=== PATIENT | female | born 1940 | race Caucasian/White ===

== ENCOUNTER 2019-05-10 15:18 | Inpatient (IN) | payer MEDICARE, OTHER, SELFPAY ==
[2019-05-10 15:19] VITALS: BP 145/107; PULSE 89; RESP 24; TEMP 35.6; O2SAT 99; BMI 28.4
--- NOTE | 2019-05-10 15:54 | CT_ITS ---
STUDY: CT ABDOMEN AND PELVIS WITHOUT CONTRAST REASON FOR EXAM: Female, 79 years old. Left flank pain. Currently on antibiotics for UTI. RADIATION DOSAGE (If Supplied By Facility): CTDIvol = ( 10.37 ) mGy, DLP = ( 471.40 ) mGycm TECHNIQUE: Transaxial images were obtained from the dome of the diaphragm to the symphysis pubis without oral contrast, and without intravenous contrast. Sagittal and coronal images were reconstructed. Individualized dose optimization techniques were used for this CT. COMPARISON: None. FINDINGS: The visualized lung bases are unremarkable. The visualized portions of the heart are within normal limits. Normal liver. Normal gallbladder and extrahepatic biliary system. Normal spleen. Normal pancreas. Normal bilateral adrenal glands. The right kidney is of normal size and cortical thickness. There is a 3 mm nonobstructing calculus lower pole calyx. There is no mass or cyst. There is no hydronephrosis. Normal visualized right ureter. The left kidney is of normal size and cortical thickness. There is a 6 mm calculus in mildly dilated upper pole calyx. There is no mass or cyst. There is no other evidence of hydronephrosis. Normal ureter. There is a 4 x 2 x 2 mm calcification at the left UVJ. This is best seen on image 145 of series 2. Normal visualized stomach. Normal small intestine. Normal colon. There is non-visualization of the appendix. There is diffuse atherosclerotic calcification of the abdominal aorta, without a demonstrated aneurysm. Normal inferior vena cava. Normal retroperitoneum. Normal urinary bladder. Normal uterus and ovaries. There is no pelvic lymphadenopathy. No free air or free fluid is seen within the peritoneal cavity. There is an umbilical hernia omental fat. The abdominal wall is otherwise unremarkable. There are diffuse degenerative changes of the visualized lumbar spine. CT/Abdomen/Pelvis without Cont IMPRESSION: 1. Left UVJ calculus without obstructive uropathy. 2. A large calculus in a dilated calyx in the upper pole the left kidney. There is no associated hydronephrosis. 3. Nonobstructing right renal calculus. 4. No other evidence of acute abdominal or pelvic abnormality. 5. Umbilical hernia. 6. Mild degenerative changes of the lumbar spine Electronically Signed: Ronaldo Rodriguez DO at 16:38 EDT Tel [phone], Service support ,
[2019-05-10] MEDS: Ondansetron 4 MG/2 ML Vial IV (16:04)
[2019-05-10] MEDS: Morphine 4 MG/ML Syringe IV (16:06)
[2019-05-10 16:09] VITALS: BP 170/74; PULSE 71; RESP 18; TEMP 37.2; O2SAT 95
[2019-05-10 16:30] LABS: White Blood Count 8.5 K/mm3 (4.4-11.0)
[2019-05-10 16:31] LABS: Absolute Lymphocyte Count 2.69 X10^3/uL (0.83-4.51); Basophil# 0.04 X10^3/uL; Basophil% 0.5 % (0-1); Eosinophil# 0.09 X10^3/uL; Eosinophils% 1.1 % (0-5); Hematocrit 42.6 % (37-47); Lymphocyte # 2.69 X10^3/ul (4.0); Lymphocyte % 31.7 % (19-41); Mean Corp Hgb Conc 32.9 g/dL (32-36); Mean Corpuscular Hgb 30.2 pg (27.0-32.0); Mean Platelet Vol. 10.4 fl (6.2-12.0); Monocyte# 0.69 X10^3/uL; Monocyte% 8.1 % (0-10); NRBC Flagged by Analyzer 0 % (0-5); Neutrophil # 4.95 X10^3/uL (2.7-7.7); Neutrophil % 58.2 % (47-70); Platelet Count 292 K/mm3 (150-450); RBC Distribution Width CV 12.9 % (11.6-14.6); Red Blood Count 4.63 M/mm3 (4.2-5.4)
[2019-05-10 16:32] LABS: Glucose, Dipstick Normal (Normal); Ketone-Dipstick 5 mg/dl (Negative); Leukocyte Esterase-Dipstick 25 /ul (Negative); Mucous, Urine 0 SEEN /hpf (<or=2+); Nitrite-Dipstick Positive (Negative); Occult Blood-Urine 50 /ul (Negative); Protein-Dipstick 30 mg/dl (Negative); Urine Clarity Sl. Cloudy (Clear); Urine Urobilinogen 12 mg/dl (Normal)
--- NOTE | 2019-05-10 16:32 | ED.VISSUMM ---
- ER Visit Summary Date of Service: 05/10/19 Chief Complaint: Left flank pain History of Present Illness: The patient is a 79 F who presents with left flank pain that has been getting worse over the past 4 days. Patient describes her pain is sharp. Patient states nothing makes it better or worse. Patient was seen in urgent care and diagnosed with a urinary tract infection. Patient was started on Cipro. Patient had no improvement with this. Patient followed up with his primary care physician who repeated urinalysis and change the antibiotic. Patient states she is still not feeling any better. Patient denies any nausea or vomiting. Physical Examination: Vital signs are stable. Patient is afebrile. Patient is in no acute distress. Oral mucosa is pink and moist. Neck is supple. Trachea is midline. There is no JVD. Heart was regular rate and rhythm. Lungs are clear and equal bilaterally. Abdomen is soft. Bowel sounds are normal. There is some mild left lower quadrant left upper quadrant tenderness. There is also some left CVA tenderness. There is no rebound or guarding noted. Cranial nerves II through XII are intact. There are no focal motor or sensory deficits noted. Test Results: CT scan of the abdomen pelvis was obtained. The left UVJ calculus with no obstruction. There is a large calculus in the upper pole of the left kidney with a dilated calyx. There is no hydronephrosis. There is a nonobstructing right renal calculus. CBC was normal. Basic metabolic profile was normal. Analysis shows leukocyte esterase of 25 with positive nitrites. There is you to 5 white blood cells and 0-5 epithelial cells. There is 3+ bacteria. Emergency Department Course and Treatment: Patient was given IV fluids, morphine, and Zofran. Patient was feeling better on reevaluation. Case was discussed with Dr. Pagan. He felt that the patient needed to be admitted. He will admit the patient to his service. Patient and family understood and were agreeable with the plan. All questions were answered. Disposition: Admit to hospital Impression: 1. Left UVJ calculus 2. Left renal calculus 3. Bacteriuria This note was generated with [employer] PBCation software. It may contain incorrect words, spelling, and punctuation that were not noted in review of the chart prior to signing ED Disposition - Plan for ED Patient: Disposition: Acute Care Hospital [facility] Diagnosis: Left ureteral calculus, Left renal stone, Bacteriuria Referrals: Supa Diaz MD [Primary Care Provider] -
[2019-05-10 16:44] LABS: Anion Gap 7 (5-15); BUN 17 mg/dL (7-18); BUN/Creat Ratio 18.8 RATIO (10-20); Calcium,Total 9.6 mg/dL (8.5-10.1); Chloride 106 mmol/L (98-107); EST Glomerular Filtration Rate 64 mL/min (>60); Est Glom Filt Rate - Afr Amer 77 mL/min (>60); Estimated Creatinine Clearance 38.87 ml/min; Glucose 107 mg/dL (74-106); Potassium 3.6 mmol/L (3.5-5.1); Sodium Level 138 mmol/L (136-145)
[2019-05-10 17:17] VITALS: BP 153/65; PULSE 78; RESP 16; TEMP 36.9; O2SAT 92
[2019-05-10 17:35] LABS: Color, Urine SEE COMMENT BELOW (Yellow); Urine Bilirubin Dipstick 6 mg/dL (Negative)
[2019-05-10 17:37] LABS: Red Blood Cells-Urine 5-10 SEEN /hpf (0-5); Squamous Epithelial Cells - UA 0-5 SEEN /hpf (5-10); White Blood Cells 0-5 SEEN /hpf (0-5)
[2019-05-10 17:38] LABS: Bacteria 3+ /hpf (None Seen)
[2019-05-10 18:01] VITALS: RESP 16
[2019-05-10 19:56] VITALS: BMI 28.0
[2019-05-10 20:01] VITALS: BMI 28.0
--- NOTE | 2019-05-10 20:24 | PCM.HP.STD ---
Problem List (1) Left ureteral calculus Status: Acute (2) Pyelonephritis of left kidney Status: Acute History of Present Illness Date of Admission: 05/10/19 Chief Complaint: Left severe flank pain The patient is a 79 year old female who on Wednesday started having lower abdominal pain for she thought she was having a urinary tract infection she went to the urgent care was prescribed Cipro which she started taking but then was not getting any better then went back to another physician and was changed to Keflex. She thinks she had a culture done but I do not have the culture results we will get this from the urgent care. But her symptoms persisted and then she started developing severe left flank pain. Very severe in nature. Nausea. No vomiting. Low-grade fevers. She presented to the emergency room where CAT scan was done demonstrated a stone in the distal left ureter with high-grade obstruction, and also a stone nonobstructing in the left kidney. Urine was positive for bacteria infection and nitrite and leukocytes. Because of the failure to proceed with outpatient treatment she is been seen by 3 or 4 doctors within the past few days with no resolution she was admitted for further care. Past Medical History Allergies No Known Allergies Allergy (Verified 05/10/19 15:22) Home Medications: Ambulatory Orders Medication Instructions Recorded Calcium Carbonate [Calcium] 600 mg PO DAILY 05/10/19 Cholecalciferol (Vitamin D3) 400 unit PO DAILY 05/10/19 [Vitamin D3] Ciprofloxacin [Cipro] 250 mg PO BID 05/10/19 Estrogens, Conjugated [Premarin] 1 gm TOPICAL TU 05/10/19 Gluc Taylor/Chondro Taylor A/Vit C/Mn 2 ea PO DAILY 05/10/19 [Glucosamine Chondroitin Tab] Magnesium 250 mg PO DAILY 05/10/19 Manganese Chloride 3.5 mg PO DAILY 05/10/19 Multivitamin [Multiple Vitamins] 1 ea PO DAILY 05/10/19 Phenazopyridine HCl [Pyridium] 200 mg PO TID PRN 05/10/19 Vitamin E 400 unit PO DAILY 05/10/19 Vits A,C,E/Lutein/Minerals [Vision 2 ea PO DAILY 05/10/19 Formula with Lutein Tab] Zinc Gluconate [Zinc] 15 mg PO DAILY 05/10/19 Surgical History: appendectomy Psychiatric 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 Lives: Spouse/ Significant Other Smoking Status: Never smoker Tobacco Use: Non-smoker Alcohol: None Drugs: None - *Family History Maternal History Items: No pertinent history Review of Systems Constitutional: Reports: Chills HEENT: Denies: Head Aches, Sinus Congestion, Sinus Drainage Cardiovascular: Denies: Chest Pain, Palpitations Respiratory: Denies: Cough, Shortness of breath at rest, Sputum production Gastrointestinal: Reports: Abdominal Pain, Nausea Genitourinary: Reports: Dysuria, Frequency Musculoskeletal: Denies: Joint Pain, Joint Tenderness Skin: Reports: Dryness Neurological: Denies: Numbness, Tingling, Focal weakness Psychiatric: Denies: Anxiety, Depression, Homicidal Ideations, Suicidal Ideations Hematologic/ Lymphatic: Denies: Easy Bruising, Easy Bleeding VTE Information - Inpt Only VTE Present on Admission: No VTE Mechan Device Prophylaxis: SCD's Patient Problems: Active and Suspected Problems Left ureteral calculus (Acute) Left renal stone (Acute) Bacteriuria (Acute) Pyelonephritis of left kidney (Acute) - Physical Exam General: Alert, Oriented x3, Cooperative HEENT: Atraumatic, PERRLA, EOMI, Normocephalic Neck: Supple, No JVD, Negative Carotid Bruits Lungs: Clear to auscultation, Normal air movement Cardiovascular: Regular rate, No murmurs Abdomen: Bowel Sounds Present, Soft, Non Tender Extremities: No edema, Capillary Refill Less than 3 Seconds Skin: No rashes, No breakdown Musculoskeletal: No Tenderness to Palpation of Joints or Extremities Neurological: Cranial nerves II-XII grossly intact Psych/Mental Status: Normal Affect, Appropriate Vital Signs Temp Pulse Resp BP Pulse Ox 98.5 F 78 16 153/65 H 92 05/10/19 17:17 05/10/19 17:17 05/10/19 18:01 05/10/19 17:17 05/10/19 17:17 Oxygen Delivery Method Room Air Weight: 67.268 kg Body Mass Index (BMI) 28.0 Laboratory Tests Past 24 Hrs 05/10/19 05/10/19 05/10/19 15:34 15:36 15:36 WBC 8.5 RBC 4.63 Hgb 14.0 Hct 42.6 MCV 92.0 MCH 30.2 MCHC 32.9 RDW Std Deviation 43.0 RDW Coeff of Joni 12.9 Plt Count 292 MPV 10.4 Immature Gran % (Auto) 0.400 Neut % (Auto) 58.2 Lymph % (Auto) 31.7 [place] % (Auto) 8.1 Eos % (Auto) 1.1 Baso % (Auto) 0.5 Absolute Neuts (auto) 5.0 Absolute Lymphs (auto) 2.69 Nucleated RBC % 0 Sodium 138 Potassium 3.6 Chloride 106 Carbon Dioxide 25.0 Anion Gap 7 BUN 17 Creatinine 0.90 Estim Creat Clear Calc 38.87 Est GFR (MDRD) Af Amer 77 Est GFR (MDRD) Non-Af 64 BUN/Creatinine Ratio 18.8 Glucose 107 H Calcium 9.6 Urine Color SEE COMMENT BELOW Urine Clarity Sl. Cloudy Urine pH 7.0 Ur Specific [place] 1.010 Urine Protein 30 H Urine Glucose (UA) Normal Urine Ketones 5 H Urine Occult Blood 50 H Urine Nitrite Positive H Urine Bilirubin 6 H Urine Urobilinogen 12 H Ur Leukocyte Esterase 25 H Urine RBC 5-10 SEEN Urine WBC 0-5 SEEN Ur Squamous Epith Cells 0-5 SEEN Urine Bacteria 3+ Urine Mucus 0 SEEN Assessment/Plan All Active Problems Left ureteral calculus (Acute) Left renal stone (Acute) Bacteriuria (Acute) Pyelonephritis of left kidney (Acute) 79-year-old female with a distal stone in the left ureter, urine positive for infection has failed outpatient management with outpatient antibiotics. Will be admitted to the hospital for further care. She also has a large nonobstructing stone left kidney. Explained to the patient that given her active infection I will not go after the stone and treated just yet but the plan is to hydrate the patient put on broad-spectrum antibiotics, strain all the urine, and if she fails to pass the stone will taken to surgery on Wednesday for extraction of the stone and most likely a stent placement on the left side. We can then plan for treatment of the left kidney stone and interval setting later on once the infection is cleared. She is agreeable with this plan all her questions were answered she was present with her and her daughter.
[2019-05-10 20:43] VITALS: BP 164/79; PULSE 75; RESP 16; TEMP 36.9; O2SAT 96
[2019-05-10] MEDS: 0.9% Normal Saline 1,000 ML 125 ML IV (22:01)
[2019-05-10] MEDS: Ceftriaxone 1 GM/50 ML BAG IV (22:02)
[2019-05-10] MEDS: 0.9% NaCl Peripheral Flush Adult/Peds IV (22:07)
[2019-05-10] MEDS: Ketorolac 15 MG/ML Vial IV (22:07)
[2019-05-11 04:00] VITALS: BP 155/56; PULSE 61; RESP 18; TEMP 36.9; O2SAT 99
[2019-05-11] MEDS: Ketorolac 15 MG/ML Vial IV ×3 (04:09→18:29)
[2019-05-11] MEDS: 0.9% NaCl Peripheral Flush Adult/Peds IV (04:09)
[2019-05-11] MEDS: 0.9% Normal Saline 1,000 ML 125 ML IV ×3 (04:39→21:54)
[2019-05-11] MEDS: Enoxaparin 40 MG/0.4 ML Syringe SC (06:18)
--- NOTE | 2019-05-11 07:36 | PN_ITS ---
Patient Problems: Active and Suspected Problems Left ureteral calculus (Acute) Left renal stone (Acute) Bacteriuria (Acute) Pyelonephritis of left kidney (Acute) Subjective: Patient feels much better this morning she did have a pain medicine last night. Never saw the stone. We will get an x-ray today to see if the stone is still there possible just to taken to surgery tomorrow we will make her n.p.o. at midnight and added to the schedule. - Physical Exam General: Alert, Oriented x3, Cooperative HEENT: Atraumatic, PERRLA, EOMI, Normocephalic Neck: Supple, No JVD, Negative Carotid Bruits Lungs: Clear to auscultation, Normal air movement Cardiovascular: Regular rate, No murmurs Abdomen: Bowel Sounds Present, Soft, Non Tender Extremities: No edema, Capillary Refill Less than 3 Seconds Skin: No rashes, No breakdown Musculoskeletal: No Tenderness to Palpation of Joints or Extremities Neurological: Cranial nerves II-XII grossly intact Psych/Mental Status: Normal Affect, Appropriate Vital Signs Temp Pulse Resp BP Pulse Ox 98.5 F 61 18 155/56 H 99 05/11/19 04:00 05/11/19 04:00 05/11/19 04:00 05/11/19 04:00 05/11/19 04:00 Oxygen Delivery Method Room Air Weight: 67.268 kg Body Mass Index (BMI) 28.0 Intake and Output for Last 24 Hours 05/09/19 05/10/19 05/11/19 23:59 23:59 23:59 Intake Total 1181 / 1181 Output Total 1000 / 1000 Balance 181 / 181 Laboratory Tests Past 24 Hrs 05/10/19 05/10/19 05/10/19 15:34 15:36 15:36 WBC 8.5 RBC 4.63 Hgb 14.0 Hct 42.6 MCV 92.0 MCH 30.2 MCHC 32.9 RDW Std Deviation 43.0 RDW Coeff of Joni 12.9 Plt Count 292 MPV 10.4 Immature Gran % (Auto) 0.400 Neut % (Auto) 58.2 Lymph % (Auto) 31.7 [place] % (Auto) 8.1 Eos % (Auto) 1.1 Baso % (Auto) 0.5 Absolute Neuts (auto) 5.0 Absolute Lymphs (auto) 2.69 Nucleated RBC % 0 Sodium 138 Potassium 3.6 Chloride 106 Carbon Dioxide 25.0 Anion Gap 7 BUN 17 Creatinine 0.90 Estim Creat Clear Calc 38.87 Est GFR (MDRD) Af Amer 77 Est GFR (MDRD) Non-Af 64 BUN/Creatinine Ratio 18.8 Glucose 107 H Calcium 9.6 Urine Color SEE COMMENT BELOW Urine Clarity Sl. Cloudy Urine pH 7.0 Ur Specific [place] 1.010 Urine Protein 30 H Urine Glucose (UA) Normal Urine Ketones 5 H Urine Occult Blood 50 H Urine Nitrite Positive H Urine Bilirubin 6 H Urine Urobilinogen 12 H Ur Leukocyte Esterase 25 H Urine RBC 5-10 SEEN Urine WBC 0-5 SEEN Ur Squamous Epith Cells 0-5 SEEN Urine Bacteria 3+ Urine Mucus 0 SEEN Medical Necessity - Tobacco Use Smoking Status: Never smoker Tobacco Use: Non-smoker Assessment/Plan All Active Problems Left ureteral calculus (Acute) Left renal stone (Acute) Bacteriuria (Acute) Pyelonephritis of left kidney (Acute) kub today OR in AM for laser stone possible stent NPO at midnight.
--- NOTE | 2019-05-11 07:39 | RAD_ITS ---
STUDY: X-RAY - ABDOMEN/PELVIS REASON FOR EXAM: Female, 79 years old. Left kidney stones. TECHNIQUE: Single AP view of the abdomen / pelvis. COMPARISON: None. FINDINGS: There is a moderate amount of colonic fecal material. There is a 5.5 mm calculus in the lower pole calyx of the left kidney. Normal soft tissue structures. There are diffuse degenerative changes of the visualized lumbar spine. RAD/Abdomen Single View IMPRESSION: 5.5 mm calculus in the lower pole calyx of the left kidney. Electronically Signed: Joel Dewitt, at 14:35 EDT , Service support ,
[2019-05-11 10:00] VITALS: BP 148/63; PULSE 66; RESP 18; TEMP 36.4; O2SAT 99
[2019-05-11] MEDS: Docusate Sodium 100 MG Capsule 200 MG PO ×2 (10:29→21:53)
[2019-05-11] MEDS: Ceftriaxone 1 GM/50 ML BAG IV (10:29)
--- NOTE | 2019-05-11 11:30 | CASEMGMT ---
RN CM WEB DEVELOPMENT INSTRUCTOR CM to room to meet with patient for initial transition planning/care coordination assessment. RN CHEO introduced self and role at [facility]. Pt voices understanding and consents to assessment at this time. Pt resting in bed in no distress at this time. Pt is A/O at this time and answers all questions appropriately. Care providers, pharmacy, and demographics verified/updated at this time. PCP: Emily Blas Pharmacy: [facility] Retail Insurance: [facility], Physician Cunningham Prescription Benefit: Yes Living Will/HPOA: Has both LW and HCPOA, who is her , Rahul PEREZ: . 4 adult children Living Arrangements: Lives with her and son Gómez lives with them. Lives in a 2-story home. Denies difficulty with stairs. Independent. Transportation: Pt states drives self and states no transportation concerns at this time. will drive her home @ discharge. DME: Denies using any DME and denies needs. HHC/SNF: No history of either and no needs identified. Pt wishes to return home and states has no concerns with going home at time of discharge. CM to follow for any discharge planning/needs. Pt voices no further concerns/needs at this time. Advised pt to ask for CM if any further questions/concerns/needs arise. Voices understanding. PLAN: Home with spousal support and discharge plans in place. Darby COBB RN, CM
[2019-05-11 16:00] VITALS: BP 152/75; PULSE 73; RESP 18; TEMP 36.6; O2SAT 99
[2019-05-11 20:20] VITALS: BP 140/96; PULSE 74; RESP 18; TEMP 36.6; O2SAT 98
[2019-05-12] VITALS (11 sets, daily range): BP systolic 130–155; BP diastolic 63–82; PULSE 66–100; RESP 16–20; TEMP 36.2–36.9; O2SAT 93–98; BMI 28.0
[2019-05-12] MEDS: Ketorolac 15 MG/ML Vial IV ×3 (01:42→14:23)
[2019-05-12] MEDS: 0.9% Normal Saline 1,000 ML 125 ML IV (05:58)
[2019-05-12] MEDS: 0.9% NaCl Peripheral Flush Adult/Peds IV ×2 (07:59→14:23)
--- NOTE | 2019-05-12 09:06 | PCM.DC.URO ---
Discharge Diet: Light diet - advance as tolerated Discharge Activity: Return to Normal Activity Call your doctor if your incision/area has: Continuous Slow Oozing Call your doctor if you observe: Fever of 101 or Higher Suture Line Care: Avoid Pulling/Pushing, Avoid Pinching/Bending Instructions: Treating Kidney Stones: Ureteroscopic Stone Removal, Ureteral Stents Allergies/Adverse Reactions: Allergies No Known Allergies Allergy (Verified 05/10/19 15:22) Medications to take at Discharge Calcium Carbonate [Calcium] 600 mg PO DAILY 05/10/19 Cholecalciferol (Vitamin D3) [Vitamin D3] 400 unit PO DAILY 05/10/19 Ciprofloxacin [Cipro] 250 mg PO BID 05/10/19 Estrogens, Conjugated [Premarin] 1 gm TOPICAL TU 05/10/19 Gluc Taylor/Chondro Taylor A/Vit C/Mn [Glucosamine Chondroitin Tab] 2 ea PO DAILY 05/10/19 Magnesium 250 mg PO DAILY 05/10/19 Manganese Chloride 3.5 mg PO DAILY 05/10/19 Multivitamin [Multiple Vitamins] 1 ea PO DAILY 05/10/19 Phenazopyridine HCl [Pyridium] 200 mg PO TID PRN 05/10/19 Vitamin E 400 unit PO DAILY 05/10/19 Vits A,C,E/Lutein/Minerals [Vision Formula with Lutein Tab] 2 ea PO DAILY 05/10/19 Zinc Gluconate [Zinc] 15 mg PO DAILY 05/10/19 Cephalexin [Keflex] 500 mg PO Q8 #21 cap 05/12/19 Hydrocodone/Acetaminophen [[place] 5-325 Tablet] 1 ea PO Q4H PRN PRN 5 Days #20 tab 05/12/19 The following prescriptions were given: Cephalexin [Keflex] 500 mg PO Q8 #21 cap Prescription Printed Hydrocodone/Acetaminophen [[place] 5-325 Tablet] 1 ea PO Q4H PRN PRN 5 Days #20 tab PRN Reason: Pain Prescription Printed Primary Care Physician: Supa Diaz MD [Primary Care Provider] - Test Results: Test results from this visit will be discussed in further detail at your follow-up appointment, if applicable. Please Follow Up With: Connor Pagan MD When: please call to make an appointment.
--- NOTE | 2019-05-12 09:07 | PCM.DC.SUM ---
Discharge Date and Diagnosis - Problem List Patient Problems: Active and Suspected Problems Left ureteral calculus (Acute) Left renal stone (Acute) Bacteriuria (Acute) Pyelonephritis of left kidney (Acute) Date of Admission: 05/10/19 Date of Discharge: 05/12/19 - Primary Discharge Diagnosis Active and Suspected Problems Left ureteral calculus (Acute) Left renal stone (Acute) Bacteriuria (Acute) Pyelonephritis of left kidney (Acute) Hospital Course and Treatment Imaging Results: 05/12/19 10:10 O.R. Fluoro for C-Arm [RAD] Urgent Operations: - - Ureteroscopy and laser stone and stent Procedures: None Summary of Care Provided: The patient is a 79 year old female with a UTI and a stone in the distal left ureter and a stone up in the kidney she admitted to the hospital for pyelonephritis UTI she is taken the operating room for ureteroscopy laser lithotripsy of the stone fragments and stent placement to go home after the procedure will be discharged home with antibiotics. Patient Problems: Active and Suspected Problems Left ureteral calculus (Acute) Left renal stone (Acute) Bacteriuria (Acute) Pyelonephritis of left kidney (Acute) - Physical Exam General: Alert, Oriented x3, Cooperative HEENT: Atraumatic, PERRLA, EOMI, Normocephalic Neck: Supple, No JVD, Negative Carotid Bruits Lungs: Clear to auscultation, Normal air movement Cardiovascular: Regular rate, No murmurs Abdomen: Bowel Sounds Present, Soft, Non Tender Extremities: No edema, Capillary Refill Less than 3 Seconds Skin: No rashes, No breakdown Musculoskeletal: No Tenderness to Palpation of Joints or Extremities Neurological: Cranial nerves II-XII grossly intact Psych/Mental Status: Normal Affect, Appropriate Vital Signs Temp Pulse Resp BP Pulse Ox 98.1 F 67 18 144/82 H 97 05/12/19 08:07 05/12/19 08:07 05/12/19 08:07 05/12/19 08:07 05/12/19 08:07 Oxygen Delivery Method Room Air Weight: 67.26 kg Body Mass Index (BMI) 28.0 Intake and Output for Last 24 Hours 05/10/19 05/11/19 05/12/19 23:59 23:59 23:59 Intake Total 3331 / 3331 988 / 988 Output Total 1950 / 1950 1500 / 1500 Balance 1381 / 1381 -512 / -512 Discharge Diet: Light diet - advance as tolerated Discharge Activity: Return to Normal Activity Call your doctor if your incision/area has: Continuous Slow Oozing Call your doctor if you observe: Fever of 101 or Higher Suture Line Care: Avoid Pulling/Pushing, Avoid Pinching/Bending Home Medications: Medications to take at Discharge Calcium Carbonate [Calcium] 600 mg PO DAILY 05/10/19 Cholecalciferol (Vitamin D3) [Vitamin D3] 400 unit PO DAILY 05/10/19 Ciprofloxacin [Cipro] 250 mg PO BID 05/10/19 Estrogens, Conjugated [Premarin] 1 gm TOPICAL TU 05/10/19 Gluc Taylor/Chondro Taylor A/Vit C/Mn [Glucosamine Chondroitin Tab] 2 ea PO DAILY 05/10/19 Magnesium 250 mg PO DAILY 05/10/19 Manganese Chloride 3.5 mg PO DAILY 05/10/19 Multivitamin [Multiple Vitamins] 1 ea PO DAILY 05/10/19 Phenazopyridine HCl [Pyridium] 200 mg PO TID PRN 05/10/19 Vitamin E 400 unit PO DAILY 05/10/19 Vits A,C,E/Lutein/Minerals [Vision Formula with Lutein Tab] 2 ea PO DAILY 05/10/19 Zinc Gluconate [Zinc] 15 mg PO DAILY 05/10/19 Cephalexin [Keflex] 500 mg PO Q8 #21 cap 05/12/19 Hydrocodone/Acetaminophen [[place] 5-325 Tablet] 1 ea PO Q4H PRN PRN 5 Days #20 tab 05/12/19 Following Prescrptions Were Given to Patient: Cephalexin [Keflex] 500 mg PO Q8 #21 cap Prescription Printed Hydrocodone/Acetaminophen [[place] 5-325 Tablet] 1 ea PO Q4H PRN PRN 5 Days #20 tab PRN Reason: Pain Prescription Printed Primary Care Physician: Supa Diaz MD [Primary Care Provider] - Please Follow Up With: Connor Pagan MD When: please call to make an appointment. Patient Instructions: Ureteral Stents, Treating Kidney Stones: Ureteroscopic Stone Removal Medical Necessity - Tobacco Use Smoking Status: Never smoker Tobacco Use: Non-smoker Meaningful Use Info Meaningful Use Diagnoses (Choose all that apply): None applicable
--- NOTE | 2019-05-12 09:34 | PCA ---
pt off floor
--- NOTE | 2019-05-12 09:49 | PCM.OPRPT ---
Problem List (1) Left ureteral calculus Status: Acute (2) Pyelonephritis of left kidney Status: Acute Report of Operation Date of Procedure: 05/12/19 Pre-Operative Diagnosis: Left distal ureteral calculi left renal calculi, Post-Operative Diagnosis: The same Surgery/Procedure Performed:: Cystoscopy and balloon dilation of left ureter, and extraction of stone from the left ureter, left retrograde pyelogram interpretation fluoroscopic images, left ureteroscopy laser lithotripsy of stone in the kidney and left stent placement Description of Surgical Findings:: 79-year-old female was taken back to the operating room at the smooth induction of general anesthesia she was placed supine on the table, she was then placed in dorsolithotomy position. The urethra and vaginal area were prepped and draped in usual sterile fashion, went into the bladder with a 21 [place] rigid cystourethroscope, when I got into the bladder immediately could see a stone emanating from the left ureteral orifice I used the Glidewire to poke at the stone and eventually got the stone to free up and come loose from the distal left ureteral orifice. I then used a wire in it and went up the ureter with a wire and over the wire I balloon dilated distal left ureteral orifice with a balloon dilator to open up the ureter. I then left the wire in place and over the wire went in with a flexible ureteroscope went all the way up to the upper pole the left kidney and encountered multiple large fragments. I then used a 270 ?m laser fiber laser the stone a little tiny pieces. Once the stone was completely laser into small pieces that should all pass of the retrograde pyelogram. Interpreted the fluoroscopic images. And then once the contrast was in place could see the anatomy of the kidney and the ureter I advanced a wire up into the kidney over the wire backed down the ureter inspect the entire ureter no injury trauma perforation of the ureter. I then advanced a stent up in the left kidney once a stent is good position I pulled the wire the stent coiled in the kidney bladder but good position and then I drained the bladder and the patient anesthetic was reversed she will be discharged home today from the hospital and she will follow-up next week to have stent removed. Type of Anesthesia:: General Drains: stent - Admit VTE Documentation VTE Present on Admission: No VTE Mechan Device Prophylaxis: SCD's
[2019-05-12] MEDS: Phenazopyridine 95 MG Tablet 190 MG PO (15:38)
== END 2019-05-12 17:45 | disposition home or self-care (01) | DRG 660 ==
LOC: ED 18:51 → MS3 21:12
PROVIDERS: Admitting Provider Urology; Emergency Provider Emergency Medicine; Family Provider Family Medicine; PCP Family Medicine; Referring Provider Urology; Visit Provider Urology
PROC: 0TJ98ZZ Inspection of Ureter, Via Natural or Artificial Opening Endoscopic (ICD-10-PCS; CPT 52352; principal; 2019-05-12 10:00)
DX: N20.2 Calculus of kidney with calculus of ureter (principal); N10 Acute pyelonephritis; Z78.0 Asymptomatic menopausal state; Z79.899 Other long term (current) drug therapy
CPT/HCPCS: 74018; 74176; 76000; 80048; 81001; 85025; 99285; J7030; A4216; C1769; C2617; J2405

== ENCOUNTER → 2019-05-18 08:22 | Outpatient (CLI) | payer MEDICARE, OTHER, SELFPAY ==
[2019-05-12 08:07] VITALS: BMI 28.0
--- NOTE | 2019-05-18 08:26 | RAD_ITS ---
STUDY: X-RAY - ABDOMEN/PELVIS REASON FOR EXAM: Female, 79 years old. Kidney stone TECHNIQUE: KUB COMPARISON: May 11, 2019 FINDINGS: Normal visualized lung bases. There is an unremarkable bowel gas pattern. There is no demonstrated free abdominal air. The visualized liver, spleen and kidneys are grossly normal in size and morphology. Previously noted left renal calculus is not identified on current study. Left ureterovesical stent has been placed. Lumbar spine demonstrates scoliosis and degenerative changes RAD/Abdomen Single View IMPRESSION: Nonvisualization of prior left renal calculus status post ureterovesical stent placement. Electronically Signed: Jorje Wilkerson MD at 16:59 EDT , Service support ,
== END ==
PROVIDERS: Family Provider Family Medicine; PCP Family Medicine; Referring Provider Nurse Practitioner Adult Health; Visit Provider Nurse Practitioner Adult Health
DX: N20.0 Calculus of kidney (principal)
CPT/HCPCS: 74018

== ENCOUNTER 2019-07-29 13:24 | Emergency (ER) | payer MEDICARE, OTHER, SELFPAY ==
[2019-05-12 08:07] VITALS: BMI 28.0
[2019-07-29] VITALS (7 sets, daily range): BP systolic 125–181; BP diastolic 59–94; PULSE 61–89; RESP 14–20; TEMP 36.7; O2SAT 95–100; BMI 26.4
--- NOTE | 2019-07-29 13:48 | RAD_ITS ---
STUDY: X-RAY - LEFT HUMERUS REASON FOR EXAM: Female, 79 years old. Left arm pain. Status post fall. TECHNIQUE: AP and lateral view(s) of the humerus. COMPARISON: None. FINDINGS: There is anterior dislocation of the left humerus. Surgical pins are seen in the humeral head. There is no demonstrated fracture or osseous destructive process. There is no demonstrated soft tissue abnormality. RAD/Humerus min 2 Views IMPRESSION: 1. Anterior dislocation of the left shoulder. 2. No demonstrated fracture of the humeral shaft. Electronically Signed: Feng Martinez MD at 14:26 EDT Tel , Service support ,
--- NOTE | 2019-07-29 13:49 | ED.VIS.GEN ---
History of Present Illness Chief Complaint: Upper Extremity Injury Informant: Patient, Family Onset: Today Current Severity: Severe Past Medical History - Allergies and Home Meds Allergies/Adverse Reactions: Allergies No Known Allergies Allergy (Verified 07/29/19 13:28) Primary Care Physician: Supa Diaz MD [Primary Care Provider] - Hernán Sarabia DO [STAFF PHYSICIAN] - 3-5 Days Surgical History: appendectomy Smoking Status: Never smoker - Family History Maternal Family History: Reports: No pertinent history Review of Systems General: Denies: Chills, Fever, Sweats Eyes: Denies: Visual changes - bilaterally, Diplopia ENT: Denies: Rhinorrhea, Sore throat Cardiovascular: Denies: Chest pain, Palpitations Respiratory: Denies: Dyspnea, Cough, Dyspnea on exertion Gastrointestinal: Denies: Abdominal pain, Nausea, Vomiting, Diarrhea, Melena, Hematochezia Genitourinary: Denies: Dysuria, Hematuria, Frequency Musculoskeletal: Reports: Extremity Pain. Denies: Back pain Skin: Denies: Rash, Wounds Neurological: Denies: Headache, Weakness, Numbness Physical Exam Vital Signs/Narrative: Vital Signs Temp Pulse Resp BP Pulse Ox 07/29/19 13:25 98.0 F 61 17 125/80 H 99 General: Well nourished, Well developed, No Acute Distress Head: Normocephalic, Atraumatic Eyes: Perrl, EOMI ENT: Moist mucous membranes, No rhinorrhea Neck: Supple, Nontender Cardiovascular: Regular rate, Regular rhythm, No murmurs Respiratory: No distress, CTA bilaterally, Chest nontender Abdomen: Soft, Nontender, Nondistended, Normal bowel sounds Back: Nontender, Normal Inspection Extremities: - Skin: Normal color, No rash Neurological: Alert, Oriented x3, Cranial nerves II-XII grossly intact, Normal Strength, Normal Sensation Psychological: Normal affect, Normal Mood Diagnostic/Tx/Re-eval Clinical Impression(s) from Imaging Studies Humerus X-Ray 07/29/19 13:48 IMPRESSION: 1. Anterior dislocation of the left shoulder. 2. No demonstrated fracture of the humeral shaft. Electronically Signed: Feng Martinez MD at 14:26 EDT Tel , Service support , Shoulder X-Ray 07/29/19 15:06 IMPRESSION: Reduced dislocation. Electronically Signed: Feng Martinez MD at 15:20 EDT Tel , Service support , - Medical Decision Making Patient was evaluated for fall. She had acute onset left shoulder pain. X-ray shows an anterior displaced left shoulder dislocation. Informed consent was obtained. Patient was sedated while on quality assurance monitor chassis using a milligrams of IV propofol. Shoulder was reduced on first attempt. Patient tolerated procedure well. Patient was observed in emergency department post reduction. Postreduction x-rays showed successful reduction. Patient will be placed in a sling and swath. She will be instructed to follow-up with orthopedic surgeon. Patient was then discharged home. Impression: 1. Left shoulder dislocation, successful reduction I supervised the resident and have performed my own pertinent history and physical. Results and treatment plan were discussed. HPI: Patient reports that she missed a step and fell and injured her left shoulder. She denies any other injuries. No blood in the head or loss of consciousness. She is not on anticoagulants. She denies any wrist or hip pain. No neck or back pain. PE: Head: Atraumatic. Neck: No tenderness palpation. Back: No tenderness palpation. Extremity: Obvious anterior dislocation of her left shoulder. She has normal sensation distally and over her deltoid. She has no pain over her wrists or hips. Emergency Department course: X-ray shows an anterior dislocation without fracture. Patient was treated with morphine and had procedural sedation undertaken with propofol. Her shoulder is reduced. She tolerated this well. Treatment Plan: Patient has had a rotator cuff repair in the past by Dr. Sarabia. She will be discharged in a sling and swath. Given [place] for pain. Instructed to follow-up with him in 3 to 5 days for another exam. Return to the emergency department for any worsening symptoms. This note was generated with [employer] dictation software. It may contain incorrect words, spelling, and punctuation that were not noted in review of the chart prior to signing. ED Disposition - Plan for ED Patient: Instructions: DISLOCATION: SHOULDER (Reduced) Prescriptions: Hydrocodone Bitart/Apap 5-325 [[place] 5MG-325MG] 1 tab PO Q4H PRN PRN 2 Days #10 tab PRN Reason: Pain Prescription Printed Referrals: Supa Diaz MD [Primary Care Provider] - Hernán Sarabia DO [STAFF PHYSICIAN] - 3-5 Days
[2019-07-29] MEDS: Morphine 4 MG/ML Syringe IV ×2 (13:53→14:28)
[2019-07-29] MEDS: Ondansetron 4 MG/2 ML Vial IV (14:27)
[2019-07-29] MEDS: Propofol 200 MG/20 ML Vial IV BOLUS (14:54)
--- NOTE | 2019-07-29 15:06 | RAD_ITS ---
STUDY: X-RAY - RIGHT SHOULDER REASON FOR EXAM: Female, 79 years old. Post reduction. TECHNIQUE: 2 view(s) of the shoulder. COMPARISON: Previous of the same date on earlier. FINDINGS: There is cephalad migration of the humeral head consistent with rotator cuff pathology. The previously noted dislocation of the left shoulder has been reduced. Normal acromioclavicular joint. Normal acromion. There is no demonstrated acute fracture. Surgical pins are again seen overlying the left humeral head. The soft tissue structures are unremarkable. Normal visualized pulmonary apex. RAD/Shoulder min 2 Views IMPRESSION: Reduced dislocation. Electronically Signed: Feng Martinez MD at 15:20 EDT Tel , Service support ,
== END 2019-07-29 16:04 | disposition home or self-care (01) ==
PROVIDERS: Emergency Provider Emergency Medicine; Family Provider Family Medicine; PCP Family Medicine
DX: S43.015A Anterior dislocation of left humerus, initial encounter (principal); W10.9XXA Fall (on) (from) unspecified stairs and steps, initial encounter; Y93.9 Activity, unspecified; Y92.9 Unspecified place or not applicable; Y99.9 Unspecified external cause status; Z79.899 Other long term (current) drug therapy
CPT/HCPCS: 23650; 73030; 73060; 96374; 96375; 96376; 99152; 99284; J7040; A4216; J2405

== ENCOUNTER 2020-11-27 08:28 | Outpatient (RCR) | payer MEDICARE, OTHER, SELFPAY ==
[2019-07-29 13:25] VITALS: BMI 26.4
== END 2020-11-27 23:59 ==
LOC: IMMUN 08:28
PROVIDERS: PCP Family Medicine; Visit Provider Family Medicine
DX: Z23 Encounter for immunization (principal)
CPT/HCPCS: 0011A; 0012A

== ENCOUNTER 2021-04-22 15:22 | Observation (INO) | payer MEDICARE, OTHER, SELFPAY ==
[2019-07-29 13:25] VITALS: BMI 26.4
[2021-04-22] VITALS (10 sets, daily range): BP systolic 156–217; BP diastolic 70–89; PULSE 74–95; RESP 14–18; TEMP 36.5–37.1; O2SAT 96–98; BMI 28.3; BMI 28.1
--- NOTE | 2021-04-22 16:06 | CT_ITS ---
EXAMINATION : Head CT w/out contrast HISTORY : Dizziness COMPARISON : None. TECHNIQUE : Multiple contiguous axial images were obtained from the skull base to the vertex without intravenous contrast. A radiation dose optimization technique was used for this scan. FINDINGS : There is no evidence for acute intracranial hemorrhage, mass effect, or midline shift. There is no extra-axial fluid collection. There are periventricular white matter changes consistent with chronic microvascular ischemic disease. There is sulcal widening and ventricular enlargement consistent with cerebral atrophy. There is normal rm-white differentiation, without CT evidence of acute ischemia or infarct. The skull base and calvarium are unremarkable. The orbits are unremarkable. The paranasal sinuses are clear. The mastoid air cells are well-aerated. The soft tissues are unremarkable. CT/Brain/Head without Contrast IMPRESSION: No acute intracranial abnormality. Chronic involutional and ischemic changes of the brain. Electronically Signed: Jacob Mahoney MD at 16:48 EDT Tel , Service support ,
--- NOTE | 2021-04-22 16:13 | EX.ED.DYSGE1 ---
HPI History of Present Illness Chief Complaint: Dizziness Informant: patient Narrative Narrative: Patient is a 81-year-old previously healthy female who presents to the emergency department for what she believes is vertigo. Started around 1130 today. She was just standing up walking around when the symptoms started. She states that she did have 1 similar episode many years ago but has been doing well since. She states that certain head movements make her symptoms worse. Lying still seems to relieve her symptoms. She has been nauseous and vomiting with this. She has not taken anything for it denies any headache or vision change. No weakness or loss of sensation in any extremity. No chest pain, shortness of breath or heart palpitations. She denies any recent illness. No cough, fever/chills. PFSH PFSH Home Medications calcium carbonate 600 mg PO DAILY 05/10/19 [History Last Taken 05/10/19] cholecalciferol (vitamin D3) 400 unit PO DAILY 05/10/19 [History Last Taken 05/10/19] conjugated estrogens 1 gm TOPICAL TU 05/10/19 [History Last Taken 05/09/19] bqqvgqsurxm-iwkzdzkuu-sli C-Mn 2 ea PO DAILY 05/10/19 [History Last Taken 05/10/19] magnesium 250 mg PO DAILY 05/10/19 [History Last Taken 05/10/19] multivitamin 1 ea PO DAILY 05/10/19 [History Last Taken 05/10/19] vit A,C and J-wuherp-kaltyhlb 2 ea PO DAILY 05/10/19 [History Last Taken 05/10/19] vitamin E 400 unit PO DAILY 05/10/19 [History Last Taken 05/10/19] meclizine 25 mg PO TID PRN #20 tab 04/22/21 [Rx Last Taken Unknown] Allergy/AdvReac Type Severity Reaction Status Date / Time No Known Allergies Allergy Verified 04/22/21 15:23 Surgical History (Updated 04/22/21 @ 15:52 by Juana Willoughby) History of appendectomy Social History Smoking Status: Never smoker ROS ROS ED Constitutional Constitutional ED: Denies chills or fever(s) Eyes Eyes: Denies change in vision ENT ENT ED: Denies epistaxis or rhinorrhea Cardiovascular Cardiovascular: Denies chest pain or palpitations Respiratory/Chest Respiratory/Chest: Denies cough, dyspnea or dyspnea on exertion Gastrointestinal Gastrointestinal: Reports nausea and vomiting; Denies abdominal pain or diarrhea Genitourinary Genitourinary ED: Denies dysuria, hematuria or urinary frequency Musculoskeletal Musculoskeletal: Denies back pain or neck pain Integumentary Denies rash Neurologic Neurologic: Reports other Details: Dizziness ; Denies headache(s) or weakness EXAM Physical Exam Const Vital Signs: 04/22/21 15:23 04/22/21 15:51 04/22/21 17:50 Temperature 98.7 F Temperature Source Temporal Pulse Rate 95 Respiratory Rate 18 Respiratory Effort Normal Non-Labored Blood Pressure 217/83 H 211/83 H Blood Pressure Mean 127 125 Pulse Ox 96 Oxygen Delivery Method Room Air 04/22/21 18:17 04/22/21 19:29 04/22/21 20:09 Temperature Temperature Source Pulse Rate 89 74 74 Respiratory Rate 18 16 14 Respiratory Effort Blood Pressure 201/86 H 156/74 H 181/82 H Blood Pressure Mean 124 101 Pulse Ox 98 97 96 Oxygen Delivery Method Room Air Room Air 04/22/21 21:37 04/22/21 22:00 04/22/21 22:35 Temperature 98.2 F Temperature Source Temporal Pulse Rate 81 78 Respiratory Rate 15 16 15 Respiratory Effort Blood Pressure 180/70 H 178/79 H Blood Pressure Mean 106 112 Pulse Ox 97 96 Oxygen Delivery Method Room Air Room Air Positive well nourished and well developed General Appearance ED: well developed and NAD HEENT Reports normocephalic, head/scalp atraumatic and moist mucous membranes Eyes PERRL and EOMs intact bilaterally Eyes Narrative: Fatigable nystagmus to the left. Neck supple Resp normal respiratory effort and clear to auscultation bilaterally Auscultation: Negative for rales, rhonchi or wheezes Cardio regular rate, regular rhythm and no murmurs GI normal to inspection, nondistended, normoactive bowel sounds and non-tender Palpation: soft; Negative for guarding or rebound tenderness present Back/Spine no CVA tenderness Extremity normal to inspection General Extremety ED: Negative for edema or tenderness General Extremity: Negative for edema Neuro oriented x3, CN's II-XII intact bilaterally and no sensory deficits noted Neuro Narrative: No discoordination. No focal neurological deficits. Sensorium / Orientation: alert Motor Exam: strength 5/5 throughout Psych mental status grossly normal Skin no rashes or lesions noted MDM MDM MDM Narrative Medical decision making narrative: Patient presents to the ED for dizziness. This is worse with head positioning. She does describe it as a room spinning sensation. On arrival to the ED she is hypertensive. Otherwise normal vital signs. She does have nystagmus to the left. No focal deficits on exam. Given her hypertension and only one previous episode of this many years ago will obtain head CT. Will treat with meclizine. CT scan of the patient's head revealed chronic changes. No acute intracranial pathology noted. Patient was feeling better and tried to ambulate. Each time she stood up she felt very dizzy and had episodes of vomiting. They were willing to try going home. I did write prescription for meclizine for home treatment. Upon discharge patient had another episode of vomiting and not want to stay in the hospital. I believe that this is a reasonable plan. Basic lab work obtained which did not reveal any significant acute abnormality. Will bring into the hospital for further evaluation and treatment at this time. She understands and is agreeable this plan. Lab Data Labs: Laboratory Results - last 24 hr 04/22/21 04/22/21 21:35 21:35 WBC 8.3 RBC 4.33 Hgb 13.0 Hct 39.4 MCV 91.0 MCH 30.0 MCHC 33.0 RDW Std Deviation 43.1 RDW Coeff of Joni 13.0 Plt Count 275 MPV 10.2 Immature Gran % (Auto) 0.600 Neut % (Auto) 83.5 H Lymph % (Auto) 11.4 L [place] % (Auto) 4.3 Eos % (Auto) 0.0 Baso % (Auto) 0.2 Absolute Neuts (auto) 6.9 Absolute Lymphs (auto) 0.95 Nucleated RBC % 0 Sodium 135 L Potassium 3.7 Chloride 104 Carbon Dioxide 25.0 Anion Gap 6 BUN 10 Creatinine 0.54 L Estim Creat Clear Calc 33.86 Est GFR (MDRD) Af Amer 139 Est GFR (MDRD) Non-Af 115 BUN/Creatinine Ratio 18.5 Glucose 125 H Calcium 8.1 L Radiography Diagnostic Testing: Radiology Impression Brain CT 04/22/21 16:06 IMPRESSION: No acute intracranial abnormality. Chronic involutional and ischemic changes of the brain. Electronically Signed: Jacob Mahoney MD at 16:48 EDT Tel , Service support , Discharge Plan Dx/Rx/DC Orders Clinical Impression: Vertigo, Vomiting, Elevated blood pressure reading Disposition Disposition: Acute Care Hospital [facility]
[2021-04-22] MEDS: Ondansetron ODT 4 MG Tablet PO (16:20)
[2021-04-22] MEDS: 0.9% Normal Saline 1,000 ML 1000 ML IV (16:54)
[2021-04-22] MEDS: LORazepam 2 MG/ML Syringe 0.5 MG IV (16:58)
[2021-04-22] MEDS: Meclizine HCl 25 MG Tablet PO (17:27)
--- NOTE | 2021-04-22 19:30 | ED.RN ---
Patient able to sit up on her own but dizziness came on when standing. She ambulated 2-3 steps began to sway. Patient not able to proceed with walk d/t safety concerns for fall. Her daughter reports they prefer for patient to go home, if safe per the doctor and then if still a problem tomorrow, they can think about something else or her staying. Says the patient's daughter and son will be in the house with her tonight. Dr Hampton aware.
[2021-04-22 21:40] LABS: Absolute Lymphocyte Count 0.95 X10^3/uL (0.83-4.51); Absolute Neutrophil Count 6.9 X10^3/uL (2.0-7.7); Basophil# 0.02 X10^3/uL; Basophil% 0.2 % (0-1); Hematocrit 39.4 % (37-47); Lymphocyte # 0.95 X10^3/ul (0.83-4.51); Lymphocyte % 11.4 % (19-41); Mean Platelet Vol. 10.2 fl (6.2-12.0); Monocyte# 0.36 X10^3/uL; Monocyte% 4.3 % (0-10); NRBC Flagged by Analyzer 0 % (0-5); Neutrophil # 6.92 X10^3/uL (2.7-7.7); Neutrophil % 83.5 % (47-70); Platelet Count 275 K/mm3 (150-450); RBC Distribution Width SD 43.1 fl (35.1-43.9); Red Blood Count 4.33 M/mm3 (4.2-5.4); White Blood Count 8.3 K/mm3 (4.4-11.0)
[2021-04-22 22:26] LABS: Anion Gap 6 (5-15); BUN 10 mg/dL (7-18); BUN/Creat Ratio 18.5 RATIO (10-20); Calcium,Total 8.1 mg/dL (8.5-10.1); Chloride 104 mmol/L (98-107); Creatinine, Serum 0.54 mg/dL (0.55-1.02); EST Glomerular Filtration Rate 115 mL/min (>60); Est Glom Filt Rate - Afr Amer 139 mL/min (>60); Estimated Creatinine Clearance 33.86 ml/min; Glucose 125 mg/dL (74-106); Potassium 3.7 mmol/L (3.5-5.1); Sodium Level 135 mmol/L (136-145)
--- NOTE | 2021-04-22 23:01 | EKG12_ITS ---
Test Reason : ADMISSION EKG Blood Pressure : / mmHG Vent. Rate : 077 BPM Atrial Rate : 077 BPM P-R Int : 180 ms QRS Dur : 080 ms QT Int : 402 ms P-R-T Axes : 061 010 028 degrees QTc Int : 454 ms Normal sinus rhythm Normal ECG Confirmed by LAM STEPHEN, JAN ([id number]), editorial project manager DANY THOMAS ([id number]) on 04/24/2021 9:08:53 AM Referred By: DR LEONARDO Confirmed By:JAN FRITZ MD
--- NOTE | 2021-04-22 23:03 | PCM.HP.STD ---
Documented by User: STEFANO Medrano 04/22/21 23:24 HPI - General General Date of Admission: 04/22/21 Date of Service: 04/22/21 Chief Complaint: Dizziness HPI Narrative NANCY LOAIZA, is a 81 F who presents with complaints of dizziness. Patient states that her dizziness began today with sudden onset and was accompanied by nausea and vomiting. Patient states that she had vertigo approximately 20 years ago and this feels similar. Patient denies any other symptoms. Patient states anytime she moves her head symptoms are worsened, relieved by lying still or sleeping. PFSH Medical History Kidney stones Non-smoker Home Medications calcium carbonate 600 mg PO DAILY 05/10/19 [History Last Taken 05/10/19] cholecalciferol (vitamin D3) 400 unit PO DAILY 05/10/19 [History Last Taken 05/10/19] conjugated estrogens 1 gm TOPICAL TU 05/10/19 [History Last Taken 05/09/19] fobbjyhpczn-tnphqupwh-ffo C-Mn 2 ea PO DAILY 05/10/19 [History Last Taken 05/10/19] magnesium 250 mg PO DAILY 05/10/19 [History Last Taken 05/10/19] multivitamin 1 ea PO DAILY 05/10/19 [History Last Taken 05/10/19] vit A,C and F-mgdfme-wcjnhssp 2 ea PO DAILY 05/10/19 [History Last Taken 05/10/19] vitamin E 400 unit PO DAILY 05/10/19 [History Last Taken 05/10/19] atorvastatin [Lipitor] 10 mg PO QHS #30 tab 04/23/21 [Rx Last Taken Unknown] meclizine 25 mg PO TID PRN PRN #90 tab 04/23/21 [Rx Last Taken Unknown] Allergy/AdvReac Type Severity Reaction Status Date / Time No Known Allergies Allergy Verified 04/22/21 15:23 Surgical History (Updated 04/22/21 @ 23:06 by STEFANO Medrano) History of appendectomy History of rotator cuff surgery Social History (Updated 04/22/21 @ 23:45 by Jannet Casey) household members: spouse and children housing: house Smoking Status: Never smoker alcohol intake: never ROS Constitutional Constitutional: Denies anorexia, chills, fatigue, fever(s) or malaise Cardiovascular Cardiovascular: Denies chest pain, edema or paroxysmal nocturnal dyspnea Respiratory/Chest Respiratory/Chest: Denies cough, shortness of breath at rest or shortness of breath with exertion Gastrointestinal Gastrointestinal: Reports nausea and vomiting; Denies abdominal pain, constipation or diarrhea Genitourinary Genitourinary: Denies dysuria Musculoskeletal Musculoskeletal: Denies back pain, extremity pain, joint pain or joint stiffness Integumentary Integumentary: Denies dry skin Neurologic Neurologic: Reports vertigo; Denies abnormal speech, confusion, headache(s), syncope or tremor(s) Psychiatric Psychiatric: Denies anxiety or depression Endocrine Endocrinology: Denies change in body appearance Hematologic/Lymphatic Hematologic/Lymphatic: Denies easy bleeding or easy bruising Vital Signs Vital Signs Vital Signs: 04/22/21 15:23 04/22/21 15:51 04/22/21 17:50 Temperature 98.7 F Temperature Source Temporal Pulse Rate 95 Respiratory Rate 18 Respiratory Effort Normal Non-Labored Blood Pressure 217/83 H 211/83 H Blood Pressure Mean 127 125 Pulse Ox 96 Oxygen Delivery Method Room Air 04/22/21 18:17 04/22/21 19:29 04/22/21 20:09 Temperature Temperature Source Pulse Rate 89 74 74 Respiratory Rate 18 16 14 Respiratory Effort Blood Pressure 201/86 H 156/74 H 181/82 H Blood Pressure Mean 124 101 Pulse Ox 98 97 96 Oxygen Delivery Method Room Air Room Air 04/22/21 21:37 04/22/21 22:00 04/22/21 22:35 Temperature 98.2 F Temperature Source Temporal Pulse Rate 81 78 Respiratory Rate 15 16 15 Respiratory Effort Blood Pressure 180/70 H 178/79 H Blood Pressure Mean 106 112 Pulse Ox 97 96 Oxygen Delivery Method Room Air Room Air Weight Weight: 150 lb Body Mass Index (BMI) 28.3 Physical Exam Const alert and oriented x3 General Appearance: cooperative HEENT normocephalic and head/scalp atraumatic Eyes conjunctivae normal and no scleral icterus Neck supple and no JVD General: trachea midline Resp normal respiratory effort, normal air movement and clear to auscultation bilaterally Cardio regular rate, regular rhythm, S1 normal heart sound and S2 normal heart sound GI normal to inspection, nondistended, normoactive bowel sounds, soft to palpation and non-tender Extremity normal capillary refill and no clubbing, cyanosis or edema General Extremity: no tenderness to palpation of joints or extremities Skin General Skin Exam: no breakdown and turgor normal Lesions: no lesions Rashes: no rashes Neuro oriented x3, moves all extremities and no focal motor deficits Psych thought process normal, cooperative and affect normal Appearance: appropriate Results Lab / Micro Data Result Diagrams: 04/23/21 05:45 04/23/21 05:45 Labs: Laboratory Results - last 24 hr 04/22/21 21:35: WBC 8.3, RBC 4.33, Hgb 13.0, Hct 39.4, MCV 91.0, MCH 30.0, MCHC 33.0, RDW Std Deviation 43.1, RDW Coeff of Joni 13.0, Plt Count 275, MPV 10.2, Immature Gran % (Auto) 0.600, Neut % (Auto) 83.5 H, Lymph % (Auto) 11.4 L, Stewart % (Auto) 4.3, Eos % (Auto) 0.0, Baso % (Auto) 0.2, Absolute Neuts (auto) 6.9, Absolute Lymphs (auto) 0.95, Nucleated RBC % 0 04/22/21 21:35: Sodium 135 L, Potassium 3.7, Chloride 104, Carbon Dioxide 25.0, Anion Gap 6, BUN 10, Creatinine 0.54 L, Estim Creat Clear Calc 33.86, Est GFR (MDRD) Af Amer 139, Est GFR (MDRD) Non-Af 115, BUN/Creatinine Ratio 18.5, Glucose 125 H, Calcium 8.1 L Radiology Impression Brain CT 04/22/21 16:06 IMPRESSION: No acute intracranial abnormality. Chronic involutional and ischemic changes of the brain. Electronically Signed: Jacob Mahoney MD at 16:48 EDT Tel , Service support , Assessment & Plan Assessment/Plan (1) Vertigo: PLAN: 1. Dizziness-Posterior stroke versus BPPV - Will admit to PCU for cardiac and continuous pulse ox monitoring -CT negative for stroke however, due to patient's new onset hypertension and age will order MRI brain and MRA head and neck for evaluation of posterior stroke versus BPPV. -Pending MRI evaluation, will complete NIH stroke scale every 4 hour and treat symptoms with meclizine as needed. Patient received first dose 1 dose of meclizine in ER. -PT to eval and treat -CBC, BMP, lipid panel ordered for a.m. -EKG upon arrival to floor 2. Hypertension -Patient has no history of hypertension which contributes to concern for posterior stroke -As needed hydralazine and labetalol ordered for blood pressure control discharge -Vital signs every 4 hours per stroke protocol, trend BP 3.Nausea and vomiting -Secondary to #1 -IV Zofran ordered as needed DVT prophylaxis-not indicated This patient was seen by MARCELA MedranoC under the supervision of Dr. Christianson. Documented by User: Dr. Ella Christianson MD 04/23/21 19:05 HPI - General General Date of Admission: 04/22/21 [facility] Medical History Kidney stones Non-smoker Home Medications calcium carbonate 600 mg PO DAILY 05/10/19 [History Last Taken 05/10/19] cholecalciferol (vitamin D3) 400 unit PO DAILY 05/10/19 [History Last Taken 05/10/19] conjugated estrogens 1 gm TOPICAL TU 05/10/19 [History Last Taken 05/09/19] wahpuvwgyeh-ltcwtbqnz-evi C-Mn 2 ea PO DAILY 05/10/19 [History Last Taken 05/10/19] magnesium 250 mg PO DAILY 05/10/19 [History Last Taken 05/10/19] multivitamin 1 ea PO DAILY 05/10/19 [History Last Taken 05/10/19] vit A,C and K-brrdlg-ownglyoe 2 ea PO DAILY 05/10/19 [History Last Taken 05/10/19] vitamin E 400 unit PO DAILY 05/10/19 [History Last Taken 05/10/19] atorvastatin [Lipitor] 10 mg PO QHS #30 tab 04/23/21 [Rx Last Taken Unknown] meclizine 25 mg PO TID PRN PRN #90 tab 04/23/21 [Rx Last Taken Unknown] Allergy/AdvReac Type Severity Reaction Status Date / Time No Known Allergies Allergy Verified 04/22/21 15:23 Surgical History (Updated 04/22/21 @ 23:06 by STEFANO Medrano) History of appendectomy History of rotator cuff surgery Social History (Updated 04/22/21 @ 23:45 by Jannet Casey) household members: spouse and children housing: house Smoking Status: Never smoker alcohol intake: never Results Lab / Micro Data Result Diagrams: 04/23/21 05:45 04/23/21 05:45 Charges/Coding Addendum Addendum: Patient seen by Nemo AGARWAL under my supervision Patient is an 81 y/o female with no significant PMH who was admitted via the ED on 04/22/2021 with a complaint of dizziness and nausea. Patient states she started having dizziness and vertigo which started abruptly on the afternoon of admission. Symptoms were exacerbated by any slight movement. She had associated nausea and vomited once. She denied any ringing in her ears, any headache or any weakness in her lower and upper extremities and any numbness and tingling. She had a similar episode about 20 years ago and says she does not know what the exact diagnosis was then but it resolved after her physician gave her some medication. Vertigo and nausea persisted in the ED and attempts to discharge her were unsuccessful. Vitals done showed elevated blood pressure of around 180 systolic. Patient does not have a history of high blood pressure. Review of systems otherwise negative. CT of the brain done was negative for any acute intracranial pathology.She is being admitted to be managed for intractable vertigo. O/E: Const alert and oriented x3, lethargic General Appearance: cooperative HEENT normocephalic and head/scalp atraumatic Eyes conjunctivae normal and no scleral icterus Neck supple and no JVD General: trachea midline Resp normal respiratory effort, normal air movement and clear to auscultation bilaterally Cardio regular rate, regular rhythm, S1 normal heart sound and S2 normal heart sound GI normal to inspection, nondistended, normoactive bowel sounds, soft to palpation and non-tender Extremity normal capillary refill and no clubbing, cyanosis or edema General Extremity: no tenderness to palpation of joints or extremities Skin General Skin Exam: no breakdown and turgor normal Lesions: no lesions Rashes: no rashes Neuro oriented x3, moves all extremities and no focal motor deficits Psych thought process normal, cooperative and affect normal Appearance: appropriate Plan is to admit to PCU and manage for intractable vertigo. In light of the persistence of her symptoms, I am concerned about the possibility of a posterior stroke. Will therefore order an MRI of the brain and MRA of the head and neck. IV zofran 4mg every 6 hours as needed. Start meclizine. PT/OT consult. fall precautions. IV hydralazine prn. Allow for permissive hypertension in case of stroke; if MRI is negative, consider starting oral BP meds if BP remains elevated. Fall precautions. Rest as per Nemo Morris OPERATIONAL METEOROLOGIST-C's note, which I have reviewed and endorsed. Visit Charges OBSV E&M: 96739 Initial observation care L2
[2021-04-23] VITALS (10 sets, daily range): BP systolic 122–163; BP diastolic 55–80; PULSE 69–81; RESP 15–16; TEMP 36.5–36.8; O2SAT 95–100; BMI 28.1
[2021-04-23 00:03] LABS: Troponin-I HS 14.4 pg/mL (3.0-53.7)
[2021-04-23] MEDS: Atorvastatin Calcium 40 MG Tablet PO (02:07)
[2021-04-23 07:15] LABS: Absolute Lymphocyte Count 1.61 X10^3/uL (0.83-4.51); Absolute Neutrophil Count 4.3 X10^3/uL (2.0-7.7); Basophil# 0.01 X10^3/uL; Basophil% 0.2 % (0-1); Eosinophil# 0.05 X10^3/uL; Eosinophils% 0.8 % (0-5); Hematocrit 38.4 % (37-47); Hemoglobin 12.3 g/dL (12.0-15.0); Lymphocyte # 1.61 X10^3/ul (0.83-4.51); Lymphocyte % 24.4 % (19-41); Mean Corpuscular Hgb 29.4 pg (27.0-32.0); Mean Corpuscular Volume 91.9 fL (81-99); Mean Platelet Vol. 10.6 fl (6.2-12.0); Monocyte# 0.61 X10^3/uL; Monocyte% 9.2 % (0-10); NRBC Flagged by Analyzer 0 % (0-5); Neutrophil # 4.32 X10^3/uL (2.7-7.7); Neutrophil % 65.2 % (47-70); Platelet Count 264 K/mm3 (150-450); RBC Distribution Width CV 13.2 % (11.6-14.6); RBC Distribution Width SD 44.9 fl (35.1-43.9); Red Blood Count 4.18 M/mm3 (4.2-5.4); White Blood Count 6.6 K/mm3 (4.4-11.0)
[2021-04-23 07:42] LABS: Anion Gap 8 (5-15); BUN 11 mg/dL (7-18); BUN/Creat Ratio 19.9 RATIO (10-20); Calcium,Total 8.1 mg/dL (8.5-10.1); Chloride 103 mmol/L (98-107); Cholesterol 215 mg/dL (200); Creatinine, Serum 0.55 mg/dL (0.55-1.02); EST Glomerular Filtration Rate 113 mL/min (>60); Est Glom Filt Rate - Afr Amer 136 mL/min (>60); Estimated Creatinine Clearance 33.86 ml/min; Glucose 92 mg/dL (74-106); High Density Lipoprotein 51 mg/dL; Potassium 3.3 mmol/L (3.5-5.1); Sodium Level 137 mmol/L (136-145); Triglycerides 125 mg/dL; Very Low Density Lipoprotein 25 mg/dL (5-40)
[2021-04-23] MEDS: Aspirin 81 MG TAB.CHEW PO (08:26)
[2021-04-23] MEDS: Potassium Chloride Oral Tablet 20 MEQ 40 MEQ PO (08:27)
--- NOTE | 2021-04-23 08:50 | MRI_ITS ---
STUDY: MRI BRAIN WITHOUT CONTRAST REASON FOR EXAM: Female, 81 years old. cva, dizziness TECHNIQUE: Standardized multiplanar fat and water weighted pulse sequences were obtained. COMPARISON: None. FINDINGS: There is moderate cerebral atrophy with widening of the extra-axial spaces and ventricular dilatation. There are a limited number of small white matter hyperintensities, distributed throughout the deep white matter tracts of the cerebral hemispheres, consistent with mild chronic white matter ischemic changes. There is no evidence for recent intracranial ischemia or other cause of cytotoxic edema on diffusion weighted imaging (DWI). Normal T2* images of the brain without demonstrated susceptibility artifact. There is no demonstrated hemosiderin stain. Normal bilateral basal ganglia. Normal thalami. There is no extra-axial fluid accumulation. Normal flow voids within the major intracranial circulation suggesting patency by spin echo criteria. Normal sella turcica, pituitary gland, infundibular stalk, optic chiasm and hypothalamus. Normal tectal plate and pineal gland. Normal midbrain, jesu and medulla. Normal cerebellum. Normal basal cisterns. Normal bilateral temporal bones. Normal bilateral internal auditory canals. There is an ocular lens implant of the right globe. Normal left globe. The intraorbital contents otherwise are normal. Normal visualized paranasal sinuses. Normal calvarium and skull base. Normal visualized soft tissue structures. Normal visualized upper cervical spine. MRI/Brain without Contrast IMPRESSION: Involutional changes of the brain, as described above. No acute infarct. Electronically Signed: Gómez Ryan MD at 13:14 EDT Tel , Service support ,
--- NOTE | 2021-04-23 09:00 | MRI_ITS ---
STUDY: MRA NECK WITHOUT CONTRAST REASON FOR EXAM: Female, 81 years old. stroke,dizziness TECHNIQUE: Source images were obtained, MIPs were performed. The study was performed unenhanced. COMPARISON: None. FINDINGS: RIGHT CAROTID ARTERIES: Normal right common carotid artery (CCA). Normal right common carotid bulb. Normal origin of the right internal carotid (ICA) artery without a hemodynamically significant stenosis. Normal visualized cervical portion of the right internal carotid artery. Normal origin of the right external carotid artery (ECA). LEFT CAROTID ARTERIES: Normal left common carotid artery (CCA). There is moderate atherosclerotic plaque formation with moderate narrowing of the carotid bulb. There is moderate atherosclerotic plaque formation of the origin of the left internal carotid artery with an estimated stenosis of 50-69% stenosis. Normal visualized cervical portion of the left internal carotid artery. Normal origin of the left external carotid artery (ECA). VERTEBRAL ARTERIES: Normal antegrade flow within the bilateral vertebral artery without a hemodynamically significant stenosis. MRI/MRA Neck without Contrast IMPRESSION: 1. No right carotid stenosis. 2. Moderate (60%) left carotid stenosis. 3. Patent vertebral arteries. Electronically Signed: Gómez Ryan MD at 13:17 EDT Tel , Service support ,
--- NOTE | 2021-04-23 10:00 | MRI_ITS ---
STUDY: MRA OF THE HEAD WITHOUT CONTRAST REASON FOR EXAM: Female, 81 years old. VERTIGO,dizziness TECHNIQUE: 3-D uvhs-jh-ieodkk (TOF) imaging was performed with MIPs. The study was performed unenhanced. COMPARISON: None. FINDINGS: Normal bilateral petrous carotid arteries. Normal right cavernous carotid artery with a normal supraclinoid bifurcation. Normal left cavernous carotid artery with a normal supraclinoid bifurcation. Normal right A1 segments of the anterior cerebral artery. Normal left A1 segments of the anterior cerebral artery. Normal intact anterior communicating artery (ACOM). Normal bilateral A2 segments of the anterior cerebral arteries. Normal right M1 and M2 segments of the middle cerebral arteries, with a normal M1 bifurcation. Normal left M1 and M2 segments of the middle cerebral arteries, with a normal M1 bifurcation. There is a persistent origin of the right posterior cerebral artery with absence of the P1 segment of the right posterior cerebral artery. Normal left posterior communicating artery (PCOM). Normal bilateral vertebral arteries. Normal basilar artery with a normal basilar bifurcation. The visualized bilateral superior cerebellar (SCA) arteries are normal. Normal bilateral P1, P2 and visualized P3 segments of the posterior cerebral arteries. There is no demonstrated aneurysm of the qawalangin of Cm. There is no major vessel occlusion or hemodynamically significant stenosis. There is no demonstrated abnormality of the visualized brain. MRI/MRA Head ONLY without Contrast IMPRESSION: Normal MRA of the head Electronically Signed: Gómez Ryan MD at 13:15 EDT Tel , Service support ,
--- NOTE | 2021-04-23 11:05 | DS.PCM_ITS ---
Providers Date of Admission: 04/22/21 Primary Care Physician: Dr. Supa Diaz MD Reason For Visit: VERTIGO Diagnosis Discharge Diagnosis (1) Vertigo: Status: Acute Code(s): R42 - Dizziness and giddiness Medications at Discharge Home Medications calcium carbonate 600 mg PO DAILY 05/10/19 cholecalciferol (vitamin D3) 400 unit PO DAILY 05/10/19 conjugated estrogens 1 gm TOPICAL TU 05/10/19 foukykpewvz-qxfymtmmv-kbs C-Mn 2 ea PO DAILY 05/10/19 magnesium 250 mg PO DAILY 05/10/19 multivitamin 1 ea PO DAILY 05/10/19 vit A,C and S-kmoltl-puoqvsvb 2 ea PO DAILY 05/10/19 vitamin E 400 unit PO DAILY 05/10/19 atorvastatin [Lipitor] 10 mg PO QHS #30 tab 04/23/21 meclizine 25 mg PO TID PRN PRN #90 tab 04/23/21 Hospital Course Operations None Procedures - (MRI and MRA of the head and neck) Summary of Care Provided Minutes Spent on Discharge: 25 Hospital Course: Mrs. Anne is an 81-year-old white female who presented to the emergency department at [facility] on 04/22/2021 with a chief complaint of dizziness. She reported that the dizziness started suddenly and was accompanied by nausea and vomiting. She indicates she had vertigo approximately 20 years ago and was given a medication that resolved her symptoms. She indicated on admission that this episode felt very similar to that. Upon discussion with her she stated that when she moves her head is when she has symptoms and it is relieved by lying still or sleeping. There is nothing in particular that exacerbated her symptoms other than turning her head. She was placed on telemetry and no abnormal arrhythmias were noted. Her vertiginous symptoms completely resolved by morning of 04/23/2021 and she was able to ambulate independently without any gait deviations related to her dizziness. She was given meclizine in the emergency department and this was ordered as needed on the floor. An MRI was performed and showed no acute abnormality and MRA was performed of her head neck and showed 60% right carotid stenosis and no left carotid stenosis. Her LDL was 139 and her total cholesterol was 215 with an HDL of 51. With this finding in conjunction with the carotid stenosis, she was discharged on Lipitor 10 mg nightly. Her blood pressure was elevated in the emergency department that but this resolved once her symptoms resolved and she is now normotensive without any different intervention. I suspect she has BPPV. I did recommend she follow-up with her primary care physician and potentially go to physical therapy for canalith repositioning maneuvers if this is recurrent. She is to follow-up with her PCP in 1 week. She was also given a prescription for meclizine. Her daughter was at bedside discussed her MRI and MRA findings and discharge plan and all questions were answered from both the patient and the daughter. Physical Exam Const alert, oriented x3, no apparent distress and average body habitus Constitutional Narrative: Elderly white female sitting up in bed, appears comfortable, nontoxic, very pleasant General Appearance: cooperative and comfortable Exam Limitations: no limitations HEENT normocephalic, head/scalp atraumatic, hearing grossly normal bilaterally, moist oral mucous membranes and oropharynx normal Mouth: oral and palatal mucosa normal Eyes PERRL, EOMs intact bilaterally and conjunctivae normal Neck supple Neck Narrative: Trachea midline Resp normal respiratory effort, no retractions, no use of accessory muscles and clear to auscultation bilaterally Auscultation: Negative for crackles, rales, rhonchi or wheezes Cardio regular rate, regular rhythm, S1 normal heart sound, S2 normal heart sound, no rub, no gallops, no clicks and no JVD; Negative for no murmurs Cardio Narrative: 2 out of 6 systolic murmur loudest at the left upper sternal b order GI normal to inspection, nondistended, normoactive bowel sounds, soft to palpation, non-tender and non-distended; Negative for hepatosplenomegaly Extremity normal to inspection and no clubbing, cyanosis or edema Neuro oriented x3, CN's II-XII intact bilaterally, moves all extremities, no focal motor deficits and no sensory deficits noted Neuro Narrative: No nystagmus noted Sensorium / Orientation: awake, alert, oriented to person, oriented to place and oriented to time Speech: speech normal Motor Exam: strength 5/5 throughout Psych affect normal Psych Narrative: Very pleasant Weight / BMI Weight Weight: 67.6 kg Body Mass Index (BMI) 28.1 ABG / Lab / Microbiology Data Result Diagrams: 04/23/21 05:45 04/23/21 05:45 Laboratory: Laboratory Results - last 24 hr 04/22/21 21:35: WBC 8.3, RBC 4.33, Hgb 13.0, Hct 39.4, MCV 91.0, MCH 30.0, MCHC 33.0, RDW Std Deviation 43.1, RDW Coeff of Joni 13.0, Plt Count 275, MPV 10.2, Immature Gran % (Auto) 0.600, Neut % (Auto) 83.5 H, Lymph % (Auto) 11.4 L, Taney % (Auto) 4.3, Eos % (Auto) 0.0, Baso % (Auto) 0.2, Absolute Neuts (auto) 6.9, Absolute Lymphs (auto) 0.95, Nucleated RBC % 0 04/22/21 21:35: Sodium 135 L, Potassium 3.7, Chloride 104, Carbon Dioxide 25.0, Anion Gap 6, BUN 10, Creatinine 0.54 L, Estim Creat Clear Calc 33.86, Est GFR (MDRD) Af Amer 139, Est GFR (MDRD) Non-Af 115, BUN/Creatinine Ratio 18.5, Glucose 125 H, Calcium 8.1 L 04/22/21 23:23: Troponin I High Sens 14.4 04/23/21 05:45: Sodium 137, Potassium 3.3 L, Chloride 103, Carbon Dioxide 26.0, Anion Gap 8, BUN 11, Creatinine 0.55, Estim Creat Clear Calc 33.86, Est GFR (MDRD) Af Amer 136, Est GFR (MDRD) Non-Af 113, BUN/Creatinine Ratio 19.9, Glucose 92, Calcium 8.1 L, Triglycerides 125, Cholesterol 215 H, LDL Cholesterol 139 H, VLDL Cholesterol 25, HDL Cholesterol 51 04/23/21 05:45: WBC 6.6, RBC 4.18 L, Hgb 12.3, Hct 38.4, MCV 91.9, MCH 29.4, MCHC 32.0, RDW Std Deviation 44.9 H, RDW Coeff of Joni 13.2, Plt Count 264, MPV 10.6, Immature Gran % (Auto) 0.200, Neut % (Auto) 65.2, Lymph % (Auto) 24.4, Taney % (Auto) 9.2, Eos % (Auto) 0.8, Baso % (Auto) 0.2, Absolute Neuts (auto) 4.3, Absolute Lymphs (auto) 1.61, Nucleated RBC % 0 Radiography Diagnostic Testing: Radiology Impression Brain CT 04/22/21 16:06 IMPRESSION: No acute intracranial abnormality. Chronic involutional and ischemic changes of the brain. Electronically Signed: Jacob Mahoney MD at 16:48 EDT Tel , Service support , D/C Instructions Discharge Diet: Low fat / Low cholesterol Discharge Activity: Return to Normal Activity May resume sexual activity in: No Restrictions Meaningful Use Info Meaningful Use Diagnoses (Choose all that apply): None applicable Discharge Plan Admission Admit Date/Time: 04/22/21 23:01 Primary Reason for Your Visit: Vertigo Attending Provider: Jossie Alarcon Primary Care Provider: Supa Diaz Instructions Patient Instructions: ED Vertigo, Unspecified Discharge Orders/Prescriptions Prescriptions: New meclizine 25 mg Tablet 25 mg PO TID PRN PRN (Reason: Vertigo) Qty: 90 RF: 0 atorvastatin [Lipitor] 10 mg tablet 10 mg PO QHS Qty: 30 RF: 0 Continued multivitamin 1 EACH tablet 1 ea PO DAILY RF: 0 conjugated estrogens 1 DOSE cream 1 gm topical TU RF: 0 cholecalciferol (vitamin D3) 400 UNIT tablet 400 unit PO DAILY RF: 0 calcium carbonate 600 MG tablet 600 mg PO DAILY RF: 0 magnesium 250 MG tablet 250 mg PO DAILY RF: 0 vitamin E 400 UNIT capsule 400 unit PO DAILY RF: 0 fznrmkkupcu-sjknivnhl-pou C-Mn 1 EACH tablet 2 ea PO DAILY RF: 0 vit A,C and H-ykkfvk-sqcgnwaq 1 EACH tablet 2 ea PO DAILY RF: 0 Referrals / Follow Up: Supa Diaz MD [Primary Care Provider] - In 1 Week Disposition Disposition (needs filled in before D/C Order can be placed): Home, Self Care Charges/Coding Visit Charges Inpatient E&M: 83442 Disch Hosp
--- NOTE | 2021-04-23 13:45 | CASEMGMT ---
Per therapy, pt has no need for any further therapy. SStaten RN CM
--- NOTE | 2021-04-23 13:59 | PCM.DC ---
Discharge Instructions Diet Discharge Diet: Low fat / Low cholesterol Activity May resume sexual activity in: No Restrictions Follow Up Care Test Results: Test results from this visit will be discussed in further detail at your follow-up appointment, if applicable. Discharge Plan Admission Admit Date/Time: 04/22/21 23:01 Primary Reason for Your Visit: Vertigo Attending Provider: Jossie Alarcon Primary Care Provider: Supa Diaz Instructions Patient Instructions: ED Vertigo, Unspecified Discharge Orders/Prescriptions Prescriptions: New meclizine 25 mg Tablet 25 mg PO TID PRN PRN (Reason: Vertigo) Qty: 90 RF: 0 atorvastatin [Lipitor] 10 mg tablet 10 mg PO QHS Qty: 30 RF: 0 Continued multivitamin 1 EACH tablet 1 ea PO DAILY RF: 0 conjugated estrogens 1 DOSE cream 1 gm topical TU RF: 0 cholecalciferol (vitamin D3) 400 UNIT tablet 400 unit PO DAILY RF: 0 calcium carbonate 600 MG tablet 600 mg PO DAILY RF: 0 magnesium 250 MG tablet 250 mg PO DAILY RF: 0 vitamin E 400 UNIT capsule 400 unit PO DAILY RF: 0 rajzxntlwmj-lavhirrzk-cpv C-Mn 1 EACH tablet 2 ea PO DAILY RF: 0 vit A,C and J-gsouoh-cduaedqk 1 EACH tablet 2 ea PO DAILY RF: 0 Referrals / Follow Up: Supa Diaz MD [Primary Care Provider] - In 1 Week Disposition Disposition (needs filled in before D/C Order can be placed): Home, Self Care
--- NOTE | 2021-04-23 14:36 | CASEMGMT ---
SW did not complete a PHQ 9 with patient as per physician she did not have a Stroke or TIA. Natalya VANCE
== END 2021-04-23 11:08 | disposition home or self-care (01) ==
LOC: ED 22:40 → PCU 23:00
PROVIDERS: Nurse Practitioner Family; Admitting Provider Student in an Organized Health Care Education/Training Program; Emergency Provider Emergency Medicine; PCP Family Medicine; Visit Provider Internal Medicine
DX: R42 Dizziness and giddiness (principal); R11.2 Nausea with vomiting, unspecified; Z79.899 Other long term (current) drug therapy; I10 Essential (primary) hypertension; I65.21 Occlusion and stenosis of right carotid artery
CPT/HCPCS: 36415; 70450; 70544; 70547; 70551; 80048; 80061; 84484; 85025; 90471; 93005; 96361; 96374; 97162; 97165; 99218; 99285; J7030; A4216; G0378

== ENCOUNTER → 2022-04-14 | Outpatient (CLI) | payer MEDICARE, OTHER, SELFPAY | END | disposition home or self-care (01) | LOC: LAB 16:54 | PROVIDERS: PCP Family Medicine; Referring Provider Urology; Visit Provider Urology | DX: N30.20 Other chronic cystitis without hematuria (principal) | CPT/HCPCS: 87077; 87086; 87088; 87186 ==

== ENCOUNTER → 2022-05-05 | Outpatient (CLI) | payer MEDICARE, OTHER, SELFPAY ==
--- NOTE | 2022-05-05 18:59 | CT_ITS ---
STUDY: CT ABDOMEN AND PELVIS WITHOUT CONTRAST REASON FOR EXAM: Female, 82 years old. HEMATURIA RADIATION DOSAGE (If Supplied By Facility): CTDIvol = ( 10.23 ) mGy, DLP = ( 513.77 ) mGycm TECHNIQUE: Transaxial images were obtained from the dome of the diaphragm to the symphysis pubis with oral contrast, and without intravenous contrast. Sagittal and coronal images were reconstructed. Individualized dose optimization techniques were used for this CT. COMPARISON: CT abdomen and pelvis May 10, 2019 FINDINGS: There is a nodule within the left lung base measuring 4.5 mm stable since prior study. There is minimal lingular atelectasis stable since prior study. There is vague demonstration of coronary calcification similar to prior study. Normal liver. Normal gallbladder and extrahepatic biliary system. Normal spleen. Normal pancreas. Normal bilateral adrenal glands. There is mild right pelviectasis. There is left-sided renal cortical thinning and 2 punctate calcifications in the upper pole with minimal distention of the left upper pole calyces or cysts that measures 8.9 mm stable since prior study. There is no hydronephrosis. There is no visualized stone along the course of the left ureter. There are visualized phleboliths There is contrast in the stomach. There is contrast in loops of small bowel. The time of the study the contrast does not reach the colon. There is solid stool in the cecum. There is moderate stool within the colon. There is minimal diverticulosis without diverticulitis. There is non-visualization of the appendix. Aorta is partially calcified. Normal inferior vena cava. Normal retroperitoneum. Normal urinary bladder. Normal visualized uterus. There is mild chronic appearing thickening at the level of the umbilicus suggesting possible scarring or postinflammatory change. The fatty umbilical hernia that was seen on prior study is no longer visualized. The bones are minimally osteopenic. From the level of L2 to the sacrum there is disc space narrowing and vacuum phenomenon. At the level of L3-L4 there is a right lateral disc bulge with mild to moderate right neural foramina narrowing minimal central stenosis. There is a broad disc bulge L4-L5 with mild neural foraminal narrowing. CT/Abdomen/Pelvis without Cont IMPRESSION: There is a small focus of punctate stones upper pole left kidney stable since prior study there is a small left upper pole renal cyst. There is minimal pelviectasis. There is no visualized ureteral or bladder stones. Nonspecific bowel gas pattern with contrast. Postoperative change umbilical region likely status post repair of periumbilical hernia. Stable left lower lobe nodule. Trace coronary calcification. Degenerative change in the thoracolumbar spine. Electronically Signed: Aditi Gibson MD at 5:52 EDT ,
== END | disposition home or self-care (01) ==
LOC: CT 18:57
PROVIDERS: PCP Family Medicine; Visit Provider Urology
DX: N30.20 Other chronic cystitis without hematuria (principal); R31.9 Hematuria, unspecified
CPT/HCPCS: 74176; 87086; 87088

== ENCOUNTER → 2022-05-13 | Outpatient (CLI) | payer MEDICARE, OTHER, SELFPAY ==
--- NOTE | 2022-05-13 09:25 | RAD_ITS ---
INDICATION: KUB EXAMINATION/TECHNIQUE: X-RAY - XR Abdomen 1 View COMPARISON: 05/18/2019 FINDINGS: BOWEL GAS PATTERN: Non-obstructive. No bowel or stomach distention. Abundance of stool visualized in the large bowel. FREE AIR: Not assessed on a single supine view. ORGANOMEGALY: Not seen. CALCIFICATIONS: No abnormal calcifications observed. Calcifications visualized superimposed over the left upper quadrant the largest of which measures 0.4 cm. Limited evaluation of the renal best due to superimposed bowel. LOWER CHEST: No acute pathology. BONES AND SOFT TISSUES: No acute pathology. RAD/Abdomen Single View IMPRESSION: Abundance of stool. Calcifications visualized superimposed over the left upper quadrant the largest of which measures 0.4 cm. Limited evaluation of the renal best due to superimposed bowel. Electronically Signed: Peter Luque MD at 12:17 EDT ,
== END | disposition home or self-care (01) ==
LOC: RAD.FUTURE 09:14 → RAD 09:24
PROVIDERS: PCP Family Medicine; Referring Provider Urology; Visit Provider Urology
DX: N20.0 Calculus of kidney (principal); N30.20 Other chronic cystitis without hematuria
CPT/HCPCS: 74018

== ENCOUNTER 2022-06-19 11:44 | Emergency (ER) | payer MEDICARE, OTHER, SELFPAY ==
[2022-06-19 11:44] VITALS: BP 224/80; PULSE 74; RESP 18; TEMP 36; O2SAT 100; BMI 27.3
[2022-06-19 12:18] VITALS: O2SAT 96
[2022-06-19 12:29] VITALS: RESP 18; O2SAT 97
--- NOTE | 2022-06-19 12:47 | RAD_ITS ---
STUDY: X-RAY CHEST REASON FOR EXAM: Female, 82 years old. Shortness of breath. TECHNIQUE: Single AP portable view of the chest. COMPARISON: None. FINDINGS: Minimal increased linear markings at the left lung base suggestive of linear atelectasis and/or scarring. There is no demonstrated pleural abnormality. Normal size heart. Normal mediastinum and tony. Normal visualized pulmonary arteries. Normal visualized aortic arch and descending thoracic aorta. There are degenerative changes of the visualized thoracic spine. Metallic clips are seen overlying the left humeral head suggestive of prior rotator cuff surgery. Calcific tendinitis of the right shoulder. Normal visualized ribs, clavicles, and shoulders. There is no demonstrated abnormality of the visualized soft tissue structures of the upper abdomen. RAD/Chest 1 View (Portable) IMPRESSION: Mild increased markings at the left lung base suggestive of linear atelectasis and/or scarring. Calcific tendinitis of the right shoulder. Electronically Signed: Joel Dewitt MD at 13:38 EDT ,
[2022-06-19 12:51] LABS: Absolute Lymphocyte Count 1.87 X10^3/uL (0.83-4.51); Absolute Neutrophil Count 3.9 X10^3/uL (2.0-7.7); Basophil# 0.03 X10^3/uL; Basophil% 0.5 % (0-1); Eosinophil# 0.09 X10^3/uL; Eosinophils% 1.4 % (0-5); Hematocrit 40.5 % (37-47); Hemoglobin 13.3 g/dL (12.0-15.0); Lymphocyte # 1.87 X10^3/ul (0.83-4.51); Lymphocyte % 28.8 % (19-41); Mean Corp Hgb Conc 32.8 g/dL (32-36); Mean Corpuscular Hgb 29.8 pg (27.0-32.0); Mean Corpuscular Volume 90.6 fL (81-99); Mean Platelet Vol. 10.8 fl (6.2-12.0); Monocyte# 0.61 X10^3/uL; Monocyte% 9.4 % (0-10); NRBC Flagged by Analyzer 0 % (0-5); Neutrophil # 3.86 X10^3/uL (2.7-7.7); Neutrophil % 59.4 % (47-70); POSITIVE COUNT YES; Platelet Count 259 K/mm3 (150-450); RBC Distribution Width SD 42.8 fl (35.1-43.9); Red Blood Count 4.47 M/mm3 (4.2-5.4); White Blood Count 6.5 K/mm3 (4.4-11.0)
[2022-06-19 12:56] LABS: Differential Indicated SCAN CRITERIA MET
--- NOTE | 2022-06-19 12:57 | EKG12_ITS ---
Test Reason : cp Blood Pressure : / mmHG Vent. Rate : 062 BPM Atrial Rate : 062 BPM P-R Int : 180 ms QRS Dur : 086 ms QT Int : 418 ms P-R-T Axes : 061 011 035 degrees QTc Int : 424 ms Normal sinus rhythm Normal ECG Confirmed by YEIMY STEPHEN, ESTELITA ([id number]), editorial assistant DANY THOMAS ([id number]) on 06/22/2022 10:51:26 AM Referred By: Confirmed By:ESTELITA GAFFNEY MD
--- NOTE | 2022-06-19 12:58 | ED.VIS.DYS ---
HPI History of Present Illness Chief Complaint: Shortness of Breath Narrative Narrative: She [id number] female presenting with generalized weakness. She states that 10 days ago she tested positive for COVID-19. She admits to mild cough still. She states he is never had a fever. She has been able to try to drink a lot of water when she first got sick. Patient does not have any nausea or vomiting issues. She states she does not have any fevers, chills, body aches. She not had diarrhea. She denies urinary symptoms. She states that she is on medications by Dr. Pagan to help prevent UTI. She has a history of recurrent UTIs in the past. Patient states that she has not been feeling very good for the last 10 days but today is worse. She feels very weak and she developed some chest tightness at about 1030 today. She denies cardiac history. No history of DVT/PE. PFSH PFS Medical History Kidney stones Non-smoker Home Medications calcium carbonate 600 mg calcium (1,500 mg) tablet 600 mg PO DAILY supplement 05/10/19 [History Last Taken 05/10/19] cholecalciferol (vitamin D3) 10 mcg (400 unit) tablet 400 unit PO DAILY 05/10/19 [History Last Taken 05/10/19] conjugated estrogens 0.625 mg/gram vaginal cream 1 gm topical TU 05/10/19 [History Last Taken 05/09/19] enckxwlncif-lweoorkjs-qlw C-Mn 750 mg-600 mg-55 mg-5 mg tablet 2 ea PO DAILY supplement 05/10/19 [History Last Taken 05/10/19] magnesium 250 mg tablet 250 mg PO DAILY supplement 05/10/19 [History Last Taken 05/10/19] multivitamin 1 ea PO DAILY 05/10/19 [History Last Taken 05/10/19] vit A 300 mcg-C 200 mg-E 27 mg-lutein 2 mg and minerals tablet 2 ea PO DAILY supplement 05/10/19 [History Last Taken 05/10/19] vitamin E 268 mg (400 unit) capsule 400 unit PO DAILY supplement 05/10/19 [History Last Taken 05/10/19] Allergy/AdvReac Type Severity Reaction Status Date / Time No Known Allergies Allergy Verified 04/22/21 15:23 Surgical History (Updated 06/19/22 @ 12:16 by Kavitha Tineo) H/O hernia repair History of appendectomy History of rotator cuff surgery Social History (Updated 04/22/21 @ 23:45 by Jannet Casey) household members: spouse and children housing: house Smoking Status: Never smoker alcohol intake: never EXAM Physical Exam Const Vital Signs: 06/19/22 11:44 06/19/22 12:18 06/19/22 12:29 Temperature 96.8 F L Temperature Source Temporal Pulse Rate 74 Respiratory Rate 18 Respiratory Effort Normal Respiratory Depth Normal Respiratory Pattern Normal Blood Pressure 224/80 H Blood Pressure Mean 128 Pulse Ox 100 97 Oxygen Delivery Method Room Air Room Air Nasal Cannula 06/19/22 12:29 Temperature Temperature Source Pulse Rate Respiratory Rate 18 Respiratory Effort Respiratory Depth Respiratory Pattern Blood Pressure Blood Pressure Mean Pulse Ox 97 Oxygen Delivery Method Room Air MDM MDM Lab Data Labs: Laboratory Results - last 24 hr 06/19/22 12:40 WBC 6.5 RBC 4.47 Hgb 13.3 Hct 40.5 MCV 90.6 MCH 29.8 MCHC 32.8 RDW Std Deviation 42.8 RDW Coeff of Joni 13.0 Plt Count 259 MPV 10.8 Immature Gran % (Auto) 0.500 Neut % (Auto) 59.4 Lymph % (Auto) 28.8 [place] % (Auto) 9.4 Eos % (Auto) 1.4 Baso % (Auto) 0.5 Absolute Neuts (auto) 3.9 Absolute Lymphs (auto) 1.87 Nucleated RBC % 0 Discharge Plan Triage Chief Complaint: Shortness of Breath ED Provider: Bentley Wayne Dx/Rx/DC Orders Prescriptions: No Action multivitamin 1 EACH tablet 1 ea PO DAILY conjugated estrogens 1 DOSE cream 1 gm topical TU Label Comments: use 1 gram vaginally once weekly as directed, and small pea sized dabexternally once weekly cholecalciferol (vitamin D3) 400 UNIT tablet 400 unit PO DAILY calcium carbonate 600 MG tablet 600 mg PO DAILY magnesium 250 MG tablet 250 mg PO DAILY vitamin E 400 UNIT capsule 400 unit PO DAILY gnmpckztuez-gwrxcajzz-raj C-Mn 1 EACH tablet 2 ea PO DAILY vit A,C and M-xeiemf-ufuwcmhh 1 EACH tablet 2 ea PO DAILY Primary Care Provider: Supa Diaz Referrals: Supa Diaz MD [Primary Care Provider] -
[2022-06-19 13:06] LABS: Anion Gap 7 (5-15); BUN 15 mg/dL (7-18); BUN/Creat Ratio 19.7 RATIO (10-20); Calcium,Total 9.4 mg/dL (8.5-10.1); Chloride 104 mmol/L (98-107); Creatinine, Serum 0.76 mg/dL (0.55-1.02); EST Glomerular Filtration Rate 77 mL/min (>60); Est Glom Filt Rate - Afr Amer 94 mL/min (>60); Estimated Creatinine Clearance 33.29 ml/min; Glucose 85 mg/dL (74-106); Potassium 4.7 mmol/L (3.5-5.1); Sodium Level 138 mmol/L (136-145)
[2022-06-19 13:09] LABS: Differential Comment SCANNED
[2022-06-19 13:43] LABS: Troponin-I HS (w/2H Reflex) 7 pg/mL (3.0-54.0)
[2022-06-19 13:53] LABS: Mucous, Urine 0 SEEN /hpf (<or=2+); Red Blood Cells-Urine 0 SEEN /hpf (0-5); White Blood Cells 0 SEEN /hpf (0-5)
[2022-06-19 13:58] LABS: Color, Urine Yellow (Yellow); Glucose, Dipstick Normal (Normal); Ketone-Dipstick Negative (Negative); Leukocyte Esterase-Dipstick Negative /ul (Negative); Nitrite-Dipstick Negative (Negative); Occult Blood-Urine Negative /ul (Negative); Protein-Dipstick Negative (Negative); Urine Bilirubin Dipstick Negative (Negative); Urine Clarity Sl. Cloudy (Clear); Urine Urobilinogen Normal (Normal)
[2022-06-19 14:02] VITALS: BP 154/68; PULSE 65; RESP 16; O2SAT 97
[2022-06-19 14:03] LABS: Bacteria 1+ /hpf (None Seen); Squamous Epithelial Cells - UA 0-5 SEEN /hpf (5-10)
[2022-06-19 14:14] LABS: D-Dimer Quantitative (DVT/PE) 0.84 FEU/ug/m (0.27-0.49)
--- NOTE | 2022-06-19 14:19 | CT_ITS ---
STUDY: CTA CHEST REASON FOR EXAM: Female, 82 years old. Shortness of breath and chest pain. Recent diagnosis of Covid. RADIATION DOSAGE (If Supplied By Facility): CTDIvol = ( 10.04 ) mGy, DLP = ( 359.40 ) mGycm TECHNIQUE: The examination was performed with the intravenous administration of IV 75mL Isovue-370. Post-processing of the angiographic images was performed, with multiplanar reformation and 3D reconstruction. Individualized dose optimization techniques were used for this CT. COMPARISON: None. FINDINGS: Normal enhancement of the main pulmonary artery and right and left pulmonary arteries. Normal enhancement of the bilateral peripheral pulmonary arteries. There is no demonstrated pulmonary embolism. There is atherosclerotic calcification of the aortic arch with tortuosity. There is no demonstrated aortic dissection. Normal heart and pericardium. Normal mediastinum. Normal hilar regions. Normal visualized trachea and bronchi. The lungs are well expanded. Mild degree of increased markings in the posterior aspect of the upper lobe suggestive of a atelectasis. Mild scarring at the lung bases. Normal pleura. Normal chest wall structures. There are degenerative changes of thoracic spine. 5 mm nonobstructive calculus in the upper pole of the left kidney. CT/CTA Chest W/WO Contrast IMPRESSION: No evidence of pulmonary embolism. Nonobstructive calculus in the upper pole of the left kidney. Electronically Signed: Joel Dewitt MD at 14:59 EDT ,
[2022-06-19 15:28] VITALS: PULSE 67; RESP 20; O2SAT 95
[2022-06-19 15:29] LABS: Reflex Troponin-HS? (from REC) Y
== END 2022-06-19 15:32 | disposition home or self-care (01) ==
PROVIDERS: Emergency Provider Student in an Organized Health Care Education/Training Program; PCP Family Medicine; Visit Provider Student in an Organized Health Care Education/Training Program
DX: R53.1 Weakness (principal); Z20.822 Contact with and (suspected) exposure to COVID-19; R07.89 Other chest pain; R06.00 Dyspnea, unspecified; Z87.440 Personal history of urinary (tract) infections
CPT/HCPCS: 71045; 71275; 80048; 81001; 84484; 85025; 85379; 87811; 93005; 94760; 99285; Q9967; A4216

== ENCOUNTER 2022-09-12 19:16 | Emergency (ER) | payer MEDICARE, OTHER, SELFPAY ==
[2022-09-12 19:17] VITALS: BP 170/96; PULSE 88; RESP 18; TEMP 36; O2SAT 99; BMI 27.9
--- NOTE | 2022-09-12 19:33 | EKG12_ITS ---
Test Reason : DIZZINESS Blood Pressure : / mmHG Vent. Rate : 083 BPM Atrial Rate : 083 BPM P-R Int : 178 ms QRS Dur : 082 ms QT Int : 402 ms P-R-T Axes : 061 024 043 degrees QTc Int : 472 ms Normal sinus rhythm Normal ECG Confirmed by YEIMY STEPHEN, ESTELITA ([id number]), deputy editor in chief DANY THOMAS ([id number]) on 09/15/2022 12:36:45 PM Referred By: Confirmed By:ESTELITA GAFFNEY MD
--- NOTE | 2022-09-12 19:33 | CT_ITS ---
STUDY: CT BRAIN WITHOUT CONTRAST REASON FOR EXAM: Female, 82 years old. vertigo RADIATION DOSAGE (If Supplied By Facility): CTDIvol = ( 44.99 ) mGy, DLP = ( 796.11 ) mGycm TECHNIQUE: Transaxial CT imaging of the brain was performed without administration of intravenous contrast material. Individualized dose optimization techniques were used for this CT. COMPARISON: 04/22/2021. FINDINGS: Normal soft tissue structures. Normal calvarium. There is mild cerebral atrophy with widening of the extra-axial spaces and ventricular dilatation. Normal white matter tracts of the cerebral hemispheres. Normal basal ganglia and thalami. Normal brainstem. Normal cerebellum. There is no intracranial hemorrhage. There are no findings of an acute ischemic infarction. Normal visualized paranasal sinuses. CT/Brain/Head without Contrast IMPRESSION: Normal unenhanced CT scan of the brain. Electronically Signed: Ida Castro MD at 20:30 EST Reading Location ID and State: [id number] / Tel , Service support ,
--- NOTE | 2022-09-12 19:37 | EX.ED.DYSGE1 ---
HPI History of Present Illness Chief Complaint: Dizziness Informant: patient Onset/Context/Timing Onset: Today Current Severity: Moderate Maximum Severity: Moderate Narrative Narrative: Patient presents secondary to vertigo. She states symptoms started around 10 AM this morning. She been up for couple hours and has been feeling well. She ate breakfast without difficulty. She had rather abrupt onset of vertigo followed by nausea and vomiting. She has had at least 2 prior episodes of vertigo and was admitted to the hospital in April of last year with similar. She had an MRI and MRA at that time that was negative. She tried taking meclizine at home today, but was vomiting and cannot keep it in her. [facility] Medical History Kidney stones Non-smoker Vertigo Home Medications calcium carbonate 600 mg calcium (1,500 mg) tablet 600 mg PO DAILY supplement 05/10/19 [History Last Taken 05/10/19] cholecalciferol (vitamin D3) 10 mcg (400 unit) tablet 400 unit PO DAILY 05/10/19 [History Last Taken 05/10/19] conjugated estrogens 0.625 mg/gram vaginal cream 1 gm topical TU 05/10/19 [History Last Taken 05/09/19] keptcodzfup-rxsmjtkne-zlq C-Mn 750 mg-600 mg-55 mg-5 mg tablet 2 ea PO DAILY supplement 05/10/19 [History Last Taken 05/10/19] magnesium 250 mg tablet 250 mg PO DAILY supplement 05/10/19 [History Last Taken 05/10/19] multivitamin 1 ea PO DAILY 05/10/19 [History Last Taken 05/10/19] vit A 300 mcg-C 200 mg-E 27 mg-lutein 2 mg and minerals tablet 2 ea PO DAILY supplement 05/10/19 [History Last Taken 05/10/19] vitamin E 268 mg (400 unit) capsule 400 unit PO DAILY supplement 05/10/19 [History Last Taken 05/10/19] ondansetron 4 mg disintegrating tablet 4 mg PO Q8H PRN nausea and vomiting #10 tabs 09/12/22 [Rx Last Taken Unknown] Allergy/AdvReac Type Severity Reaction Status Date / Time No Known Allergies Allergy Verified 09/12/22 19:17 Surgical History H/O hernia repair History of appendectomy History of rotator cuff surgery Social History household members: spouse and children housing: house Smoking Status: Never smoker alcohol intake: never ROS ROS ED Constitutional Constitutional ED: Denies chills or fever(s) Eyes Eyes: Denies change in vision or discharge from eye(s) ENT ENT ED: Denies discharge from eye(s), rhinorrhea or sore throat Cardiovascular Cardiovascular: Denies chest pain or palpitations Respiratory/Chest Respiratory/Chest: Denies cough or dyspnea Gastrointestinal Gastrointestinal: Reports nausea and vomiting; Denies abdominal pain or diarrhea Genitourinary Genitourinary ED: Denies dysuria Musculoskeletal Musculoskeletal: Denies back pain or extremity pain Integumentary Denies Abrasions or rash Neurologic Neurologic: Reports weakness; Denies headache(s) Psychiatric Psychiatric: Denies anxiety or depression Endocrine Endocrinology: Denies polydipsia or polyuria Allergic/Immunologic Allergic/Immunologic ED: Denies lip swelling or urticaria EXAM Physical Exam Const Vital Signs: 09/12/22 19:17 09/12/22 20:12 09/12/22 20:25 Temperature 96.8 F L Temperature Source Temporal Pulse Rate 88 Respiratory Rate 18 Respiratory Effort Normal Non-Labored Respiratory Pattern Normal Blood Pressure 170/96 H Blood Pressure Mean 120 Pulse Ox 99 85 Oxygen Delivery Method Room Air Room Air Oxygen Flow Rate (L/min) 09/12/22 20:25 09/12/22 21:35 Temperature Temperature Source Pulse Rate 81 Respiratory Rate 16 Respiratory Effort Respiratory Pattern Blood Pressure 128/59 H Blood Pressure Mean 82 Pulse Ox 93 94 Oxygen Delivery Method Nasal Cannula Room Air Oxygen Flow Rate (L/min) 2 Positive well nourished and well developed General Appearance ED: well developed HEENT Reports normocephalic and head/scalp atraumatic Eyes PERRL and EOMs intact bilaterally Neck supple Chest Wall inspection of chest normal and palpation of chest normal Resp normal respiratory effort and clear to auscultation bilaterally Cardio regular rate and regular rhythm GI normal to inspection, nondistended, normoactive bowel sounds Palpation: soft Extremity normal to inspection Neuro oriented x3 and no sensory deficits noted Sensorium / Orientation: alert Motor Exam: strength 5/5 throughout Psych mental status grossly normal Skin no rashes or lesions noted MDM MDM MDM Narrative Medical decision making narrative: EKG, head CT, lab work obtained. Patient given Zofran and 0.25 mg of IV Ativan. Lab Data Attestation: I reviewed the patient's lab results. Labs: Laboratory Results - last 24 hr 09/12/22 09/12/22 20:02 20:02 WBC 9.3 RBC 4.70 Hgb 14.2 Hct 42.8 MCV 91.1 MCH 30.2 MCHC 33.2 RDW Std Deviation 46.4 H RDW Coeff of Joni 13.7 Plt Count 300 MPV 10.7 Immature Gran % (Auto) 0.200 Neut % (Auto) 88.5 H Lymph % (Auto) 8.4 L [place] % (Auto) 2.6 Eos % (Auto) 0.1 Baso % (Auto) 0.2 Absolute Neuts (auto) 8.3 H Absolute Lymphs (auto) 0.78 L Nucleated RBC % 0 Sodium 140 Potassium 3.7 Chloride 106 Carbon Dioxide 27.0 Anion Gap 7 BUN 18 Creatinine 0.72 Estim Creat Clear Calc 33.29 Est GFR (MDRD) Af Amer 99 Est GFR (MDRD) Non-Af 82 BUN/Creatinine Ratio 24.9 H Glucose 142 H Calcium 9.2 Radiography Diagnostic Testing: Clinical Impression(s) from Imaging Studies Brain CT 09/12/22 19:33 IMPRESSION: Normal unenhanced CT scan of the brain. Electronically Signed: Ida Castro MD at 20:30 EST Reading Location ID and State: [id number] / Tel , Service support , EKG Initial EKG: Attestation: I personally reviewed and interpreted this EKG as follows: Interpretation: Sinus Rhythm (Sinus at 83 with no acute ischemia.) Treatment and Re-Evaluation Narrative: Nursing staff advised that the patient was sleeping after being given medication. She did see desaturate and was snoring. She has been on 2 L nasal cannula. Lab work is unremarkable. Head CT is normal. EKG reveals no ischemia. Patient is awoken. She reports feeling much improved and denies dizziness or nausea at this time. Her oxygen has been turned off and she is sitting upright able to tolerate p.o. fluids. She has meclizine to use at home. I will write her Zofran to help with the nausea if needed. Discharge Plan Triage Chief Complaint: Dizziness Other Complaint: Nausea/Vomiting ED Provider: Alexandra Titus Dx/Rx/DC Orders Clinical Impression: Vertigo Instructions: ED BPV Vertigo Prescriptions: New ondansetron 4 mg tablet,disintegrating 4 mg PO Q8H PRN (Reason: nausea and vomiting) Qty: 10 0RF No Action multivitamin 1 EACH tablet 1 ea PO DAILY conjugated estrogens 1 DOSE cream 1 gm topical TU Label Comments: use 1 gram vaginally once weekly as directed, and small pea sized dabexternally once weekly cholecalciferol (vitamin D3) 400 UNIT tablet 400 unit PO DAILY calcium carbonate 600 MG tablet 600 mg PO DAILY magnesium 250 MG tablet 250 mg PO DAILY vitamin E 400 UNIT capsule 400 unit PO DAILY jeugwwltrjg-vfeqelspa-jli C-Mn 1 EACH tablet 2 ea PO DAILY vit A,C and J-chifmd-qynzvrxc 1 EACH tablet 2 ea PO DAILY Primary Care Provider: Supa Diaz Referrals: Supa Diaz MD [Primary Care Provider] - 3-5 Days if not improving Disposition Disposition: Home, Self Care
[2022-09-12] MEDS: LORazepam 2 MG/ML Syringe 0.25 MG IV (19:55)
[2022-09-12] MEDS: 0.9% Normal Saline 1,000 ML 1000 ML IV (19:55)
[2022-09-12] MEDS: Ondansetron 4 MG/2 ML Vial IV (19:55)
[2022-09-12 20:25] VITALS: O2SAT 85; O2SAT 93
[2022-09-12 20:25] LABS: Absolute Lymphocyte Count 0.78 X10^3/uL (0.83-4.51); Absolute Neutrophil Count 8.3 X10^3/uL (2.0-7.7); Basophil# 0.02 X10^3/uL; Basophil% 0.2 % (0-1); Eosinophil# 0.01 X10^3/uL; Eosinophils% 0.1 % (0-5); Hematocrit 42.8 % (37-47); Hemoglobin 14.2 g/dL (12.0-15.0); Lymphocyte # 0.78 X10^3/ul (0.83-4.51); Lymphocyte % 8.4 % (19-41); Mean Corp Hgb Conc 33.2 g/dL (32-36); Mean Corpuscular Hgb 30.2 pg (27.0-32.0); Mean Corpuscular Volume 91.1 fL (81-99); Mean Platelet Vol. 10.7 fl (6.2-12.0); Monocyte# 0.24 X10^3/uL; Monocyte% 2.6 % (0-10); NRBC Flagged by Analyzer 0 % (0-5); Neutrophil # 8.26 X10^3/uL (2.7-7.7); Neutrophil % 88.5 % (47-70); Platelet Count 300 K/mm3 (150-450); RBC Distribution Width CV 13.7 % (11.6-14.6); RBC Distribution Width SD 46.4 fl (35.1-43.9); White Blood Count 9.3 K/mm3 (4.4-11.0)
[2022-09-12 20:59] LABS: Anion Gap 7 (5-15); BUN 18 mg/dL (7-18); BUN/Creat Ratio 24.9 RATIO (10-20); Calcium,Total 9.2 mg/dL (8.5-10.1); Chloride 106 mmol/L (98-107); Creatinine, Serum 0.72 mg/dL (0.55-1.02); EST Glomerular Filtration Rate 82 mL/min (>60); Est Glom Filt Rate - Afr Amer 99 mL/min (>60); Estimated Creatinine Clearance 33.29 ml/min; Glucose 142 mg/dL (74-106); Potassium 3.7 mmol/L (3.5-5.1); Sodium Level 140 mmol/L (136-145)
[2022-09-12 21:35] VITALS: BP 128/59; PULSE 81; RESP 16; O2SAT 94
[2022-09-12 22:08] VITALS: BP 129/62; PULSE 82; RESP 16; O2SAT 95
== END 2022-09-12 22:24 | disposition home or self-care (01) ==
PROVIDERS: Emergency Provider Emergency Medicine; PCP Family Medicine; Visit Provider Emergency Medicine
DX: R42 Dizziness and giddiness (principal); R11.2 Nausea with vomiting, unspecified
CPT/HCPCS: 70450; 80048; 85025; 93005; 96361; 96374; 96375; 99284; J7030; A4216; J2405

== ENCOUNTER 2023-10-07 16:01 | Inpatient (IN) | payer MEDICARE, OTHER, SELFPAY ==
[2023-10-07 16:02] VITALS: BP 167/81; PULSE 74; RESP 16; TEMP 35.6; O2SAT 98
[2023-10-07 17:34] VITALS: BP 149/67; PULSE 76; RESP 17; O2SAT 97
[2023-10-07 17:46] LABS: Absolute Lymphocyte Count 1.12 X10^3/uL (0.83-4.51); Absolute Neutrophil Count 10.4 X10^3/uL (2.0-7.7); Basophil# 0.04 X10^3/uL; Basophil% 0.3 % (0-1); Eosinophil# 0.03 X10^3/uL; Eosinophils% 0.2 % (0-5); Hematocrit 46.6 % (37-47); Hemoglobin 15.1 g/dL (12.0-15.0); Lymphocyte # 1.12 X10^3/ul (0.83-4.51); Mean Corp Hgb Conc 32.4 g/dL (32-36); Mean Corpuscular Hgb 29.3 pg (27.0-32.0); Mean Corpuscular Volume 90.5 fL (81-99); Mean Platelet Vol. 10.3 fl (6.2-12.0); Monocyte# 0.75 X10^3/uL; NRBC Flagged by Analyzer 0 % (0-5); Neutrophil # 10.44 X10^3/uL (2.7-7.7); Neutrophil % 84.1 % (47-70); Platelet Count 295 K/mm3 (150-450); RBC Distribution Width CV 13.3 % (11.6-14.6); RBC Distribution Width SD 44.4 fl (35.1-43.9); Red Blood Count 5.15 M/mm3 (4.2-5.4); White Blood Count 12.4 K/mm3 (4.4-11.0)
--- OUTSIDE RECORDS SUMMARY | 2023-10-07 17:46 | XMS RPT_ITS | CCD ---
Author Name Unknown Address [address] [place] [address] Organization [facility] Care Team Providers Care [employer] Name Role Phone Leticia Davidson MD Primary Care Provider LETICIA DAVIDSON Primary Care Unavailable LETICIA DAVIDSON Primary Care Unavailable DEVEN LARIOS Attending Unavailable ANNABELLA BANGURA Referring Unavailable LETICIA DAVIDSON Primary Care Unavailable LETICIA DAVIDSON Primary Care Unavailable LETICIA DAVIDSON Primary Care Unavailable LETICIA DAVIDSON Referring Unavailable DANY WEBB Attending Unavailable LETICIA DAVIDSON Primary Care Unavailable LETICIA DAVIDSON Primary Care Unavailable LETICIA DAVIDSON Primary Care Unavailable LETICIA DAVIDSON Primary Care Unavailable LOGAN BARRAZA Referring Unavailable LETICIA DAVIDSON Primary Care Unavailable Allergies Allergy Classification Reported Allergen(s) Allergy Type Date of Onset Reaction(s) Facility (8 sources) Seasonal allergy; Translations: [SEASONAL ALLERGIES] Allergy to substance 4 Other: See Comments [facility] Work Phone: Medications Current Medications Medication Drug Class(es) Dates Sig (Normalized) Sig (Original) amoxicillin 875 mg oral tablet (1 source) Penicillin-class Antibacterial Start: 08-05-2022 End: 08-12-2022 take 1 tablet by mouth twice daily amoxicillin (AMOXIL) 875 mg tablet Take 1 tablet by mouth twice daily for 7 days. 14 tablet 0 08/05/2022 08/12/2022 Active Completed/Discontinued Medications Medication Drug Class(es) Dates Sig (Normalized) Sig (Original) ascorbic acid 1000 mg oral tablet (2 sources) Vitamin C Start: 08-04-2022 take 1 tablet by mouth once daily at bedtime VITAMIN C 1,000 mg tablet Take 1,000 mg by mouth daily at bedtime. 0 08/04/2022 Active Problems Active Problems Problem Classification Problem Date Documented Da te Episodic/Chronic Conditions associated with dizziness or vertigo (1 source) Vertigo; Translations: [Dizziness and giddiness] Episodic Disorders of lipid metabolism (7 sources) Hypercholesterolemi a; Translations: [Pure hypercholesterolemi a, unspecified] Onset: 05-02-2021 05-02-2021 Chronic Esophageal disorders (7 sources) Esophageal dysmotility; Translations: [Dyskinesia of esophagus] Onset: 09-21-2012 09-21-2012 Chronic Other ear and sense organ disorders (1 source) Sensation of blocked ear; Translations: [Other specified disorders of right ear] Episodic Otitis media and related conditions (1 source) Acute suppurative otitis media without spontaneous rupture of ear drum; Translations: [Acute suppurative otitis media without spontaneous rupture of ear drum, left ear] Episodic Past or Other Problems Problem Classification Problem Date Documented Da te Episodic/Chronic Gastritis and duodenitis (7 sources) Acute gastritis; Translations: [Acute gastritis without bleeding] Onset: 09-21-2012 09-21-2012 Episodic Genitourinary symptoms and ill-defined conditions (4 sources) Scalding pain on urination ; Translations: [Dysuria] Onset: 03-30-2022 Episodic Other and unspecified benign neoplasm (7 sources) Benign neoplasm of colon; Translations: [Benign neoplasm of colon, unspecified] Onset: 04-08-2011 04-08-2011 Episodic Other non-traumatic joint disorders (7 sources) Arthralgia of the pelvic region and thigh; Translations: [Pain in unspecified hip] Onset: 11-14-2014 11-14-2014 Episodic Other screening for suspected conditions (not mental disorders or infectious disease) (7 sources) Patient encounter status; Translations: [Encounter for screening for malignant neoplasm of colon] Onset: 04-08-2011 04-08-2011 Episodic Results Test Name Value Interpretation Reference Range Facil ity Vital Signs Date Time Vital Sign Value Performing Clinician Dianna baker 09-14-2022 09:44-0500 Body temperature 96.6 [degF] Misael Hernandez MD Work Phone: [facility] 09-14-2022 09:44-0500 Body weight 69.13 kg Misael Hernandez MD Work Phone: [facility] 09-14-2022 09:44-0500 Diastolic blood pressure 84 mm[Hg] Misael Hernandez MD Work Phone: [facility] 09-14-2022 09:44-0500 Heart rate 82 /min Misael Hernandez MD Work Phone: [facility] 09-14-2022 09:44-0500 Respiratory rate 21 /min Misael Hernandez MD Work Phone: [facility] 09-14-2022 09:44-0500 SaO2% (BldA) [Mass fraction] 97 % Misael Hernandez MD Work Phone: [facility] 09-14-2022 09:44-0500 Systolic blood pressure 140 mm[Hg] Misael Hernandez MD Work Phone: [facility] 08-05-2022 14:01-0400 Body temperature 97.2 [degF] Jahaira Finch APRN.PUBLICITY MANAGER Work Phone: [facility] 08-05-2022 14:01-0400 Body weight 68.49 kg Jahaira Finch APRN.PUBLICITY MANAGER Work Phone: [facility] 08-05-2022 14:01-0400 Diastolic blood pressure 80 mm[Hg] Jahaira Finch APRN.PUBLICITY MANAGER Work Phone: [facility] 08-05-2022 14:01-0400 Heart rate 86 /min Jahaira Finch APRN.PUBLICITY MANAGER Work Phone: [facility] 08-05-2022 14:01-0400 Respiratory rate 16 /min Jahaira Finch APRN.PUBLICITY MANAGER Work Phone: [facility] 08-05-2022 14:01-0400 SaO2% (BldA) [Mass fraction] 97 % Jahaira Finch APRN.PUBLICITY MANAGER Work Phone: [facility] 08-05-2022 14:01-0400 Systolic blood pressure 140 mm[Hg] Jahaira Finch APRN.PUBLICITY MANAGER Work Phone: [facility] 03-30-2022 07:47-0400 Body temperature 96.91 [degF] Logan Barraza RESEARCH AND DEVELOPMENT DIRECTOR.PUBLICITY MANAGER Work Phone: [facility] 03-30-2022 07:47-0400 Body weight 68.95 kg Logan Barraza RESEARCH AND DEVELOPMENT DIRECTOR.PUBLICITY MANAGER Work Phone: [facility] 03-30-2022 07:47-0400 Diastolic blood pressure 62 mm[Hg] Logan Barraza RESEARCH AND DEVELOPMENT DIRECTOR.PUBLICITY MANAGER Work Phone: [facility] 03-30-2022 07:47-0400 Heart rate 72 /min Logan Barraza RESEARCH AND DEVELOPMENT DIRECTOR.PUBLICITY MANAGER Work Phone: [facility] 03-30-2022 07:47-0400 Respiratory rate 16 /min Logan Barraza RESEARCH AND DEVELOPMENT DIRECTOR.PUBLICITY MANAGER Work Phone: [facility] 03-30-2022 07:47-0400 SaO2% (BldA) [Mass fraction] 99 % Logan Barraza RESEARCH AND DEVELOPMENT DIRECTOR.PUBLICITY MANAGER Work Phone: [facility] 03-30-2022 07:47-0400 Systolic blood pressure 120 mm[Hg] Logan Barraza RESEARCH AND DEVELOPMENT DIRECTOR.PUBLICITY MANAGER Work Phone: [facility] 03-02-2022 08:02-0400 Body temperature 97.3 [degF] Misael Hernandez MD Work Phone: [facility] 03-02-2022 08:02-0400 Body weight 68.04 kg Misael Hernandez MD Work Phone: [facility] 03-02-2022 08:02-0400 Diastolic blood pressure 64 mm[Hg] Misael Hernandez MD Work Phone: [facility] 03-02-2022 08:02-0400 Heart rate 82 /min Misael Hernandez MD Work Phone: [facility] 03-02-2022 08:02-0400 Respiratory rate 16 /min Misael Hernandez MD Work Phone: [facility] 03-02-2022 08:02-0400 SaO2% (BldA) [Mass fraction] 98 % Misael Hernandez MD Work Phone: [facility] 03-02-2022 08:02-0400 Systolic blood pressure 110 mm[Hg] Misael Hernandez MD Work Phone: [facility] Encounters Encounter Date Encounter Type Care Provider Facility Start: 09-14-2022 End: 09-14-2022 ambulatory [facility] Facility:[facility] Start: 09-14-2022 End: 09-14-2022 Patient encounter procedure Misael Hernandez MD Work Phone: [facility] Procedures Date Procedure Procedure Detail Performing Clinician Start: 03-02-2022 Urnls dip stick/tabl et rgnt auto w/o microscopy Misael Hernandez MD Work Phone: Start: 09-06-2018 Adult depression screening assessment Misael Hernandez MD Work Phone: Plan of Treatment Date Care Activity Detail Author Start: 03-30-2025 DIABETES SCREEN DIABETES SCREEN [facility] Start: 01-10-2023 Urine microalbumin profile DTAP,TDAP,TD (2 - Td or Tdap) [facility] Start: 06-11-2022 Influenza vaccination [facility] Start: 05-24-2022 DIABETES SCREEN DIABETES SCREEN [facility] Start: 03-30-2022 End: 05-30-2022 Basic metabolic 2000 panel - Serum or Plasma [facility] Work Phone: Immunizations Immunization Date Immunization Notes Care Provider Angela beaulieu 08-26-2017 pneumococcal conjuga te vaccine, 13 valent Misael Hernandez MD Work Phone: [facility] 07-11-2017 influenza, high dose seasonal, preservative-free Misael Hernandez MD Work Phone: [facility] 08-24-2014 influenza, high dose seasonal, preservative-free Misael Hernandez MD Work Phone: [facility] 01-10-2013 tetanus toxoid, redu marie diphtheria toxoid, and acellular pertussis vaccine, adsorbed Misael Hernandez MD Work Phone: [facility] Work Phone: 08-26-2012 influenza virus vacc ine, unspecified formulation Misael Hernandez MD Work Phone: [facility] 02-10-2010 pneumococcal polysaccharide vaccine, 23 valent Misael Hernandez MD Work Phone: [facility] Payers Date Payer Category Payer Medicare [id number] 2020 Unknown MMO MMO MEDICARE SUPPLEMENT [id number] 2020-Present [phone] [address] [place] [address] Indemnity [id number] 2020 Unknown MMO MMO MEDICARE SUPPLEMENT [id number] 2020-Present [phone] [address] [place] [address] Indemnity [id number] 2006 Medicare MEDICARE MEDICAR E A AND B [id number] 2006-Present [phone] [place] [id number] Medicare [id number] 2006 Medicare MEDICARE MEDICAR E A AND B [id number] 2006-Present [phone] [place] [address] Medicare [id number] 2006 Medicare [id number] Social History Date Type Detail Facility Tobacco smoking stat [facility] Never smoked tobacco [facility] Work Phone: Start: 03-02-2022 End: 09-14-2022 Alcohol intake Current drinker of alcohol (finding) [facility] Start: 1940 Sex Assigned At Not on file C [facility] Start: 02-20-2022 End: 09-14-2022 Exposure to SARS-CoV-2 (event) Not sure [facility] Work Phone: Medical Equipment Procedure Code Equipment Code Equipment Origin al Text Equipment Identifier Dates Mesh Parietex 6. 6cm Small Collagen Surgical Patch [facility] - [id number] Start: 11-19-2021 Clinical Notes 10-20-2021 to 09-14-2022 Misael Hernandez MD - 09/14/2022 9:49 AM ESTPatient InstructionsJahaira Finch APRN.OMAIRA - 08/05/2022 2:12 PM EDTRileeloisa Castle Ma - 05/06/2022 12:02 PM EDTPatient Instructions Note Date & Type Note Facility 09-14-2022 Note HNO ID: [id number] Author: Misael Hernandez MD Service: ? Author Type: Physician Type: Progress Notes Filed: 09/14/2022 10:15 AM Note Text: Patient presents with: Ear Pain: Right ear problem x 1 day HPI: Feeling right ear popping and congestion since yesterday; reminds her of left ear symptoms treated as otitis media in July. She was evaluated in the [facility] ED 09/12/22 for vertigo and vomiting. Dizziness and nausea are significantly and progressively improving. Positive symptoms: Nausea, dizziness, ear pressure/popping, Negative symptoms: Cough, Sore throat, Nasal Congestion, Rhinorrhea, Fever, OTC: zofran, antivert, aleve Had CT and EKG in the ER 2 days ago. She had an episode of vertigo remotely and about 1 1/2 years ago. 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 Sobeida Valle [place]- PT Snoring Ventral hernia MEDICATIONS: Current Outpatient Medications Medication Sig ondansetron orally disintegrating (ZOFRAN ODT) 4 mg disintegrating tablet Take by mouth. meclizine (ANTIVERT) 25 mg tab Take 25 mg by mouth three times daily. VITAMIN C 1,000 mg tablet Take 1,000 mg by mouth daily at bedtime. conjugated estrogens (PREMARIN) vaginal cream insert 1 gram vaginally every week as directed AND SMALL PEA SIZED DAB EXTERNALLY ONCE WEEKLY MULTIVITAMIN ORAL Take by mouth. OTC PRODUCT [employer] with Lutein one daily OTC PRODUCT Parselenium E (Vitamin E 400 units and selenium 10 mcg) daily [id number] ORAL Take by mouth once daily. phenazopyridine (PYRIDIUM, GERIDIUM) 100 mg tablet Take 1 tablet by mouth three times daily as needed. (Patient not taking: No sig reported) No current facility-administered medications for this visit. ALLERGIES: ALLERGIES Allergen Reactions Seasonal Allergies Other: See Comments Sinus/Itching Eye's ect... VITALS: BP 140/84 Pulse 82 Temp (!) 35.9 ?C (96.6 ?F) Resp 21 Wt 69.1 kg (152 lb 6.4 oz) SpO2 97% BMI 28.80 kg/m? PHYSICAL EXAM: GEN: Pleasant, in no acute distress. HEENT: PERRL, EOMI, conjunctiva clear Ears: small distal cerumen removed right canal. TMs without erythema, bulge, or effusion Sinuses: non-tender frontal sinus, non-tender maxillary sinuses Throat: moist mucous membranes, no erythema, no exudate Neck: supple, no thyromegaly, no lymphadenopathy HEART: regular rate and rhythm, no murmurs LUNGS: clear to auscultation, no wheezes or crackles, no increased WOB ASSESSMENT/PLAN: 1. Congestion of right ear - ICD9: 388.8, ICD10: H93.8X1 (primary diagnosis) Reassured of benign exam today. 2. Vertigo - ICD9: 780.4, ICD10: R42 Reviewed symptom medicine use. Follow up with PCP or ENT. Misael Hernandez MD [facility] 09-14-2022 History of Present illness Narrative Patient presents with: Ear Pain: Right ear problem x 1 day HPI: Feeling right ear popping and congestion since yesterday; reminds her of left ear symptoms treated as otitis media in July. She was evaluated in the [facility] ED 09/12/22 for vertigo and vomiting. Dizziness and nausea are significantly and progressively improving. Positive symptoms: Nausea, dizziness, ear pressure/popping, Negative symptoms: Cough, Sore throat, Nasal Congestion, Rhinorrhea, Fever, OTC: zofran, antivert, rosina Had CT and EKG in the ER 2 days ago. She had an episode of vertigo remotely and about 1 1/2 years ago. 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 Sobeida Chun- PT Snoring Ventral hernia MEDICATIONS: Current Outpatient Medications Medication Sig ondansetron orally disintegrating (ZOFRAN ODT) 4 mg disintegrating tablet Take by mouth. meclizine (ANTIVERT) 25 mg tab Take 25 mg by mouth three times daily. VITAMIN C 1,000 mg tablet Take 1,000 mg by mouth daily at bedtime. conjugated estrogens (PREMARIN) vaginal cream insert 1 gram vaginally every week as directed AND SMALL PEA SIZED DAB EXTERNALLY ONCE WEEKLY MULTIVITAMIN ORAL Take by mouth. OTC PRODUCT [employer] [employer] with Lutein one daily OTC PRODUCT Parselenium E (Vitamin E 400 units and selenium 10 mcg) daily [id number] ORAL Take by mouth once daily. phenazopyridine (PYRIDIUM, GERIDIUM) 100 mg tablet Take 1 tablet by mouth three times daily as needed. (Patient not taking: No sig reported) No current facility-administered medications for this visit. ALLERGIES: ALLERGIES Allergen Reactions Seasonal Allergies Other: See Comments Sinus/Itching Eye's ect... VITALS: BP 140/84 Pulse 82 Temp (!) 35.9 C (96.6 F) Resp 21 Wt 69.1 kg (152 lb 6.4 oz) SpO2 97% BMI 28.80 kg/m PHYSICAL EXAM: GEN: Pleasant, in no acute distress. HEENT: PERRL, EOMI, conjunctiva clear Ears: small distal cerumen removed right canal. TMs without erythema, bulge, or effusion Sinuses: non-tender frontal sinus, non-tender maxillary sinuses Throat: moist mucous membranes, no erythema, no exudate Neck: supple, no thyromegaly, no lymphadenopathy HEART: regular rate and rhythm, no murmurs LUNGS: clear to auscultation, no wheezes or crackles, no increased WOB ASSESSMENT/PLAN: 1. Congestion of right ear - ICD9: 388.8, ICD10: H93.8X1 (primary diagnosis) Reassured of benign exam today. 2. Vertigo - ICD9: 780.4, ICD10: R42 Reviewed symptom medicine use. Follow up with PCP or ENT. Misael Hernandez MD documented in this encounter [facility] 08-05-2022 Note HNO ID: [id number] Author: Jahaira Finch APRN.PUBLICITY MANAGER Service: ? Author Type: Nurse Practitioner Type: Progress Notes Filed: 08/05/2022 2:16 PM Note Text: CC: Patient presents with: Ear Problem: Feels clogged, x 1 week Says she did have some congestion prior to the ears hurting. Patient says she leaves on a plane for a trip soon. HPI: Nancy Henriquez is a 82 year old female who presents to the office with complaint of respiratory symptoms and ear symptoms for a week. Symptoms are worsening Associated symptoms includes ear pain and ear pressure . Denies headache, body aches, fever, nausea, vomiting , and diarrhea. Treatments tried include nothing so far. with no relief of symptoms. Sick contacts: unknown. History of asthma, frequent episodes of bronchitis, chronic bronchitis, bronchiectasis or COPD: No Smoker: No Seasonal/environmental allergies: No The ROS is otherwise negative. The patient's pmh, medications, allergies, and past visits are reviewed. PHYSICAL EXAM: BP 140/80 Pulse 86 Temp 36.2 ?C (97.2 ?F) Resp 16 Wt 68.5 kg (151 lb) SpO2 97% BMI 28.53 kg/m? General appearance: alert, cooperative, pleasant, in no acute distress Head: Normocephalic Eyes: EOM's intact, conjunctiva pink and moist, no icterus, sclera white, non-injected Ears: Right ear: External ear/canal- Normal, TM - clear with good landmarks. Left ear: External ear/canal- Normal, TM - erythematous Oropharynx:moist without lesions, No erythema, exudates or tonsillar hypertrophy. Heart: Negative. RRR without obvious murmur, gallop, or rubs. No ectopy. 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 Sobeida Valle [place]- PT Snoring Ventral hernia PAST SURGICAL HISTORY Procedure Laterality Date APPENDECTOMY 1989 CATARACT EXTRACTION HX Right 08/2018 Dr. Hines COLONOSCOPY FLX DX W/COLLJ SPEC WHEN PFRMD 04/08/2015 Repeat 2024 COLSC FLX W/RMVL OF TUMOR POLYP LESION SNARE TQ 04/08/2011 ESOPHAGOGASTRODUODENOSCOPY TRANSORAL DIAGNOSTIC EGD LIG/TRNSXJ FLP TUBE ABDL/VAG APPR UNI/BI Tubal ligation LITHOTRIPSY / 1 SIDE 2019 OPEN REPAIR OF ROTATOR CUFF ACUTE Rotator cuff repair/Left shoulder REPAIR UMBILICAL HERNIA 11/19/2021 ALLERGIES Seasonal Allergies MEDICATIONS VITAMIN C 1,000 mg tablet Take 1,000 mg by mouth daily at bedtime. conjugated estrogens (PREMARIN) vaginal cream insert 1 gram vaginally every week as directed AND SMALL PEA SIZED DAB EXTERNALLY ONCE WEEKLY MULTIVITAMIN ORAL Take by mouth. OTC PRODUCT [employer] with Lutein one daily OTC PRODUCT Parselenium E (Vitamin E 400 units and selenium 10 mcg) daily [id number] ORAL Take by mouth once daily. amoxicillin (AMOXIL) 875 mg tablet Take 1 tablet by mouth twice daily for 7 days. phenazopyridine (PYRIDIUM, GERIDIUM) 100 mg tablet Take 1 tablet by mouth three times daily as needed. (Patient not taking: No sig reported) FAMILY HISTORY Problem Relation Age of Onset other (ALS) Mother Stroke Father Cancer Father Prostate other (heart problems) Father Cancer Maternal Grandfather Heart Brother arrythmia Social History Tobacco Use Smoking status: Never Smokeless tobacco: Never Vaping Use Vaping Use: Never used Substance Use Topics Alcohol use: Yes Comment: seldom Drug use: No ASSESSMENT/PLAN: 1. Non-recurrent acute suppurative otitis media of left ear without spontaneous rupture of tympanic membrane - ICD9: 382.00, ICD10: H66.002 Amoxicillin twice a day for 7 days. Prescription instructions reviewed with patient as applicable. Potential red flag symptoms discussed with the patient. Reviewed appropriate action plan to take if red flag symptoms occur. Patient agreeable to treatment plan. Jahaira Finch APRN.CNP [facility] 08-05-2022 Instructions Jahaira Finch APRN.OMAIRA - 08/05/2022 2:13 PM EDT Ear Infection The inside or outside of your ear can become infected. If your outer ear or ear canal is swollen and infected, you have an outer ear infection. Your ear may itch or be red and swollen. Your ear may hurt or have drainage as well. This infection happens if germs enter your ears and cause a problem. This is more likely to happen if you have a wound in your ear. It can also happen if there is something in your ear or if your ear is wet for a long time. You may have signs a few days after swimming. This is why outer ear infections are often called swimmers ear. Long-term outer ear infections may be caused by: Allergic reaction Skin problems, such as eczema or psoriasis Chronic middle ear infections What care is needed at home? Ask your doctor what you need to do when you go home. Make sure you ask questions if you do not understand what the doctor says. This way you will know what you need to do. Take your drugs as ordered by your doctor. Be sure to treat an infection right away. This will help to keep it from spreading to other parts of your ear. Heat may help ease your ear pain. If your doctor tells you to use heat, put a heating pad or hot water bottle on your ear for no more than 20 minutes at a time. Never go to sleep with a heating pad on as this can cause larson. What follow-up care is needed? Your doctor may ask you to make visits to the office to check on your progress. Be sure to keep these visits. What problems could happen? Very bad infection Hearing problems What can be done to prevent this health problem? Keep your ears dry: Use a bathing cap or ear plugs when swimming. Use a towel to dry your ears when they are wet. Do not swim in dirty or polluted water. Avoid getting soap or other items in your ears. Do not scratch your ears. Do not put swabs or other objects in your ears. When do I need to call the doctor? Signs of infection. These include a fever of 100.4 F (38 C) or higher, chills, very bad sore throat, ear or sinus pain. Signs get worse You feel pain and there is redness of the bone behind your ear Drugs you are taking are not working for you Health problem is not better or you are feeling worse Helpful tips Talk to your doctor to see if there are drops you can use to help prevent the growth of germs. Outer ear infections are not contagious, but need treatment. documented in this encounter [facility] 08-05-2022 History of Present illness Narrative CC: Patient presents with: Ear Problem: Feels clogged, x 1 week Says she did have some congestion prior to the ears hurting. Patient says she leaves on a plane for a trip soon. HPI: Nancy Henriquez is a 82 year old female who presents to the office with complaint of respiratory symptoms and ear symptoms for a week. Symptoms are worsening Associated symptoms includes ear pain and ear pressure . Denies headache, body aches, fever, nausea, vomiting , and diarrhea. Treatments tried include nothing so far. with no relief of symptoms. Sick contacts: unknown. History of asthma, frequent episodes of bronchitis, chronic bronchitis, bronchiectasis or COPD: No Smoker: No Seasonal/environmental allergies: No The ROS is otherwise negative. The patient's pmh, medications, allergies, and past visits are reviewed. PHYSICAL EXAM: BP 140/80 Pulse 86 Temp 36.2 C (97.2 F) Resp 16 Wt 68.5 kg (151 lb) SpO2 97% BMI 28.53 kg/m General appearance: alert, cooperative, pleasant, in no acute distress Head: Normocephalic Eyes: EOM's intact, conjunctiva pink and moist, no icterus, sclera white, non-injected Ears: Right ear: External ear/canal- Normal, TM - clear with good landmarks. Left ear: External ear/canal- Normal, TM - erythematous Oropharynx:moist without lesions, No erythema, exudates or tonsillar hypertrophy. Heart: Negative. RRR without obvious murmur, gallop, or rubs. No ectopy. 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 Sobeida Chun- PT Snoring Ventral hernia PAST SURGICAL HISTORY Procedure Laterality Date APPENDECTOMY 1989 CATARACT EXTRACTION HX Right 08/2018 Dr. Hines COLONOSCOPY FLX DX W/COLLJ SPEC WHEN PFRMD 04/08/2015 Repeat 2024 COLSC FLX W/RMVL OF TUMOR POLYP LESION SNARE TQ 04/08/2011 ESOPHAGOGASTRODUODENOSCOPY TRANSORAL DIAGNOSTIC EGD LIG/TRNSXJ FLP TUBE ABDL/VAG APPR UNI/BI Tubal ligation LITHOTRIPSY / 1 SIDE 2019 OPEN REPAIR OF ROTATOR CUFF ACUTE Rotator cuff repair/Left shoulder REPAIR UMBILICAL HERNIA 11/19/2021 ALLERGIES Seasonal Allergies MEDICATIONS VITAMIN C 1,000 mg tablet Take 1,000 mg by mouth daily at bedtime. conjugated estrogens (PREMARIN) vaginal cream insert 1 gram vaginally every week as directed AND SMALL PEA SIZED DAB EXTERNALLY ONCE WEEKLY MULTIVITAMIN ORAL Take by mouth. OTC PRODUCT [employer] with Lutein one daily OTC PRODUCT Parselenium E (Vitamin E 400 units and selenium 10 mcg) daily [id number] ORAL Take by mouth once daily. amoxicillin (AMOXIL) 875 mg tablet Take 1 tablet by mouth twice daily for 7 days. phenazopyridine (PYRIDIUM, GERIDIUM) 100 mg tablet Take 1 tablet by mouth three times daily as needed. (Patient not taking: No sig reported) FAMILY HISTORY Problem Relation Age of Onset other (ALS) Mother Stroke Father Cancer Father Prostate other (heart problems) Father Cancer Maternal Grandfather Heart Brother arrythmia Social History Tobacco Use Smoking status: Never Smokeless tobacco: Never Vaping Use Vaping Use: Never used Substance Use Topics Alcohol use: Yes Comment: seldom Drug use: No ASSESSMENT/PLAN: 1. Non-recurrent acute suppurative otitis media of left ear without spontaneous rupture of tympanic membrane - ICD9: 382.00, ICD10: H66.002 Amoxicillin twice a day for 7 days. Prescription instructions reviewed with patient as applicable. Potential red flag symptoms discussed with the patient. Reviewed appropriate action plan to take if red flag symptoms occur. Patient agreeable to treatment plan. Jahaira Finch APRN.OMAIRA documented in this encounter [facility] 05-06-2022 Note HNO ID: [id number] Author: Jadyn Castle Ma Service: ? Author Type: ? Type: Progress Notes Filed: 05/14/2022 5:04 PM Note Text: View External Imaging - CT Scan [ID [id number]] [facility] CT Abd/pelvis Josise Castillo Ma XR Abdomen. View External Imaging - X-ray [ID [id number]] [facility] 05-06-2022 History of Present illness Narrative View External Imaging - CT Scan [ID [id number]] [facility] CT Abd/pelvis Jossie Pizarrojesus Garcia XR Abdomen. View External Imaging - X-ray [ID [id number]] documented in this encounter [facility] 04-02-2022 Miscellaneous Notes Phone call placed patient advised (see prior provider encounter) Patient verbalized understanding, agreed with plan of care. Nereida Ruffin LPN Please inform patient that urine culture did not show any growth of bacteria requiring treatment. If symptoms improving complete antibiotic Advise due to blood in the urine that she follow up with PCP for recheck of urine in 1-2 weeks. Yessy Morrow APRN.CNP documented in this encounter [facility] 03-30-2022 Miscellaneous Notes Patient given results and verbalized understanding of instructions given. Sarah Qureshi Please notify that bmp normal. Continue with plan as discussed during visit. documented in this encounter [facility] 03-30-2022 Note HNO ID: [id number] Author: Logan Barraza APRN.CNP Service: ? Author Type: Nurse Practitioner Type: Progress Notes Filed: 03/30/2022 8:24 AM Note Text: Subjective HPI HPI Nancy Henriquez is a 81 year old female who presents today for CC of urinary urgency, frequency, burning. This started 1 day ago. Has tried azo for relief. Symptoms are worsened by nothing. Risk factors hx of 2 recent uti's. .Patient presents with: Urinary Frequency: burning with urination x 1 day PAST MEDICAL HISTORY Diagnosis Date - Acute gastritis without mention of hemorrhage - Benign neoplasm of colon - Dyskinesia of esophagus - osteoporosis - Personal history of colonic polyps 04/08/2015 - Renal calculus - Shoulder problem Sees Dr. Sobeida Chun- PT - Snoring - Ventral hernia PAST SURGICAL HISTORY Procedure Laterality Date - APPENDECTOMY 1989 - CATARACT EXTRACTION HX Right 08/2018 Dr. Hines - COLONOSCOPY FLX DX W/COLLJ SPEC WHEN PFRMD 04/08/2015 Repeat 2024 - COLSC FLX W/RMVL OF TUMOR POLYP LESION SNARE TQ 04/08/2011 - ESOPHAGOGASTRODUODENOSCOPY TRANSORAL DIAGNOSTIC EGD - LIG/TRNSXJ FLP TUBE ABDL/VAG APPR UNI/BI Tubal ligation - LITHOTRIPSY / 1 SIDE 2018 - OPEN REPAIR OF ROTATOR CUFF ACUTE Rotator cuff repair/Left shoulder - REPAIR UMBILICAL HERNIA 11/19/2021 Ric ALLERGIES Seasonal Allergies MEDICATIONS conjugated estrogens (PREMARIN) vaginal cream insert 1 gram vaginally every week as directed AND SMALL PEA SIZED DAB EXTERNALLY ONCE WEEKLY MULTIVITAMIN ORAL Take by mouth. OTC PRODUCT [employer] with Lutein one daily OTC PRODUCT Parselenium E (Vitamin E 400 units and selenium 10 mcg) daily [id number] ORAL Take by mouth once daily. cephALEXin (KEFLEX) 500 mg capsule Take 1 capsule by mouth twice daily for 10 days. phenazopyridine (PYRIDIUM, GERIDIUM) 100 mg tablet Take 1 tablet by mouth three times daily as needed. FAMILY HISTORY Problem Relation Age of Onset - other (ALS) Mother - Stroke Father - Cancer Father Prostate - other (heart problems) Father - Cancer Maternal Grandfather - Heart Brother arrythmia Social History Tobacco Use - Smoking status: Never Smoker - Smokeless tobacco: Never Used Vaping Use - Vaping Use: Never used Substance Use Topics - Alcohol use: Yes Comment: seldom - Drug use: No Review of Systems Constitutional: Negative for chills, fever and weight loss. Respiratory: Negative for cough, shortness of breath and wheezing. Cardiovascular: Negative for chest pain and palpitations. Gastrointestinal: Negative for abdominal pain, blood in stool, constipation, diarrhea, heartburn, melena, nausea and vomiting. Genitourinary: Positive for dysuria, frequency and urgency. Negative for flank pain and hematuria. Objective Blood pressure 120/62, pulse 72, temperature 36.1 ?C (96.9 ?F), resp. rate 16, weight 68.9 kg (152 lb), SpO2 99 %. BMP Latest Ref Rng AND Units 05/24/2019 09/06/2018 09/10/2017 GLUCOSE 74 - 99 mg/dL 93 98 88 BUN 7 - 21 mg/dL 13 22(H) 15 CREATININE 0.58 - 0.96 mg/dL 0.70 0.76 0.73 SODIUM 136 - 144 mmol/L 140 142 141 POTASSIUM 3.7 - 5.1 mmol/L 4.4 3.9 4.0 CHLORIDE 97 - 105 mmol/L 104 103 102 CO2 22 - 30 mmol/L 27 26 27 ANION GAP 9 - 18 mmol/L 9 13 12 CALCIUM, TOTAL 8.5 - 10.2 mg/dL 8.9 9.5 9.0 eGFR . >60 >60 >60 EGFR- - >60 >60 >60 EGFR-ALL OTHER RACES . >60 >60 >60 Physical Exam Constitutional: General: She is not in acute distress. Appearance: Normal appearance. She is not toxic-appearing. Cardiovascular: Rate and Rhythm: Normal rate and regular rhythm. Heart sounds: Normal heart sounds. Pulmonary: Effort: Pulmonary effort is normal. Breath sounds: Normal breath sounds. Abdominal: General: Bowel sounds are normal. Palpations: Abdomen is soft. Tenderness: There is no abdominal tenderness. Skin: General: Skin is warm and dry. ASSESSMENT/PLAN: 1. Urinary frequency - ICD9: 788.41, ICD10: R35.0 (primary diagnosis) Acute No recent renal labs, will check bmp -ua obscured by azo. - Send urine for culture - Begin treatment with cephalexin for 10 days - Patient education for prevention given This would be 3rd uti in short period, we discussed if this culture pos and patient has 1 more will need referral to urology. - UA DIP, URINE (POC) - URINE CULTURE - BASIC METABOLIC PNL - CEPHALEXIN 500 MG CAPSULE 2. Burning with urination - ICD9: 788.1, ICD10: R30.0 As above - UA DIP, URINE (POC) - URINE CULTURE - CEPHALEXIN 500 MG CAPSULE Agrees to plan Logan Barraza APRN.OMAIRA [facility] 03-30-2022 History of Present illness Narrative Subjective HPI HPI Nancy Henriquez is a 81 year old female who presents today for CC of urinary urgency, frequency, burning. This started 1 day ago. Has tried azo for relief. Symptoms are worsened by nothing. Risk factors hx of 2 recent uti's. 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 Sobeida Chun- PT Snoring Ventral hernia PAST SURGICAL HISTORY Procedure Laterality Date APPENDECTOMY 1989 CATARACT EXTRACTION HX Right 08/2018 Dr. Hines COLONOSCOPY FLX DX W/COLLJ SPEC WHEN PFRMD 04/08/2015 Repeat 2024 COLSC FLX W/RMVL OF TUMOR POLYP LESION SNARE TQ 04/08/2011 ESOPHAGOGASTRODUODENOSCOPY TRANSORAL DIAGNOSTIC EGD LIG/TRNSXJ FLP TUBE ABDL/VAG APPR UNI/BI Tubal ligation LITHOTRIPSY / 1 SIDE 2019 OPEN REPAIR OF ROTATOR CUFF ACUTE Rotator cuff repair/Left shoulder REPAIR UMBILICAL HERNIA 11/19/2021 ALLERGIES Seasonal Allergies MEDICATIONS conjugated estrogens (PREMARIN) vaginal cream insert 1 gram vaginally every week as directed AND SMALL PEA SIZED DAB EXTERNALLY ONCE WEEKLY MULTIVITAMIN ORAL Take by mouth. OTC PRODUCT [employer] with Lutein one daily OTC PRODUCT Parselenium E (Vitamin E 400 units and selenium 10 mcg) daily [id number] ORAL Take by mouth once daily. cephALEXin (KEFLEX) 500 mg capsule Take 1 capsule by mouth twice daily for 10 days. phenazopyridine (PYRIDIUM, GERIDIUM) 100 mg tablet Take 1 tablet by mouth three times daily as needed. FAMILY HISTORY Problem Relation Age of Onset other (ALS) Mother Stroke Father Cancer Father Prostate other (heart problems) Father Cancer Maternal Grandfather Heart Brother arrythmia Social History Tobacco Use Smoking status: Never Smoker Smokeless tobacco: Never Used Vaping Use Vaping Use: Never used Substance Use Topics Alcohol use: Yes Comment: seldom Drug use: No Review of Systems Constitutional: Negative for chills, fever and weight loss. Respiratory: Negative for cough, shortness of breath and wheezing. Cardiovascular: Negative for chest pain and palpitations. Gastrointestinal: Negative for abdominal pain, blood in stool, constipation, diarrhea, heartburn, melena, nausea and vomiting. Genitourinary: Positive for dysuria, frequency and urgency. Negative for flank pain and hematuria. Objective Blood pressure 120/62, pulse 72, temperature 36.1 C (96.9 F), resp. rate 16, weight 68.9 kg (152 lb), SpO2 99 %. BMP Latest Ref Rng & Units 05/24/2019 09/06/2018 09/10/2017 GLUCOSE 74 - 99 mg/dL 93 98 88 BUN 7 - 21 mg/dL 13 22(H) 15 CREATININE 0.58 - 0.96 mg/dL 0.70 0.76 0.73 SODIUM 136 - 144 mmol/L 140 142 141 POTASSIUM 3.7 - 5.1 mmol/L 4.4 3.9 4.0 CHLORIDE 97 - 105 mmol/L 104 103 102 CO2 22 - 30 mmol/L 27 26 27 ANION GAP 9 - 18 mmol/L 9 13 12 CALCIUM, TOTAL 8.5 - 10.2 mg/dL 8.9 9.5 9.0 eGFR . >60 >60 >60 EGFR- - >60 >60 >60 EGFR-ALL OTHER RACES . >60 >60 >60 Physical Exam Constitutional: General: She is not in acute distress. Appearance: Normal appearance. She is not toxic-appearing. Cardiovascular: Rate and Rhythm: Normal rate and regular rhythm. Heart sounds: Normal heart sounds. Pulmonary: Effort: Pulmonary effort is normal. Breath sounds: Normal breath sounds. Abdominal: General: Bowel sounds are normal. Palpations: Abdomen is soft. Tenderness: There is no abdominal tenderness. Skin: General: Skin is warm and dry. ASSESSMENT/PLAN: 1. Urinary frequency - ICD9: 788.41, ICD10: R35.0 (primary diagnosis) Acute No recent renal labs, will check bmp -ua obscured by azo. - Send urine for culture - Begin treatment with cephalexin for 10 days - Patient education for prevention given This would be 3rd uti in short period, we discussed if this culture pos and patient has 1 more will need referral to urology. - UA DIP, URINE (POC) - URINE CULTURE - BASIC METABOLIC PNL - CEPHALEXIN 500 MG CAPSULE 2. Burning with urination - ICD9: 788.1, ICD10: R30.0 As above - UA DIP, URINE (POC) - URINE CULTURE - CEPHALEXIN 500 MG CAPSULE Agrees to plan Logan Barraza APRN.CNP documented in this encounter [facility] 03-30-2022 Instructions Logan Barraza APRN.OMAIRA - 03/30/2022 8:15 AM EDT URINARY TRACT INFECTION GENERAL INFORMATION: A urinary tract infection (UTI) is an infection of the bladder or kidneys. A bladder infection, called cystitis, is the more common type. If the infection travels up to the kidneys, it is called pyelonephritis. This can be more serious. UTIs are a common problem in women. Having sexual relations can leave a woman more susceptible to developing a UTI, but it is not sexually transmitted like gonorrhea. Some women have a problem with recurrent UTIs. INSTRUCTIONS: 1. Your doctor prescribed an antibiotic to treat the UTI. Take exactly as directed. Be sure to take all the medication prescribed, even if your symptoms disappear. If you stop treatment early, the infection may not be fully treated and the symptoms could come back again. 2. Get plenty of rest. You may take acetaminophen for fever and aches. 3. Drink 6 to 8 glasses of fluids, especially water, every day. This helps wash out germs from your urinary tract. Cranberry juice or other sources of vitamin C are also good for you. 4. Urinate often, as soon as you feel the urge. Empty your bladder completely. Urinate before and after you have sex. 5. Always wipe from front to back after going to the bathroom. This pushes germs away from your bladder, rather than towards it. 6. Showers are better than baths, and you should wash the genital area daily. Avoid bubble bath or bath oils if you do take a bath. 7. Wear underwear and pantyhose with a cotton crotch. CONTACT YOUR DOCTOR: 1. You have a temperature over 102F (38.8C) after 48 hours on medication. 2. You notice blood in your urine. 3. Your symptoms don't improve in 2 days. 4. You develop nausea, vomiting, diarrhea, or a rash. 5. You develop new or unexplained symptoms. These may be related to the medication you are taking. 6. Your symptoms return after you finish treatment. RETURN TO THE EMERGENCY DEPARTMENT IF: You develop vomiting and can't keep your medication or fluids down. documented in this encounter [facility] 03-02-2022 Note HNO ID: [id number] Author: Misael Hernandez MD Service: ? Author Type: Physician Type: Progress Notes Filed: 03/02/2022 8:32 AM Note Text: Patient presents with: Urinary Problem: burning with urination x 1 day, taking azo HPI: Symptoms for 2-3 days. Dysuria: Yes Frequency: Yes Hematuria: No Nausea: No Fever or chills: No Back pain: No Abdominal pain: No Prior UTI: Yes Prior kidney stone: Yes PAST MEDICAL HISTORY Diagnosis Date - Acute gastritis without mention of hemorrhage - Benign neoplasm of colon - Dyskinesia of esophagus - osteoporosis - Personal history of colonic polyps 04/08/2015 - Renal calculus - Shoulder problem Sees Dr. Sobeida Chun- PT - Snoring - Ventral hernia PAST SURGICAL HISTORY Procedure Laterality Date - APPENDECTOMY 1989 - CATARACT EXTRACTION HX Right 08/2018 Dr. Hines - COLONOSCOPY FLX DX W/COLLJ SPEC WHEN PFRMD 04/08/2015 Repeat 2024 - COLSC FLX W/RMVL OF TUMOR POLYP LESION SNARE TQ 04/08/2011 - ESOPHAGOGASTRODUODENOSCOPY TRANSORAL DIAGNOSTIC EGD - LIG/TRNSXJ FLP TUBE ABDL/VAG APPR UNI/BI Tubal ligation - LITHOTRIPSY / 1 SIDE 2019 - OPEN REPAIR OF ROTATOR CUFF ACUTE Rotator cuff repair/Left shoulder - REPAIR UMBILICAL HERNIA 11/19/2021 MEDICATIONS: Current Outpatient Medications Medication Sig - conjugated estrogens (PREMARIN) vaginal cream insert 1 gram vaginally every week as directed AND SMALL PEA SIZED DAB EXTERNALLY ONCE WEEKLY - MULTIVITAMIN ORAL Take by mouth. - OTC PRODUCT [email or web address] with Lutein one daily - OTC PRODUCT Parselenium E (Vitamin E 400 units and selenium 10 mcg) daily - [id number] ORAL Take by mouth once daily. - phenazopyridine (PYRIDIUM, GERIDIUM) 100 mg tablet Take 1 tablet by mouth three times daily as needed. (Patient not taking: Reported on 03/02/2022 ) No current facility-administered medications for this visit. ALLERGIES: ALLERGIES Allergen Reactions - Seasonal Allergies Other: See Comments Sinus/Itching Eye's ect... VITALS: BP 110/64 Pulse 82 Temp 36.3 ?C (97.3 ?F) Resp 16 Wt 68 kg (150 lb) SpO2 98% BMI 28.34 kg/m? PHYSICAL EXAM: GEN: NAD HEENT: EOMI, conjunctiva clear, moist mucous membranes HEART: regular rate and rhythm, no murmurs LUNGS: clear to auscultation, no wheezes or crackles, no increased WOB ABDOMEN: Declined due to hernia surgery in November BACK: No CVA tenderness ASSESSMENT/PLAN: 1. Burning with urination - ICD9: 788.1, ICD10: R30.0 - UA with multiple unreliable positives because of AZO discoloration. - Send urine for culture - UA DIP, URINE (POC) - NITROFURANTOIN MONOHYDRATE AND MACROCRYSTAL 100 MG ORAL CAP - URINE CULTURE Discussed recurrent UTIs. She gets them regularly while traveling. She may consider consult with urogyn, urology, or PCP to discuss prophylactic treatment for trips. Misael Hernandez MD [facility] 03-02-2022 History of Present illness Narrative Patient presents with: Urinary Problem: burning with urination x 1 day, taking azo HPI: Symptoms for 2-3 days. 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 Sobeida Chun- PT Snoring Ventral hernia PAST SURGICAL HISTORY Procedure Laterality Date APPENDECTOMY 1990 CATARACT EXTRACTION HX Right 08/2018 Dr. Hines COLONOSCOPY FLX DX W/COLLJ SPEC WHEN PFRMD 04/08/2015 Repeat 2024 COLSC FLX W/RMVL OF TUMOR POLYP LESION SNARE TQ 04/08/2011 ESOPHAGOGASTRODUODENOSCOPY TRANSORAL DIAGNOSTIC EGD LIG/TRNSXJ FLP TUBE ABDL/VAG APPR UNI/BI Tubal ligation LITHOTRIPSY / 1 SIDE 2019 OPEN REPAIR OF ROTATOR CUFF ACUTE Rotator cuff repair/Left shoulder REPAIR UMBILICAL HERNIA 11/19/2021 MEDICATIONS: Current Outpatient Medications Medication Sig conjugated estrogens (PREMARIN) vaginal cream insert 1 gram vaginally every week as directed AND SMALL PEA SIZED DAB EXTERNALLY ONCE WEEKLY MULTIVITAMIN ORAL Take by mouth. OTC PRODUCT [employer] with Lutein one daily OTC PRODUCT Parselenium E (Vitamin E 400 units and selenium 10 mcg) daily [id number] ORAL Take by mouth once daily. phenazopyridine (PYRIDIUM, GERIDIUM) 100 mg tablet Take 1 tablet by mouth three times daily as needed. (Patient not taking: Reported on 03/02/2022 ) No current facility-administered medications for this visit. ALLERGIES: ALLERGIES Allergen Reactions Seasonal Allergies Other: See Comments Sinus/Itching Eye's ect... VITALS: BP 110/64 Pulse 82 Temp 36.3 C (97.3 F) Resp 16 Wt 68 kg (150 lb) SpO2 98% BMI 28.34 kg/m PHYSICAL EXAM: GEN: NAD HEENT: EOMI, conjunctiva clear, moist mucous membranes HEART: regular rate and rhythm, no murmurs LUNGS: clear to auscultation, no wheezes or crackles, no increased WOB ABDOMEN: Declined due to hernia surgery in November BACK: No CVA tenderness ASSESSMENT/PLAN: 1. Burning with urination - ICD9: 788.1, ICD10: R30.0 - UA with multiple unreliable positives because of AZO discoloration. - Send urine for culture - UA DIP, URINE (POC) - NITROFURANTOIN MONOHYDRATE & MACROCRYSTAL 100 MG ORAL CAP - URINE CULTURE Discussed recurrent UTIs. She gets them regularly while traveling. She may consider consult with urogyn, urology, or PCP to discuss prophylactic treatment for trips. Misael Hernandez MD documented in this encounter [facility] 12-31-2021 Note HNO ID: [id number] Author: Anne Pelayo PA-C Service: ? Author Type: Physician Basket Maker Type: Progress Notes Filed: 12/31/2021 7:15 PM Note Text: This note was created using [employer]. Subjective Nancy Henriquez is a 81 year old female. HPI Patient presents with dysuria and frequency worsening since yesterday. She has hx of recurrent uti. She was here yesterday and culture shows 100,000 ecoli but sensitivity not back. No fever or chills. She states she thought she was getting better yesterday after 2 doses of bactrim but today has taken a third and all of her symptoms worsened. She has not had bactrim previously that she can recall. No nv. She has pyridium but has not taken it yet. Review of Systems HENT: Negative. Respiratory: Negative. Cardiovascular: Negative. Gastrointestinal: Negative. Genitourinary: Positive for dysuria, frequency and urgency. Negative for flank pain and hematuria. Musculoskeletal: Negative. All other systems reviewed and are negative. PAST MEDICAL HISTORY Diagnosis Date - Acute gastritis without mention of hemorrhage - Benign neoplasm of colon - Dyskinesia of esophagus - osteoporosis - Personal history of colonic polyps 04/08/2015 - Renal calculus - Shoulder problem Sees Dr. Sobeida Chun- PT - Snoring - Ventral hernia Current Outpatient Medications Medication Sig Dispense Refill - sulfamethoxazole-trimethoprim (BACTRIM DS) 800-160 mg per tablet Take 1 tablet by mouth twice daily for 3 days. 6 tablet 0 - conjugated estrogens (PREMARIN) vaginal cream insert 1 gram vaginally every week as directed AND SMALL PEA SIZED DAB EXTERNALLY ONCE WEEKLY 30 g 2 - MULTIVITAMIN ORAL Take by mouth. - OTC PRODUCT [employer] with Lutein one daily - OTC PRODUCT Parselenium E (Vitamin E 400 units and selenium 10 mcg) daily - [id number] ORAL Take by mouth once daily. - nitrofurantoin monohydrate and macrocrystal (MACROBID) 100 mg capsule Take 1 capsule by mouth twice daily with meals for 7 days. 14 capsule 0 - phenazopyridine (PYRIDIUM, GERIDIUM) 100 mg tablet Take 1 tablet by mouth three times daily as needed. (Patient taking differently: Take 100 mg by mouth three times daily as needed. PRN for UTI ) 6 tablet 0 No current facility-administered medications for this visit. PAST SURGICAL HISTORY Procedure Laterality Date - APPENDECTOMY 1989 - CATARACT EXTRACTION HX Right 08/2018 Dr. Hines - COLONOSCOPY FLX DX W/COLLJ SPEC WHEN PFRMD 04/08/2015 Repeat 2024 - COLSC FLX W/RMVL OF TUMOR POLYP LESION SNARE TQ 04/08/2011 - ESOPHAGOGASTRODUODENOSCOPY TRANSORAL DIAGNOSTIC EGD - LIG/TRNSXJ FLP TUBE ABDL/VAG APPR UNI/BI Tubal ligation - LITHOTRIPSY / 1 SIDE 2019 - OPEN REPAIR OF ROTATOR CUFF ACUTE Rotator cuff repair/Left shoulder - REPAIR UMBILICAL HERNIA 11/19/2021 FAMILY HISTORY Problem Relation Age of Onset - other (ALS) Mother - Stroke Father - Cancer Father Prostate - other (heart problems) Father - Cancer Maternal Grandfather - Heart Brother arrythmia Social History Tobacco Use - Smoking status: Never Smoker - Smokeless tobacco: Never Used Vaping Use - Vaping Use: Never used Substance Use Topics - Alcohol use: Yes Comment: seldom - Drug use: No Objective BP 126/82 Pulse 82 Temp 36.5 ?C (97.7 ?F) (Tympanic) Resp 18 Wt 68.9 kg (151 lb 12.8 oz) SpO2 100% BMI 28.68 kg/m? Physical Exam Vitals reviewed. Constitutional: Appearance: Normal appearance. HENT: Head: Normocephalic and atraumatic. Abdominal: General: Abdomen is flat. Palpations: Abdomen is soft. Tenderness: There is no right CVA tenderness or left CVA tenderness. Skin: General: Skin is warm. Neurological: Mental Status: She is alert. Assessment and Plan ASSESSMENT/PLAN: 1. Dysuria - ICD9: 788.1, ICD10: R30.0 I discussed trying pyridium until the sensitivity is back- patient insists on changing antibiotic today. I switched bactrim to macrobid- will call her on results once sensitivity is back. Red flags discussed. Patient agreeable with plan. Anne Pelayo PA-C [facility] 12-30-2021 Note HNO ID: [id number] Author: Yessy Morrow APRN.PUBLICITY MANAGER Service: ? Author Type: Nurse Practitioner Type: Progress Notes Filed: 12/30/2021 8:42 AM Note Text: Subjective HPI HPI [place] F Shirer is a 81 year old female who presents today for CC of burning and frequecny for 2 days. Positive for Dysuria, Increase in frequency of urination and Urgency, Negative for Sense of incomplete void, Fevers, Vomiting, Diarrhea, Abdominal pain , Back/Flank pain, Blood in urine and Vaginal itch or discharge Chance of : No Last intercourse: n/a, post menopausal Any self-treatment attempted: Yes Number of previous UTI's in last 6 months:0 Number of previous UTI's in last 12 months: 0 Aggravating Factors: voiding Alleviating Factors include AZO with minimal relief in symptoms. BP 144/84 Pulse 71 Temp 36.1 ?C (97 ?F) (Tympanic) Resp 18 Wt 68.3 kg (150 lb 9.6 oz) SpO2 99% BMI 28.46 kg/m? Social History Tobacco Use - Smoking status: Never Smoker - Smokeless tobacco: Never Used Vaping Use - Vaping Use: Never used Substance Use Topics - Alcohol use: Yes Comment: seldom - Drug use: No PAST MEDICAL HISTORY Diagnosis Date - Acute gastritis without mention of hemorrhage - Benign neoplasm of colon - Dyskinesia of esophagus - osteoporosis - Personal history of colonic polyps 04/08/2015 - Renal calculus - Shoulder problem Sees Dr. Sobeida Chnu- PT - Snoring - Ventral hernia I have confirmed and edited as necessary, the [facility] Review of Systems Constitutional: Negative for chills and fever. Gastrointestinal: Negative for abdominal pain, diarrhea, nausea and vomiting. Genitourinary: Positive for dysuria, frequency and urgency. Negative for flank pain and hematuria. Objective Physical Exam Vitals and nursing note reviewed. Constitutional: Appearance: Normal appearance. Abdominal: General: Bowel sounds are normal. There is no abdominal bruit. Palpations: Abdomen is not rigid. There is no mass or pulsatile mass. Tenderness: There is no abdominal tenderness. There is no guarding or rebound. Negative signs include Kay's sign and McBurney's sign. Neurological: Mental Status: She is alert and oriented to person, place, and time. Psychiatric: Mood and Affect: Affect normal. lamp BMP 2018 - GFR > 60 , normal BUN, Creatinine ASSESSMENT/PLAN: 1. Urinary frequency - ICD9: 788.41, ICD10: R35.0 (primary diagnosis) acute - UA positive for marquis esterase, hematuria and nitrates - Send urine for culture - Begin treatment with Bactrim DS BID for 3 days - UA DIP, URINE (POC) - URINE CULTURE 2. Acute UTI - ICD9: 599.0, ICD10: N39.0 -Follow up with PCP or return to clinic if symptoms not improving in 3 days or if you develop any new (or worsening) symptoms such as fever, chills or back pain go to ER. Diagnosis and treatment plan were discussed and questions were answered to the patient's satisfaction. Pt acknowledged understanding of concepts and follow up plan. Specific signs and symptoms that would indicate the need for higher level of care were discussed in detail warranting prompt ER evaluation. Yessy Morrow APRN.OMAIRA Morrow APRN.OMAIRA [facility] 11-26-2021 Note HNO ID: [id number] Author: Dany Webb PA-C Service: ? Author Type: Physician Basket Maker Type: Progress Notes Filed: 11/26/2021 2:30 PM Note Text: FOLLOW UP VISIT - HERNIA NAME: Nancy Quezada [facility] NO.: [id number] DATE OF SERVICE: 11/26/2021 : 1940 REFERRING PHYSICIAN: Leticia Davidson MD Nancy is a patient I am following for a umbilical hernia. Dr. Larios performed an umbilical hernia repair with mesh on 11/19/21. The patient currently notes no major complaints but does note her energy level and appetite are still lower than usual for her. States her throat was sore for a couple of days after surgery which has since resolved. She has noted some acid reflux which resolved with OTC medication. she denies fever, chills or abdominal pain. she does note some mild incisional discomfort. she notes no bulges at the operative site VITALS: Blood pressure 158/78, pulse 88, temperature 36.7 ?C (98 ?F), height 154.9 cm (5' 1 ), weight 68.5 kg (151 lb), SpO2 96 %. General: patient is alert, cooperative, pleasant and in no acute distress On examination, the abdomen is benign. The incision is healing well without signs of infection or inflammation. There are no signs of recurrent hernia formation. Assessment IMPRESSION: status post umbilical hernia repair with mesh PLAN: If the patient notes any problems, she should contact me immediately. she may return to her regular activities as tolerated, with the exception of no lifting greater than 20 pounds for the next 7 weeks. If patient feels the urge to cough or sneeze, they should brace against the repair site with their hands or a pillow. -Supplement diet with Boost, Ensure or [place] instant breakfast shakes until appetite has returned to normal -Increase walking/ambulation each day. When resting, recommend sitting upright in a chair rather than reclining in bed -Heating pad for abdominal discomfort -Drink plenty of fluids -Remain upright for at least 30 minutes after eating, and avoiding eating or drinking after 7 pm Diagnoses: (Z98.890, Z87.19) S/P hernia repair (primary encounter diagnosis) Return to Clinic: The patient is instructed to follow-up with me as needed. Patient verbalized understanding of all above and agreed with the plan. Dany Webb PA-C [facility] documented as of this encounter (statuses as of 03/02/2022) [facility]02-09-2022 History of Past illness Narrative* Problem Noted Date Resolved Date Incisional hernia, without obstruction or gangre ne 11/19/2021 11/19/2021 Cellulitis and abscess of toe, unspecified 11/0902/10/2010 Ingrowing nail 10/25/2008 02/10/2010 documented as of this encounter (statuses as of 03/30/2022) [facility]-09-2022 History of Past illness Narrative* Problem Noted Date Resolved Date Incisional hernia, without obstruction or gangre ne 11/19/2021 11/19/2021 Cellulitis and abscess of toe, unspecified 11/0902/10/2010 Ingrowing nail 10/25/2008 02/10/2010 documented as of this encounter (statuses as of 03/30/2022) [facility]2022 History of Past illness Narrative* Problem Noted Date Resolved Date Incisional hernia, without obstruction or gangre ne 11/19/2021 11/19/2021 Cellulitis and abscess of toe, unspecified 11/0902/10/2010 Ingrowing nail 10/25/2008 02/10/2010 documented as of this encounter (statuses as of 04/02/2022) [facility]2022 History of Past illness Narrative* Problem Noted Date Resolved Date Incisional hernia, without obstruction or gangre ne 11/19/2021 11/19/2021 Cellulitis and abscess of toe, unspecified 11/0902/10/2010 Ingrowing nail 10/25/2008 02/10/2010 documented as of this encounter (statuses as of 05/14/2022) [facility]2022 History of Past illness Narrative* Problem Noted Date Resolved Date Incisional hernia, without obstruction or gangre ne 11/19/2021 11/19/2021 Cellulitis and abscess of toe, unspecified 11/0902/10/2010 Ingrowing nail 10/25/2008 02/10/2010 documented as of this encounter (statuses as of 08/05/2022) [facility] History of Past illness Narrative* Problem Noted Date Resolved Date Incisional hernia, without obstruction or gangre ne 11/19/2021 11/19/2021 Cellulitis and abscess of toe, unspecified 11/0902/10/2010 Ingrowing nail 10/25/2008 02/10/2010 documented as of this encounter (statuses as of 09/14/2022) [facility]02-09-2022 NoteHNO ID: [id number] Author: Tila Lewis APRN.MUNICIPAL ENGINEER Service: Anesthesiology Author Type: Nurse Negative Cleaner Type: Anesthesia Procedure Notes Filed: 11/19/2021 11:59 AM Note Text: ANESTHESIOLOGY PROCEDURE NOTE Airway General Information Procedure Start Time/Medication Administration: 11/19/2021 11:47 AM Patient location during procedure: OR Staffing MUNICIPAL ENGINEER: Tila Lewis APRN.MUNICIPAL ENGINEER Performed by: MUNICIPAL ENGINEER Indications and Patient Condition Preoxygenated: yes Patient position: sniffing Difficult Mask: No Indications for airway management: anesthesia anesthesia circuit Method: asleep Cricoid Pressure: No Airway Accessory: oral airway (size 3) Final Airway Details Final airway type: endotracheal airway Final Endotracheal Airway: ETT Cuffed: yes Successful intubation technique: video laryngoscopy Devices used: Lara (DL x1 MAC 4 blade, Grade III view, no intubation attempt; mask ventilation between laryngoscopies) Endotracheal tube insertion site: oral ETT size (mm): 7.0 Measured from: lips Measurement (cm): 21 Placement verified by: chest auscultation and capnometry Cormack-Lehane Classification: grade IIa - partial view of glottis Number of attempts at approach: 1 Airway trauma: none. Airway not difficult SIGNATURE: Tila Lewis APRN.MUNICIPAL ENGINEER PATIENT NAME: Nancy Henriquez DATE: November 19, 2021 TIME: 11:58 AM CSN: [id number] NoteHNO ID: [id number] Author: Deven Larios MD Service: ? Author Type: Physician Type: Progress Notes Filed: 10/21/2021 4:20 PM Note Text: HISTORY AND PHYSICAL Nancy Henriquez 1940 REFERRING PHYSICIAN: Annabella Bangura A* CHIEF COMPLAINT: Consult (evaluate umbilical pain, lump in that area) HPI: Nancy is a 81 year old female with a complaint of a bulge and discomfort in her umbilical region. The patient notes discomfort in this area with lifting and straining. The symptoms have maintained, over the past 2 weeks. The patient notes no symptoms of bowel obstruction and denies nausea or vomiting. The patient was seen by annabella bangura who felt the patient has a hernia. Nancy was referred for evaluation and treatment. The patient is being seen by me today at the request of Dr. Bangura for my opinion and advice regarding Umbilical hernia without obstruction and without gangrene (primary encounter diagnosis). PAST MEDICAL HISTORY Diagnosis Date - Acute gastritis without mention of hemorrhage - Benign neoplasm of colon - Dyskinesia of esophagus - osteoporosis - Personal history of colonic polyps 04/08/2015 - Renal calculus - Shoulder problem Sees Dr. Sobeida Chun- PT - Snoring PAST SURGICAL HISTORY Procedure Laterality Date - APPENDECTOMY 1989 - CATARACT EXTRACTION HX Right 08/2018 Dr. Donny HARVEY W/REM POLYP SNARE 04/08/11 - COLONOSCOP W/ OR W/O BRSH SPEC 04/08/2015 Repeat 2024 - EGD W/O OR W/BRUSH/WASH EGD - LIGATE FALLOPIAN TUBE Tubal ligation - LITHOTRIPSY / 1 SIDE 2019 - REPAIR ROTATOR CUFF,ACUTE Rotator cuff repair/Left shoulder Current Outpatient Medications Medication Sig - conjugated estrogens (PREMARIN) vaginal cream insert 1 gram vaginally every week as directed AND SMALL PEA SIZED DAB EXTERNALLY ONCE WEEKLY - phenazopyridine (PYRIDIUM, GERIDIUM) 100 mg tablet Take 1 tablet by mouth three times daily as needed. (Patient taking differently: Take 100 mg by mouth three times daily as needed. PRN for UTI ) - MULTIVITAMIN ORAL Take by mouth. - OTC PRODUCT [employer] with Lutein one daily - OTC PRODUCT Parselenium E (Vitamin E 400 units and selenium 10 mcg) daily - [id number] ORAL Take by mouth once daily. No current facility-administered medications for this visit. ALLERGIES: Seasonal Allergies PERSONAL HISTORY: Social History Tobacco Use - Smoking status: Never Smoker - Smokeless tobacco: Never Used Vaping Use - Vaping Use: Never used Substance Use Topics - Alcohol use: Yes Comment: seldom - Drug use: No FAMILY HISTORY: FAMILY HISTORY Problem Relation Age of Onset - other (ALS) Mother - Stroke Father - Cancer Father Prostate - other (heart problems) Father - Cancer Maternal Grandfather - Heart Brother arrythmia REVIEW OF SYMPTOMS: The review of systems data was entered by the nurse and reviewed by me There are no exam notes on file for this visit. PHYSICAL EXAMINATION: General: The patient is 81 year old female, well nourished, well hydrated in no acute distress. The patient is oriented to time, place, and person. VITALS: Blood pressure 138/80, pulse 85, temperature 36.4 ?C (97.5 ?F), height 154.9 cm (5' 1 ), weight 69.3 kg (152 lb 12.8 oz), SpO2 98 %. Body mass index is 28.87 kg/m?. HEENT: Normal cephalic, ataumatic, pupils are equally round, sclera are anicteric, mucous membranes are moist, oropharynx is clear. Neck has no masses, asymmetry or lymphadenopathy. Thyroid is unremarkable. Respiratory: Clear to auscultation and percussion. Normal respiratory excursion and pattern. Cardiac: Examination is regular rate and rhythm. Abdominal exam: Soft, nontender, with no palpable masses. No hepatosplenomegaly. A small, reducible umbilical hernia, no right or left inguinal hernias are noted Rectal exam: exam deferred Extremities: no clubbing, cyanosis or edema. No adenopathy. Other: LABORATORY VALUES: As Noted RADIOLOGIC STUDIES: As Noted Assessment IMPRESSION: umbilical hernia PLAN: My plan is to perform a umbilical hernia repair with mesh. The planned surgical procedure was discussed extensively with the patient. The risks, benefits, anticipated outcomes and possible complications were mentioned. Nancy undersands that all hernia repair surgery has a chance of recurrence and/or chronic post operative pain. My staff has also explained the procedure in understandable terms and the patient was given the option to take printed material concerning the planned procedure. The patient had the opportunity to ask questions concerning the planned procedure. The patient freely consents to the planned procedure. My findings have been communicated to Dr. Bangura via shared medical record. This note will be forwarded to Dr. Leticia Davidson MD. Diagnoses: (K42.9) Umbilical hernia without obstruction and without gangrene (primary encount (more content not included)...[facility]01-10-2022 NoteHNO ID: [id number] Author: Annabella Bangura APRN.PUBLICITY MANAGER Service: ? Author Type: Nurse Practitioner Type: Progress Notes Filed: 10/20/2021 11:04 AM Note Text: Subjective HPI Nancy Henriquez is a 81 year old female who presents with a lump on her stomach, present for the past 3 weeks, but seems to bother her more over the past 4 days. She states it is tender if she bumps into it, otherwise it is not painful. She states it feels like a hard area near her belly button. She has not taken any medication for this at home. She denies any injury to the area. Review of Systems Constitutional: Negative for chills and fever. Respiratory: Negative. Cardiovascular: Negative. Gastrointestinal: Positive for abdominal pain (at umbilicus). Negative for constipation, diarrhea, nausea and vomiting. Skin: Negative for itching and rash. BP 124/82 Pulse 75 Temp 36.5 ?C (97.7 ?F) Resp 16 Wt 69.5 kg (153 lb 3.2 oz) SpO2 98% BMI 28.95 kg/m? PAST MEDICAL HISTORY Diagnosis Date - Acute gastritis without mention of hemorrhage - Benign neoplasm of colon - Dyskinesia of esophagus - osteoporosis - Personal history of colonic polyps 04/08/2015 - Renal calculus - Shoulder problem Sees Dr. Sobeida Chun- PT - Snoring PAST SURGICAL HISTORY Procedure Laterality Date - APPENDECTOMY 1989 - CATARACT EXTRACTION HX Right 08/2018 Dr. Hines - COLONOS W/REM POLYP SNARE 04/08/11 - COLONOSCOP W/ OR W/O BRSH SPEC 04/08/2015 Repeat 2024 - EGD W/O OR W/BRUSH/WASH EGD - LIGATE FALLOPIAN TUBE Tubal ligation - LITHOTRIPSY / 1 SIDE 2019 - REPAIR ROTATOR CUFF,ACUTE Rotator cuff repair/Left shoulder ALLERGIES Seasonal Allergies MEDICATIONS conjugated estrogens (PREMARIN) vaginal cream insert 1 gram vaginally every week as directed AND SMALL PEA SIZED DAB EXTERNALLY ONCE WEEKLY phenazopyridine (PYRIDIUM, GERIDIUM) 100 mg tablet Take 1 tablet by mouth three times daily as needed. MULTIVITAMIN ORAL Take by mouth. OTC PRODUCT [employer] with Lutein one daily OTC PRODUCT Parselenium E (Vitamin E 400 units and selenium 10 mcg) daily [id number] ORAL Take by mouth once daily. FAMILY HISTORY Problem Relation Age of Onset - other (ALS) Mother - Stroke Father - Cancer Father Prostate - other (heart problems) Father - Cancer Maternal Grandfather - Heart Brother arrythmia Social History Tobacco Use - Smoking status: Never Smoker - Smokeless tobacco: Never Used Substance Use Topics - Alcohol use: Yes Comment: seldom - Drug use: No Objective Physical Exam Vitals and nursing note reviewed. Constitutional: Appearance: Normal appearance. Cardiovascular: Rate and Rhythm: Normal rate. Pulmonary: Effort: Pulmonary effort is normal. Abdominal: General: There is no distension. Palpations: Abdomen is soft. Tenderness: There is abdominal tenderness (at umbilicus). Skin: General: Skin is warm and dry. Findings: No erythema or rash. Neurological: Mental Status: She is alert. ASSESSMENT/PLAN: 1. Umbilical pain - ICD9: 789.05, ICD10: R10.33 - CONSULT TO GENERAL SURGERY - do not lift heavy items. - may take tylenol as needed for pain. - Follow-up with your PCP in 3-5 days if symptoms have not improved or sooner if symptoms worsen - Discussed red flags and need for immediate medical evaluation if any occur. - Discussed supportive care treatment with fluids, rest and analgesia. - Discussed expected course of illness Annabella Bangura APRN.CNPC[facility] HospitalEvaluation note* Diagnosis Burning with urination- Primary Dysuria documented in this encounter [facility] note* Diagnosis Urinary frequency- Primary Burning with urination Dysuria [facility]* Diagnosis Non-recurrent acute suppurative otitis media of left ear without spontaneous rupture of tympanic membrane- Primary documented in this encounter [facility] note* Diagnosis Congestion of right ear- Primary Vertigo Dizziness and giddiness documented in this encounter [facility] Summary Purpose Family History No Family History Records FoundNo Family History Records Found Advance Directives No Advanced Directives Records FoundDocuments on File Type Date Recorded Patient 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 Consultant Expl 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 Advance Directive(s) 11/19/2021 9:32 AM Advance Directive(s) 11/01/2021 11:34 AM Additional Source Comments INFORMATION SOURCE (unrecogn ized section and content) DATE CREATED AUTHOR AUTHOR'S ORGANIZ ATION 09/14/2022 [facility] Source Comments (unrecognize d section and content) In the event this informatio n is protected by the Federal Confidentiality of Alcohol and Drug Abuse Patient Records regulations: The Federal rules restrict any use of the information to criminally investigate or prosecute any alcohol or drug abuse patient.[facility] the event this information is protected by the Federal Confidentiality of Alcohol and Drug Abuse Patient Records regulations: The Federal rules restrict any use of the information to criminally investigate or prosecute any alcohol or drug abuse patient.[facility] CenterIn the event this information is protected by the Federal Confidentiality of Alcohol and Drug Abuse Patient Records regulations: The Federal rules restrict any use of the information to criminally investigate or prosecute any alcohol or drug abuse patient.[facility] Center[facility] the event this information is protected by the Federal Confidentiality of Alcohol and Drug Abuse Patient Records regulations: The Federal rules restrict any use of the information to criminally investigate or prosecute any alcohol or drug abuse patient.[facility] Center[facility] the event this information is protected by the Federal Confidentiality of Alcohol and Drug Abuse Patient Records regulations: The Federal rules restrict any use of the information to criminally investigate or prosecute any alcohol or drug abuse patient.[facility] CenterIn the event this information is protected by the Federal Confidentiality of Alcohol and Drug Abuse Patient Records regulations: The Federal rules restrict any use of the information to criminally investigate or prosecute any alcohol or drug abuse patient.[facility] CenterIn the event this information is protected by the Federal Confidentiality of Alcohol and Drug Abuse Patient Records regulations: The Federal rules restrict any use of the information to criminally investigate or prosecute any alcohol or drug abuse patient.[facility] Reason for Visit (unrecogniz ed section and content) Reason Comments Urinary Frequency burning with urinati on x 1 day Reason Comments Results Reason Comments external imaging CT abd/pel Reason Comments Ear Problem Feels clogged, x 1 w [place] Reason Comments Ear Pain Right ear problem x 1 day Care Teams (unrecognized sec tion and content) [employer] Relationship Specialty Start Date End Date Leticia Davidson MD [address] [place] [address] PCP - General 02/10/10 [employer] Relationship Specialty Start Date End Date Leticia Davidson MD [address] [place] [address] PCP - General 02/10/10 [employer] Relationship Specialty Start Date End Date Leticia Davidson MD [address] [place] [address] PCP - General 02/10/10 [employer] Relationship Specialty Start Date End Date Leticia Davidson MD [address] [place] [address] PCP - General 02/10/10 [employer] Relationship Specialty Start Date End Date Leticia Davidson MD [address] [place] [address] PCP - General 02/10/10 FOR RECORDS PERTAINING TO PATIENTS WHO ARE OR HAVE BEEN ENROLLED IN A CHEMICAL DEPENDENCY/SUBSTANCEABUSE PROGRAM, SOME INFORMATION MAY BE OMITTED. This clinical summary was aggregated from multiple sources. Caution should be exercised in using it in the provision of clinical care. This summary normalizes information from multiple sources, and as a consequence, information in this document may materially change the coding, format and clinical context of patient data. In addition, data may be omitted in some cases. CLINICAL DECISIONS SHOULD BE BASED ON THE PRIMARY CLINICAL RECORDS. [facility]. provides no warranty or guarantee of the accuracy or completeness of information in this document.
[2023-10-07 18:05] LABS: AST(SGOT) 29 U/L (15-37); Alanine Aminotransfer ALT/SGPT 22 U/L (13-56); Albumin, Serum 3.6 g/dL (3.2-5.0); Alkaline Phosphatase 77 U/L (45-117); Anion Gap 7 (5-15); BUN 18 mg/dL (7-18); BUN/Creat Ratio 20.5 RATIO (10-20); Calcium,Total 9.5 mg/dL (8.5-10.1); Chloride 102 mmol/L (98-107); Creatinine, Serum 0.88 mg/dL (0.55-1.02); EST Glomerular Filtration Rate 66 mL/min (>60); Est Glom Filt Rate - Afr Amer 79 mL/min (>60); Globulin 3.7 g/dL (2.2-4.2); Glucose 129 mg/dL (74-106); Potassium 4.2 mmol/L (3.5-5.1); Protein, Total 7.3 g/dL (6.4-8.2); Sodium Level 137 mmol/L (136-145)
--- NOTE | 2023-10-07 18:05 | US_ITS ---
INDICATION: PAIN EXAMINATION: Ultrasound US Abdomen Limited (quadrant) TECHNIQUE: Powell scale and color doppler imaging was performed of the right upper quadrant. COMPARISON: FINDINGS: LIVER: There is heterogeneous echotexture measuring 14.6 cm. Underlying nodules cannot be excluded. No focal hepatic lesion. There is no free fluid. GALLBLADDER AND BILIARY TREE: There is cholelithiasis. No pericholecystic fluid or gallbladder wall thickening is demonstrated. The proximal common bile duct measures 3.2 mm, which is within normal limits for the patient''s age. Songraphic Kay''s sign: Positive. PANCREAS: No focal abnormality is demonstrated in the pancreas. Limited visualization of the pancreatic tail. No pancreatic ductal dilatation. Right kidney: 10.1 x 4.3 x 4.6 cm. The cortex is 10 mm. No hydronephrosis. 1.2 cm cyst. US/Gallbladder IMPRESSION: Cholelithiasis. Positive sonographic Kay''s sign. No biliary dilatation. Heterogeneous liver with questionable nodules. Follow-up CT is recommended. Right renal cyst. Electronically Signed: Zhen Hess DO at 19:12 EST ,
--- NOTE | 2023-10-07 18:06 | EDS_ITS ---
HPI HPI - GI History of Present Illness Chief Complaint: Abd Pain Informant: patient and family Abdominal Pain/Flank Pain Onset: Yesterday Timing: Continuous Quality: Aching Location: RUQ Nausea/Vomiting/Emesis GI Symptom: Positive for Nausea and Vomiting Diarrhea/Melena/Hematochezia GI Symptom: Negative for Diarrhea, Melena or Hematochezia Associated Symptoms Associated Symptoms: Negative for Dysuria, Frequency or Hematuria Narrative Narrative: After eating cheesy potatoes for dinner last night patient went to bed and woke up with right upper quadrant pain and multiple episodes of vomiting, she did end up having some cramping in her legs to the got better when she got up and walked around, but she has been having persistent noncolicky pain and nausea/vomiting all day. She states she was still having abdominal pain when she got to the emergency department but upon evaluation now in the room, she states the pain is much improved. No pain into her back. No fevers. No pleuritic discomfort or cough/dyspnea. [facility] Medical History Kidney stones Non-smoker Vertigo Home Medications calcium carbonate 600 mg calcium (1,500 mg) tablet 600 mg PO DAILY supplement 05/10/19 [History Last Taken 05/10/19] cholecalciferol (vitamin D3) 10 mcg (400 unit) tablet 400 unit PO DAILY Supplimentation 05/10/19 [History Last Taken 05/10/19] conjugated estrogens 0.625 mg/gram vaginal cream 1 g topical TU as needed 05/10/19 [History Last Taken 05/09/19] [id number] C-Mn 750 mg-600 mg-55 mg-5 mg tablet 2 ea PO DAILY supplement 05/10/19 [History Last Taken 05/10/19] magnesium 250 mg tablet 250 mg PO DAILY supplement 05/10/19 [History Last Taken 05/10/19] multivitamin 1 ea PO DAILY supplimentation 05/10/19 [History Last Taken 05/10/19] vit A 300 mcg-C 200 mg-E 27 mg-lutein 2 mg and minerals tablet 2 ea PO DAILY supplement 05/10/19 [History Last Taken 05/10/19] vitamin E 268 mg (400 unit) capsule 400 unit PO DAILY supplement 05/10/19 [History Last Taken 05/10/19] Allergy/AdvReac Type Severity Reaction Status Date / Time No Known Allergies Allergy Verified 10/07/23 16:01 Surgical History H/O hernia repair History of appendectomy History of rotator cuff surgery Social History household members: spouse and children housing: house Smoking Status: Never smoker alcohol intake: never ROS ROS ED Constitutional Constitutional ED: Denies chills or fever(s) Eyes Eyes: Denies change in vision or diplopia ENT ENT ED: Denies rhinorrhea or sore throat Cardiovascular Cardiovascular: Denies chest pain or palpitations Respiratory/Chest Respiratory/Chest: Denies cough or dyspnea Gastrointestinal Gastrointestinal: Reports abdominal pain, nausea and vomiting; Denies diarrhea Genitourinary Genitourinary ED: Denies dysuria or hematuria Musculoskeletal Musculoskeletal: Denies back pain or neck pain Integumentary Denies abscess or rash Neurologic Neurologic: Denies headache(s), paresthesias or weakness Psychiatric Psychiatric: Denies anxiety or suicidal thoughts EXAM Physical Exam Const Vital Signs: 10/07/23 16:02 10/07/23 17:34 10/07/23 19:38 Temperature 96.0 F L 98.6 F Temperature Source Temporal Pulse Rate 74 76 80 Respiratory Rate 16 17 18 Blood Pressure 167/81 H 149/67 H 157/76 H Blood Pressure Mean 109 94 103 Pulse Ox 98 97 94 Oxygen Delivery Method Room Air Room Air Positive well nourished and well developed General Appearance ED: well developed and NAD HEENT Reports moist mucous membranes normocephalic and atraumatic Eyes PERRL and EOMs intact bilaterally Neck full ROM and supple Resp normal respiratory effort and clear to auscultation bilaterally Cardio regular rate, regular rhythm and no murmurs GI non-distended GI Narrative: Tender throughout the right upper quadrant. Positive Kay but otherwise no guarding or rebound. Mildly tender medial aspect the left lower quadrant, but patient states that is chronic discomfort from a prior hernia repair. Auscultation: normoactive bowel sounds Palpation: soft Back/Spine no CVA tenderness General Back: other FROM Extremity normal to inspection General Extremety ED: Negative for edema, pulses abnormal or tenderness General Extremity: Negative for edema or pulses abnormal Neuro oriented x3, CN's II-XII intact bilaterally and no sensory deficits noted Sensorium / Orientation: awake and alert Motor Exam: strength 5/5 throughout Skin no rashes or lesions noted and no wounds MDM MDM MDM Narrative Medical decision making narrative: Symptoms concerning for early acute cholecystitis, labs and ultrasound which I reviewed, showing cholelithiasis and a positive sonographic Kay with leukocytosis, consistent with this. Patient is stable, doing well with regards to pain she was given nausea medication, IV fluids, and empiric Zosyn. Discussed with surgery. Given ultrasound result which I reviewed and I agree with, requesting CT of the abdomen/pelvis to characterize hepatic abnormalities which is also ordered. Reviewed the images as well as results which I agree with, which surprisingly shows what appears to be a bowel obstruction, more likely the etiology of her symptoms in the past 12-24 hours under the circumstances. Surgery states she does not require emergent surgery for this, she recommends holding off on NG tube unless she vomits again, and admit to medicine she will follow/consult. Lab Data Attestation: I reviewed the patient's lab results. Labs: Laboratory Results - last 24 hr 10/07/23 17:39 WBC 12.4 H RBC 5.15 Hgb 15.1 H Hct 46.6 MCV 90.5 MCH 29.3 MCHC 32.4 RDW Std Deviation 44.4 H RDW Coeff of Joni 13.3 Plt Count 295 MPV 10.3 Immature Gran % (Auto) 0.400 Neut % (Auto) 84.1 H Lymph % (Auto) 9.0 L Dewitt % (Auto) 6.0 Eos % (Auto) 0.2 Baso % (Auto) 0.3 Absolute Neuts (auto) 10.4 H Absolute Lymphs (auto) 1.12 Nucleated RBC % 0 Sodium 137 Potassium 4.2 Chloride 102 Carbon Dioxide 28.0 Anion Gap 7 BUN 18 Creatinine 0.88 Est GFR (MDRD) Af Amer 79 Est GFR (MDRD) Non-Af 66 BUN/Creatinine Ratio 20.5 H Glucose 129 H Calcium 9.5 Total Bilirubin 0.80 AST 29 ALT 22 Alkaline Phosphatase 77 Total Protein 7.3 Albumin 3.6 Globulin 3.7 Albumin/Globulin Ratio 1.0 Lipase 18 Radiography Diagnostic Testing: Clinical Impression(s) from Imaging Studies Gallbladder Ultrasound 10/07/23 18:05 IMPRESSION: Cholelithiasis. Positive sonographic Kay''s sign. No biliary dilatation. Heterogeneous liver with questionable nodules. Follow-up CT is recommended. Right renal cyst. Electronically Signed: Zhen Hess DO at 19:12 EST Reading Location ID and State: [facility] / [place] Tel [phone], Service support , Management Discussion w/another healthcare provider: Hospitalist and Film Projector Operator (surgery [facility]) Discharge Plan Dx/Rx/DC Orders Clinical Impression: Small intestine obstruction, Cholelithiasis Disposition Disposition: Acute Care Hospital [facility]
[2023-10-07] MEDS: Ondansetron 4 MG/2 ML Vial IV (18:11)
[2023-10-07] MEDS: 0.9% Normal Saline (1000mL) 1,000 ML 125 ML IV (18:12)
[2023-10-07 18:34] LABS: Lipase 18 U/L (13-75)
[2023-10-07] MEDS: Piperacil/Tazobactam 3.375 GM in 0.9% Normal Saline (50mL MB+) 50 ML IV (19:24)
--- NOTE | 2023-10-07 19:34 | PCM.HP.STD ---
HPI - General General Date of Admission: 10/07/23 Date of Service: 10/07/23 HPI Narrative NANCY LOAIZA, is a 83 F who presents to the ER due to abdominal pain nausea and vomiting. Patient states pain started upper abdomen mainly on the right side about 1 AM in the morning?waking her up. Patient last ate dinner about 6 PM and no stuff she had previously. Patient's never had previous pain after eating. Patient states she rarely has any reflux or heartburn. Patient had an ultrasound of her gallbladder showed gallstones?on my read 2 4 mm stones with no gallbladder wall thickening or pericholecystic fluid, normal common bile duct, positive sonographic Kay sign. Also called indeterminate lesions in the liver recommend follow-up CT [facility] Medical History Kidney stones Non-smoker Vertigo Home Medications calcium carbonate 600 mg calcium (1,500 mg) tablet 600 mg PO DAILY supplement 05/10/19 [History Last Taken 10/06/23] cholecalciferol (vitamin D3) 10 mcg (400 unit) tablet 400 unit PO DAILY Supplimentation 05/10/19 [History Last Taken 10/06/23] conjugated estrogens 0.625 mg/gram vaginal cream 1 g topical TU as needed 05/10/19 [History Last Taken 05/09/19] [id number]-[id number]-vym C-Mn 750 mg-600 mg-55 mg-5 mg tablet 2 ea PO DAILY supplement 05/10/19 [History Last Taken 10/06/23] magnesium 250 mg tablet 250 mg PO DAILY supplement 05/10/19 [History Last Taken 10/06/23] multivitamin 1 ea PO DAILY supplimentation 05/10/19 [History Last Taken 10/06/23] vit A 300 mcg-C 200 mg-E 27 mg-lutein 2 mg and minerals tablet 2 ea PO DAILY supplement 05/10/19 [History Last Taken 10/06/23] vitamin E 268 mg (400 unit) capsule 400 unit PO DAILY supplement 05/10/19 [History Last Taken 10/06/23] Allergy/AdvReac Type Severity Reaction Status Date / Time No Known Allergies Allergy Verified 10/07/23 16:01 Surgical History H/O hernia repair History of appendectomy History of rotator cuff surgery Social History household members: spouse and children housing: house Smoking Status: Never smoker alcohol intake: never ROS Constitutional Constitutional: Reports anorexia Eyes Eyes: Denies change in vision ENT HEENT: Denies dysphagia Cardiovascular Cardiovascular: Denies chest pain Respiratory/Chest Respiratory/Chest: Denies cough Gastrointestinal Gastrointestinal: Reports abdominal pain, nausea and vomiting; Denies constipation or diarrhea Genitourinary Genitourinary: Denies dysuria Musculoskeletal Musculoskeletal: Denies joint swelling Integumentary Integumentary: Denies jaundice Neurologic Neurologic: Denies focal weakness Psychiatric Psychiatric: Denies depression Endocrine Endocrinology: Denies palpitations Hematologic/Lymphatic Hematologic/Lymphatic: Denies easy bleeding Vital Signs Vital Signs Vital Signs: 10/07/23 16:02 10/07/23 17:34 Temperature 96.0 F L Temperature Source Temporal Pulse Rate 74 76 Respiratory Rate 16 17 Blood Pressure 167/81 H 149/67 H Blood Pressure Mean 109 94 Pulse Ox 98 97 Oxygen Delivery Method Room Air Room Air Physical Exam Const alert, oriented x3 and no apparent distress HEENT normocephalic and head/scalp atraumatic Resp normal respiratory effort Cardio regular rate GI soft to palpation; Negative for non-distended Palpation: tender epigastric, LLQ and LUQ; Negative for guarding Extremity no clubbing, cyanosis or edema Neuro CN's II-XII intact bilaterally Psych mental status grossly normal Results Lab / Micro Data 10/08/23 05:15 10/08/23 05:15 Labs: Laboratory Results - last 24 hr 10/07/23 17:39: WBC 12.4 H, RBC 5.15, Hgb 15.1 H, Hct 46.6, MCV 90.5, MCH 29.3, MCHC 32.4, RDW Std Deviation 44.4 H, RDW Coeff of Joni 13.3, Plt Count 295, MPV 10.3, Immature Gran % (Auto) 0.400, Neut % (Auto) 84.1 H, Lymph % (Auto) 9.0 L, [place] % (Auto) 6.0, Eos % (Auto) 0.2, Baso % (Auto) 0.3, Absolute Neuts (auto) 10.4 H, Absolute Lymphs (auto) 1.12, Nucleated RBC % 0, Sodium 137, Potassium 4.2, Chloride 102, Carbon Dioxide 28.0, Anion Gap 7, BUN 18, Creatinine 0.88, Est GFR (MDRD) Af Amer 79, Est GFR (MDRD) Non-Af 66, BUN/Creatinine Ratio 20.5 H, Glucose 129 H, Calcium 9.5, Total Bilirubin 0.80, AST 29, ALT 22, Alkaline Phosphatase 77, Total Protein 7.3, Albumin 3.6, Globulin 3.7, Albumin/Globulin Ratio 1.0, Lipase 18 Imagaing Radiology Impression Gallbladder Ultrasound 10/07/23 18:05 IMPRESSION: Cholelithiasis. Positive sonographic Kay''s sign. No biliary dilatation. Heterogeneous liver with questionable nodules. Follow-up CT is recommended. Right renal cyst. Electronically Signed: Zhen Hess DO at 19:12 EST Reading Location ID and State: [facility] / [place] Tel [phone], Service support , Assessment & Plan Assessment/Plan (1) Cholelithiasis: (2) Epigastric abdominal pain: (3) LUQ abdominal pain: (4) LLQ abdominal pain: (5) Small intestine obstruction: PLAN: Plan Patient's exam is a little bit confusing as per ER physician and daughter she had more right upper quadrant pain previously for me she had no right upper quadrant pain but epigastric and left upper quadrant and left lower quadrant abdominal pain. Ultrasound has sonographic positive sign however no other signs of acute cholecystitis on ultrasound and the stones were 4 mm in size and not near the neck of the gallbladder. Patient did have an elevated white blood cell count with a left shift and normal LFTs on admission. Due to the ultrasound also shows indeterminate liver lesions plan to get a CAT scan of the abdomen as well. For patient's initial story is not typical for gallbladder as it did not happen half an hour to hour after eating happened middle night woke her up which can be more due to gastric etiology. Await CT abdomen pelvis. Addendum: Patient CT abdomen pelvis shows a small bowel obstruction no evidence of inflammation near the gallbladder. Official read pending. Unable to see in obvious transition area. Patient's stomach is decompressed not sure that she would need NG currently patient states her pain has improved some patient did have a lot of nausea and vomiting which is likely why her stomach is decompressed. Patient did have nausea and vomiting would recommend NG. Recommend admission to medicine and plan for conservative management with x-ray in the morning. Namrata Evangelista M.D. Pager: [phone] [facility] [address] [place] [address], [facility], [address] [place] [id number] Office: [phone] Charges/Coding Visit Charges Inpatient E&M: 81451 Init Hosp L3
[2023-10-07 19:38] VITALS: BP 157/76; PULSE 80; RESP 18; TEMP 37; O2SAT 94
--- OUTSIDE RECORDS SUMMARY | 2023-10-07 19:43 | XMS RPT_ITS | CCD ---
Author Name Unknown Address [address] [place] [address] Organization [facility] Care Team Providers Care Continuous Improvement Coach Name Role Phone Leticia Davidson MD Primary [...] Allergy to substance 4 Other: See Comments [facility] Work Phone: Medications Current Medications Medication Drug [...] 96.6 [degF] Misael Hernandez MD Work Phone: [facility] 09-14-2022 09:44-0500 Body weight 69.13 kg Misael Hernandez MD Work Phone: [facility] 09-14-2022 09:44-0500 Diastolic blood pressure 84 mm[Hg] Misael Hernandez MD Work Phone: [facility] 09-14-2022 09:44-0500 Heart rate 82 /min Misael Hernandez MD Work Phone: [facility] 09-14-2022 09:44-0500 Respiratory rate 21 /min Misael Hernandez MD Work Phone: [facility] 09-14-2022 09:44-0500 SaO2% (BldA) [Mass fraction] 97 % Misael Hernandez MD Work Phone: [facility] 09-14-2022 09:44-0500 Systolic blood pressure 140 mm[Hg] Misael Hernandez MD Work Phone: [facility] 08-05-2022 14:01-0400 Body temperature 97.2 [degF] Jahaira Finch APRN.HOUSEHOLD APPLIANCE MECHANIC Work Phone: [facility] 08-05-2022 14:01-0400 Body weight 68.49 kg Jahaira Finch APRN.HOUSEHOLD APPLIANCE MECHANIC Work Phone: [facility] 08-05-2022 14:01-0400 Diastolic blood pressure 80 mm[Hg] Jahaira Finch APRN.HOUSEHOLD APPLIANCE MECHANIC Work Phone: [facility] 08-05-2022 14:01-0400 Heart rate 86 /min Jahaira Finch APRN.HOUSEHOLD APPLIANCE MECHANIC Work Phone: [facility] 08-05-2022 14:01-0400 Respiratory rate 16 /min Jahaira Finch APRN.HOUSEHOLD APPLIANCE MECHANIC Work Phone: [facility] 08-05-2022 14:01-0400 SaO2% (BldA) [Mass fraction] 97 % Jahaira Finch APRN.HOUSEHOLD APPLIANCE MECHANIC Work Phone: [facility] 08-05-2022 14:01-0400 Systolic blood pressure 140 mm[Hg] Jahaira Finch APRN.HOUSEHOLD APPLIANCE MECHANIC Work Phone: [facility] 03-30-2022 07:47-0400 Body temperature 96.91 [degF] Logan Barraza GEOTECHNICAL ENGINEER.HOUSEHOLD APPLIANCE MECHANIC Work Phone: [facility] 03-30-2022 07:47-0400 Body weight 68.95 kg Logan Barraza GEOTECHNICAL ENGINEER.HOUSEHOLD APPLIANCE MECHANIC Work Phone: [facility] 03-30-2022 07:47-0400 Diastolic blood pressure 62 mm[Hg] Logan Barraza GEOTECHNICAL ENGINEER.HOUSEHOLD APPLIANCE MECHANIC Work Phone: [facility] 03-30-2022 07:47-0400 Heart rate 72 /min Logan Barraza GEOTECHNICAL ENGINEER.HOUSEHOLD APPLIANCE MECHANIC Work Phone: [facility] 03-30-2022 07:47-0400 Respiratory rate 16 /min Logan Barraza GEOTECHNICAL ENGINEER.HOUSEHOLD APPLIANCE MECHANIC Work Phone: [facility] 03-30-2022 07:47-0400 SaO2% (BldA) [Mass fraction] 99 % Logan Barrzaa GEOTECHNICAL ENGINEER.HOUSEHOLD APPLIANCE MECHANIC Work Phone: [facility] 03-30-2022 07:47-0400 Systolic blood pressure 120 mm[Hg] Logan Barraza GEOTECHNICAL ENGINEER.HOUSEHOLD APPLIANCE MECHANIC Work Phone: [facility] 03-02-2022 08:02-0400 Body temperature 97.3 [degF] Misael Hernandez MD Work Phone: [facility] 03-02-2022 08:02-0400 Body weight 68.04 kg Misael Hernandez MD Work Phone: [facility] 03-02-2022 08:02-0400 Diastolic blood pressure 64 mm[Hg] Misael Hernandez MD Work Phone: [facility] 03-02-2022 08:02-0400 Heart rate 82 /min Misael Hernandez MD Work Phone: [facility] 03-02-2022 08:02-0400 Respiratory rate 16 /min Misael Hernandez MD Work Phone: [facility] 03-02-2022 08:02-0400 SaO2% (BldA) [Mass fraction] 98 % Misael Hernandez MD Work Phone: [facility] 03-02-2022 08:02-0400 Systolic blood pressure 110 mm[Hg] Misael Hernandez MD Work Phone: [facility] Encounters Encounter Date Encounter Type Care Provider Facility Start: 09-14-2022 End: 09-14-2022 ambulatory [facility] Facility:[facility] Start: 09-14-2022 End: 09-14-2022 Patient encounter procedure Misael Hernandez MD Work Phone: [facility] Procedures Date Procedure Procedure Detail Performing Clinician Start: 03-02-2022 Urnls dip stick/tabl et rgnt auto w/o microscopy Misael Hernandez MD Work Phone: Start: 09-06-2018 Adult depression screening assessment Misael Hernandez MD Work Phone: Plan of Treatment Date Care Activity Detail Author Start: 03-30-2025 DIABETES SCREEN DIABETES SCREEN [facility] Start: 01-10-2023 Urine microalbumin profile DTAP,TDAP,TD (2 - Td or Tdap) [facility] Start: 06-11-2022 Influenza vaccination [facility] Start: 05-24-2022 DIABETES SCREEN DIABETES SCREEN [facility] Start: 03-30-2022 End: 05-30-2022 Basic metabolic 2000 panel - Serum or Plasma [facility] Work Phone: Immunizations Immunization Date Immunization Notes Care Provider Angela beaulieu 08-26-2017 pneumococcal conjuga te vaccine, 13 valent Misael Hernandez MD Work Phone: [facility] 07-11-2017 influenza, high dose seasonal, preservative-free Misael Hernandez MD Work Phone: [facility] 08-24-2014 influenza, high dose seasonal, preservative-free Misael Hernandez MD Work Phone: [facility] 01-10-2013 tetanus toxoid, redu marie diphtheria toxoid, and acellular pertussis vaccine, adsorbed Misael Hernandez MD Work Phone: [facility] Work Phone: 08-26-2012 influenza virus vacc ine, unspecified formulation Misael Hernandez MD Work Phone: [facility] 02-10-2010 pneumococcal polysaccharide vaccine, 23 valent Misael Hernandez MD Work Phone: [facility] Payers Date Payer Category Payer Medicare [id number] 2020 Unknown MMO MMO MEDICARE SUPPLEMENT [id number] 2020-Present [phone] [address] [place] [address] Indemnity [id number] 2020 Unknown MMO MMO MEDICARE SUPPLEMENT [id number] 2020-Present [phone] [address] [place] [address] Indemnity [id number] 2006 Medicare MEDICARE MEDICAR E A AND B [id number] 2006-Present [phone] [address] [place] [id number] Medicare [id number] 2006 Medicare MEDICARE MEDICAR E A AND B [id number] 2006-Present [phone] [place] [address] Medicare [id number] 2006 Medicare [id number] Social History Date Type Detail Facility Tobacco smoking stat [facility] Never smoked tobacco [facility] Work Phone: Start: 03-02-2022 End: 09-14-2022 Alcohol intake Current drinker of alcohol (finding) [facility] Start: 1940 Sex Assigned At Not on file C [facility] Start: 02-20-2022 End: 09-14-2022 Exposure to SARS-CoV-2 (event) Not sure [facility] Work Phone: Medical Equipment Procedure Code Equipment Code Equipment Origin al Text Equipment Identifier Dates Mesh Parietex 6. 6cm Small Collagen Surgical Patch [facility] Composite - [id number] Start: 11-19-2021 Clinical Notes 10-20-2021 to 09-14-2022 Misael Hernandez MD - 09/14/2022 9:49 AM ESTPatient InstructionsJahaira Finch APRN.OMAIRA - 08/05/2022 2:12 PM EDTRileeloisa Castle Ma - 05/06/2022 12:02 PM EDTPatient Instructions Note Date & Type Note Facility 09-14-2022 Note HNO ID: [id number] Author: Misael Hernandez MD Service: ? Author Type: Physician Type: Progress Notes Filed: 09/14/2022 10:15 AM Note Text: Patient presents with: Ear Pain: Right ear problem x 1 day HPI: Feeling right ear popping and congestion since yesterday; reminds her of left ear symptoms treated as otitis media in July. She was evaluated in the [facility] ED 09/12/22 for vertigo and vomiting. [...] 400 units and selenium 10 mcg) daily [id number] ORAL Take by mouth once daily. phenazopyridine [...] with PCP or ENT. Misael Hernandez MD [facility] 09-14-2022 History of Present illness Narrative Patient presents with: Ear Pain: Right ear problem x 1 day HPI: Feeling right ear popping and congestion since yesterday; reminds her of left ear symptoms treated as otitis media in July. She was evaluated in the [facility] ED 09/12/22 for vertigo and vomiting. [...] MULTIVITAMIN ORAL Take by mouth. OTC PRODUCT [employer] [facility] with Lutein one daily OTC PRODUCT Parselenium E (Vitamin E 400 units and selenium 10 mcg) daily [id number] ORAL Take by mouth once daily. phenazopyridine [...] Misael Hernandez MD documented in this encounter [facility] 08-05-2022 Note HNO ID: [id number] Author: Jahaira Finch APRN.HOUSEHOLD APPLIANCE MECHANIC Service: ? Author Type: Nurse Practitioner Type: [...] 400 units and selenium 10 mcg) daily [id number]#182 ORAL Take by mouth once daily. amoxicillin [...] agreeable to treatment plan. Jahaira Finch APRN.CNP [facility] 08-05-2022 Instructions Jahaira Finch APRN.OMAIRA - [...] but need treatment. documented in this encounter [facility] 08-05-2022 History of Present illness Narrative CC: [...] MULTIVITAMIN ORAL Take by mouth. OTC PRODUCT [employer] with Lutein one daily OTC PRODUCT Parselenium E (Vitamin E 400 units and selenium 10 mcg) daily [id number]#182 ORAL Take by mouth once daily. amoxicillin [...] Jahaira Finch APRN.OMAIRA documented in this encounter [facility] 05-06-2022 Note HNO ID: [id number] Author: Jadyn Castle Ma Service: ? Author Type: ? Type: Progress Notes Filed: 05/14/2022 5:04 PM Note Text: View External Imaging - CT Scan [ID [id number]] [facility] CT Abd/pelvis Jossie Castillo Ma XR Abdomen. View External Imaging - X-ray [ID [id number]] [facility] 05-06-2022 History of Present illness Narrative View External Imaging - CT Scan [ID [id number]] [facility] CT Abd/pelvis Jossie Pizarrojesus Garcia XR Abdomen. View External Imaging - X-ray [ID [id number]] documented in this encounter [facility] 04-02-2022 Miscellaneous Notes Phone call placed patient [...] Yessy Morrow APRN.CNP documented in this encounter [facility] 03-30-2022 Miscellaneous Notes Patient given results and verbalized understanding of instructions given. Sarah Qureshi Please notify that bmp normal. Continue with plan as discussed during visit. documented in this encounter [facility] 03-30-2022 Note HNO ID: [id number] Author: Logan Barraza APRN.CNP Service: ? Author [...] MULTIVITAMIN ORAL Take by mouth. OTC PRODUCT [employer] with Lutein one daily OTC PRODUCT Parselenium E (Vitamin E 400 units and selenium 10 mcg) daily [id number] ORAL Take by mouth once daily. cephALEXin [...] CAPSULE Agrees to plan Logan Barraza APRN.OMAIRA [facility] 03-30-2022 History of Present illness Narrative [...] MULTIVITAMIN ORAL Take by mouth. OTC PRODUCT [employer] with Lutein one daily OTC PRODUCT Parselenium E (Vitamin E 400 units and selenium 10 mcg) daily [id number] ORAL Take by mouth once daily. cephALEXin [...] Logan Barraza APRN.CNP documented in this encounter [facility] 03-30-2022 Instructions Logan Barraza APRN.OMAIRA - 03/30/2022 [...] or fluids down. documented in this encounter [facility] 03-02-2022 Note HNO ID: [id number] Author: Misael Hernandez MD Service: ? Author [...] ORAL Take by mouth. - OTC PRODUCT [employer] with Lutein one daily - OTC PRODUCT Parselenium E (Vitamin E 400 units and selenium 10 mcg) daily - [id number]#182 ORAL Take by mouth once daily. - [...] prophylactic treatment for trips. Misael Hernandez MD [facility] 03-02-2022 History of Present illness Narrative [...] MULTIVITAMIN ORAL Take by mouth. OTC PRODUCT [employer] with Lutein one daily OTC PRODUCT Parselenium E (Vitamin E 400 units and selenium 10 mcg) daily [id number]#182 ORAL Take by mouth once daily. phenazopyridine [...] Misael Hernandez MD documented in this encounter [facility] 12-31-2021 Note HNO ID: [id number] Author: Anne Pelayo PA-C Service: ? Author Type: Physician Tableau Report Developer Type: Progress Notes Filed: 12/31/2021 7:15 PM Note Text: This note was created using Macawriter. Subjective Nancy Henriquez is a 81 year [...] ORAL Take by mouth. - OTC PRODUCT [employer] with Lutein one daily - OTC PRODUCT Parselenium E (Vitamin E 400 units and selenium 10 mcg) daily - [id number]#182 ORAL Take by mouth once daily. - [...] Patient agreeable with plan. Anne Pelayo PA-C [facility] 12-30-2021 Note HNO ID: [id number] Author: Yessy Morrow APRN.HOUSEHOLD APPLIANCE MECHANIC Service: ? Author Type: Nurse Practitioner Type: Progress Notes Filed: 12/30/2021 8:42 AM Note Text: Subjective HPI HPI [place] Shirer is a 81 year old [...] Chun- PT - Snoring - Ventral hernia I have confirmed and edited as necessary, the [facility] Review of Systems Constitutional: Negative for [...] ER evaluation. Yessy Morrow APRN.OMAIRA Morrow APRN.OMAIRA [facility] 11-26-2021 Note HNO ID: [id number] Author: Dany Webb PA-C Service: ? Author Type: Physician Tableau Report Developer Type: Progress Notes Filed: 11/26/2021 2:30 PM Note Text: FOLLOW UP VISIT - HERNIA NAME: Nancy Quezada [facility] NO.: [id number] DATE OF SERVICE: 11/26/2021 : 1940 REFERRING [...] pillow. -Supplement diet with Boost, Ensure or [place] instant breakfast shakes until appetite has returned [...] agreed with the plan. Dany Webb PA-C [facility] documented as of this encounter (statuses as of 03/02/2022) [facility] History of Past illness Narrative* Problem Noted Date Resolved Date Incisional hernia, without obstruction or gangre ne 11/19/2021 11/19/2021 Cellulitis and abscess of toe, unspecified 11/0902/10/2010 Ingrowing nail 10/25/2008 02/10/2010 documented as of this encounter (statuses as of 03/30/2022) [facility] History of Past illness Narrative* Problem Noted Date Resolved Date Incisional hernia, without obstruction or gangre ne 11/19/2021 11/19/2021 Cellulitis and abscess of toe, unspecified 11/0902/10/2010 Ingrowing nail 10/25/2008 02/10/2010 documented as of this encounter (statuses as of 03/30/2022) [facility] History of Past illness Narrative* Problem Noted Date Resolved Date Incisional hernia, without obstruction or gangre ne 11/19/2021 11/19/2021 Cellulitis and abscess of toe, unspecified 11/0902/10/2010 Ingrowing nail 10/25/2008 02/10/2010 documented as of this encounter (statuses as of 04/02/2022) [facility] History of Past illness Narrative* Problem Noted Date Resolved Date Incisional hernia, without obstruction or gangre ne 11/19/2021 11/19/2021 Cellulitis and abscess of toe, unspecified 11/0902/10/2010 Ingrowing nail 10/25/2008 02/10/2010 documented as of this encounter (statuses as of 05/14/2022) [facility] History of Past illness Narrative* Problem Noted Date Resolved Date Incisional hernia, without obstruction or gangre ne 11/19/2021 11/19/2021 Cellulitis and abscess of toe, unspecified 11/0902/10/2010 Ingrowing nail 10/25/2008 02/10/2010 documented as of this encounter (statuses as of 08/05/2022) [facility] History of Past illness Narrative* Problem Noted Date Resolved Date Incisional hernia, without obstruction or gangre ne 11/19/2021 11/19/2021 Cellulitis and abscess of toe, unspecified 11/0902/10/2010 Ingrowing nail 10/25/2008 02/10/2010 documented as of this encounter (statuses as of 09/14/2022) [facility] NoteHNO ID: [id number] Author: Tila Lewis APRN.MASTER CERTIFIED RV TECHNICIAN Service: Anesthesiology Author Type: Nurse E Learning Specialist Type: Anesthesia Procedure Notes Filed: 11/19/2021 11:59 AM Note Text: ANESTHESIOLOGY PROCEDURE NOTE Airway General Information Procedure Start Time/Medication Administration: 11/19/2021 11:47 AM Patient location during procedure: OR Staffing MASTER CERTIFIED RV TECHNICIAN: Tila Lewis APRN.MASTER CERTIFIED RV TECHNICIAN Performed by: MASTER CERTIFIED RV TECHNICIAN Indications and Patient Condition Preoxygenated: yes Patient [...] none. Airway not difficult SIGNATURE: Tila Lewis APRN.MASTER CERTIFIED RV TECHNICIAN PATIENT NAME: Nancy Henriquez DATE: November 19, 2021 TIME: 11:58 AM CSN: [id number] NoteHNO ID: [id number] Author: Deven Larios MD Service: ? Author [...] units and selenium 10 mcg) daily - [id number] ORAL Take by mouth once daily. No [...] without gangrene (primary encount (more content not included)...[facility]01-10-2022 NoteHNO ID: [id number] Author: Annabella Bangura APRN.HOUSEHOLD APPLIANCE MECHANIC Service: ? Author Type: Nurse Practitioner Type: [...] 400 units and selenium 10 mcg) daily [id number] ORAL Take by mouth once daily. FAMILY [...] Discussed expected course of illness Annabella Bangura APRN.CNPAultman HospitalEvaluation note* Diagnosis Burning with urination- Primary Dysuria documented in this encounter [facility] note* Diagnosis Urinary frequency- Primary Burning with urination Dysuria [facility] Diagnosis Non-recurrent acute suppurative otitis media of left ear without spontaneous rupture of tympanic membrane- Primary documented in this encounter [facility] note* Diagnosis Congestion of right ear- Primary Vertigo Dizziness and giddiness documented in this encounter [facility] Summary Purpose Family History No Family History Records FoundNo Family History Records Found Advance Directives No Advanced Directives Records FoundDocuments on File Type Date Recorded Patient Food Safety Coordinator Expl anation Advance Directive(s) 11/19/2021 9:32 AM Advance Directive(s) 11/01/2021 11:34 AM Additional Source Comments INFORMATION SOURCE (unrecogn ized section and content) DATE CREATED AUTHOR AUTHOR'S ORGANIZ ATION 09/14/2022 [facility] Source Comments (unrecognize d section and content) In the event this informatio n is protected by the Federal Confidentiality of Alcohol and Drug Abuse Patient Records regulations: The Federal rules restrict any use of the information to criminally investigate or prosecute any alcohol or drug abuse patient.[facility] the event this information is protected by the Federal Confidentiality of Alcohol and Drug Abuse Patient Records regulations: The Federal rules restrict any use of the information to criminally investigate or prosecute any alcohol or drug abuse patient.[facility] the event this information is protected by the Federal Confidentiality of Alcohol and Drug Abuse Patient Records regulations: The Federal rules restrict any use of the information to criminally investigate or prosecute any alcohol or drug abuse patient.[facility] the event this information is protected by the Federal Confidentiality of Alcohol and Drug Abuse Patient Records regulations: The Federal rules restrict any use of the information to criminally investigate or prosecute any alcohol or drug abuse patient.[facility] the event this information is protected by the Federal Confidentiality of Alcohol and Drug Abuse Patient Records regulations: The Federal rules restrict any use of the information to criminally investigate or prosecute any alcohol or drug abuse patient.[facility] the event this information is protected by the Federal Confidentiality of Alcohol and Drug Abuse Patient Records regulations: The Federal rules restrict any use of the information to criminally investigate or prosecute any alcohol or drug abuse patient.[facility] the event this information is protected by the Federal Confidentiality of Alcohol and Drug Abuse Patient Records regulations: The Federal rules restrict any use of the information to criminally investigate or prosecute any alcohol or drug abuse patient.[facility] Reason for Visit (unrecogniz ed section and content) Reason Comments Urinary Frequency burning with urinati on x 1 day Reason Comments Results Reason Comments external imaging CT abd/pel Reason Comments Ear Problem Feels clogged, x 1 w jamul Reason Comments Ear Pain Right ear problem x 1 day Care Teams (unrecognized sec tion and content) Continuous Improvement Coach Relationship Specialty Start Date End Date Leticia Davidson MD [address] [place] [address] PCP - General 02/10/10 Continuous Improvement Coach Relationship Specialty Start Date End Date Leticia Davidson MD [address] [place] [address] PCP - General 02/10/10 Continuous Improvement Coach Relationship Specialty Start Date End Date Leticia Davidson MD [address] [place] [address] PCP - General 02/10/10 Continuous Improvement Coach Relationship Specialty Start Date End Date Leticia Davidson MD [address] [place] [address] PCP - General 02/10/10 Continuous Improvement Coach Relationship Specialty Start Date End Date Leticia Davidson MD [address] [place] [address] PCP - General 02/10/10 FOR RECORDS PERTAINING [...] BE BASED ON THE PRIMARY CLINICAL RECORDS. [facility]. provides no warranty or guarantee of the accuracy or completeness of information in this document.
--- NOTE | 2023-10-07 19:45 | CT_ITS ---
STUDY: CT ABDOMEN AND PELVIS WITH CONTRAST REASON FOR EXAM: Female, 83 years old. RUQ pain RADIATION DOSAGE (If Supplied By Facility): CTDIvol = ( 12.63 ) mGy, DLP = ( 822.62 ) mGycm TECHNIQUE: Transaxial images were obtained from the dome of the diaphragm to the symphysis pubis without oral contrast. IV 100mL Isovue-300 was administered. Sagittal and coronal images were reconstructed. Individualized dose optimization techniques were used for this CT. COMPARISON: May 05, 2022 FINDINGS: The visualized lung bases are unremarkable. The visualized portions of the heart are within normal limits. Up to 7 mm cysts in the liver. Normal gallbladder and extrahepatic biliary system. Normal spleen. Mild perisplenic fluid. Normal pancreas. Normal bilateral adrenal glands. Normal right kidney. Possible nonobstructive punctate calculi in the left kidney. Normal visualized stomach. There are fluid distended small bowel loops with possible transitional point at the mid upper pelvis. A small bowel obstruction cannot be excluded. Diverticulosis of the colon. The appendix is not visualized. Calcified abdominal aorta. Normal inferior vena cava. Normal retroperitoneum. Normal urinary bladder. Mild pelvic fluid. Normal abdominal wall. Normal osseous structures. CT/Abdomen/Pelvis W IV Cont ONLY IMPRESSION: Hepatic cysts. There are fluid distended small bowel loops. A small bowel obstruction cannot be excluded. Mild perisplenic fluid. Electronically Signed: Zhen Hess DO at 20:22 EST ,
--- OUTSIDE RECORDS SUMMARY | 2023-10-07 19:45 | XMS RPT_ITS | CCD ---
Author Name Unknown Address [address] [place] [address] Organization [facility] Care Team Providers Care Satellite Installation Technician Name Role Phone Leticia Davidson MD Primary Care Provider [phone] LETICIA DAVIDSON Primary Care Unavailable LETICIA DAVIDSON [...] substance 4 Other: See Comments [facility] Work Phone: Medications Current Medications Medication Drug [...] Misael Hernandez MD Work Phone: [facility] 09-14-2022 09:44-0500 Body weight 69.13 kg Misael Hernandez MD Work Phone: [facility] 09-14-2022 09:44-0500 Diastolic blood pressure 84 mm[Hg] Misael Hernandez MD Work Phone: [facility] 09-14-2022 09:44-0500 Heart rate 82 /min Misael Hernandez MD Work Phone: [facility] 09-14-2022 09:44-0500 Respiratory rate 21 /min Misael Hernandez MD Work Phone: [facility] 09-14-2022 09:44-0500 SaO2% (BldA) [Mass fraction] 97 % Misael Hernandez MD Work Phone: [facility] 09-14-2022 09:44-0500 Systolic blood pressure 140 mm[Hg] Misael Hernandez MD Work Phone: [facility] 08-05-2022 14:01-0400 Body temperature 97.2 [degF] Jahaira Finch APRN.MAINTENANCE SERVICE SUPERVISOR Work Phone: [facility] 08-05-2022 14:01-0400 Body weight 68.49 kg Jahaira Finch APRN.MAINTENANCE SERVICE SUPERVISOR Work Phone: [facility] 08-05-2022 14:01-0400 Diastolic blood pressure 80 mm[Hg] Jahaira Finch APRN.MAINTENANCE SERVICE SUPERVISOR Work Phone: [facility] 08-05-2022 14:01-0400 Heart rate 86 /min Jahaira Finch APRN.MAINTENANCE SERVICE SUPERVISOR Work Phone: [facility] 08-05-2022 14:01-0400 Respiratory rate 16 /min Jahaira Finch APRN.MAINTENANCE SERVICE SUPERVISOR Work Phone: [facility] 08-05-2022 14:01-0400 SaO2% (BldA) [Mass fraction] 97 % Jahaira Finch APRN.MAINTENANCE SERVICE SUPERVISOR Work Phone: [facility] 08-05-2022 14:01-0400 Systolic blood pressure 140 mm[Hg] Jahaira Finch APRN.MAINTENANCE SERVICE SUPERVISOR Work Phone: [facility] 03-30-2022 07:47-0400 Body temperature 96.91 [degF] Logan Barraza SANITARY ENGINEERING TEACHER.MAINTENANCE SERVICE SUPERVISOR Work Phone: [facility] 03-30-2022 07:47-0400 Body weight 68.95 kg Logan Barraza SANITARY ENGINEERING TEACHER.MAINTENANCE SERVICE SUPERVISOR Work Phone: [facility] 03-30-2022 07:47-0400 Diastolic blood pressure 62 mm[Hg] Logan Barraza SANITARY ENGINEERING TEACHER.MAINTENANCE SERVICE SUPERVISOR Work Phone: [facility] 03-30-2022 07:47-0400 Heart rate 72 /min Logan Barraza SANITARY ENGINEERING TEACHER.MAINTENANCE SERVICE SUPERVISOR Work Phone: [facility] 03-30-2022 07:47-0400 Respiratory rate 16 /min Logan Barraza SANITARY ENGINEERING TEACHER.MAINTENANCE SERVICE SUPERVISOR Work Phone: [facility] 03-30-2022 07:47-0400 SaO2% (BldA) [Mass fraction] 99 % Logan Barraza SANITARY ENGINEERING TEACHER.MAINTENANCE SERVICE SUPERVISOR Work Phone: [facility] 03-30-2022 07:47-0400 Systolic blood pressure 120 mm[Hg] Logan Barraza SANITARY ENGINEERING TEACHER.MAINTENANCE SERVICE SUPERVISOR Work Phone: [facility] 03-02-2022 08:02-0400 Body temperature 97.3 [degF] Misael Hernandez MD Work Phone: [facility] 03-02-2022 08:02-0400 Body weight 68.04 kg Misael Hernandez MD Work Phone: [facility] 03-02-2022 08:02-0400 Diastolic blood pressure 64 mm[Hg] Misael Hernandez MD Work Phone: [facility] 03-02-2022 08:02-0400 Heart rate 82 /min Misael Hernandez MD Work Phone: [facility] 03-02-2022 08:02-0400 Respiratory rate 16 /min Misael Hernandez MD Work Phone: [facility] 03-02-2022 08:02-0400 SaO2% (BldA) [Mass fraction] 98 % Misael Hernandez MD Work Phone: [facility] 03-02-2022 08:02-0400 Systolic blood pressure 110 mm[Hg] Misael Hernandez MD Work Phone: [facility] Encounters Encounter Date Encounter Type Care Provider Facility Start: 09-14-2022 End: 09-14-2022 ambulatory [facility] Facility:[facility] Start: 09-14-2022 End: 09-14-2022 Patient encounter procedure Misael Hernandez MD Work Phone: [facility] Procedures Date Procedure Procedure Detail Performing Clinician Start: 03-02-2022 Urnls dip stick/tabl et rgnt auto w/o microscopy Misael Hernandez MD Work Phone: Start: 09-06-2018 Adult depression screening assessment Misael Hernandez MD Work Phone: Plan of Treatment Date Care Activity Detail Author Start: 03-30-2025 DIABETES SCREEN DIABETES SCREEN [facility] Start: 01-10-2023 Urine microalbumin profile DTAP,TDAP,TD (2 - Td or Tdap) [facility] Start: 06-11-2022 Influenza vaccination [facility] Start: 05-24-2022 DIABETES SCREEN DIABETES SCREEN [facility] Start: 03-30-2022 End: 05-30-2022 Basic metabolic 2000 panel - Serum or Plasma [facility] Work Phone: Immunizations Immunization Date Immunization Notes Care Provider Angela beaulieu 08-26-2017 pneumococcal conjuga te vaccine, 13 valent Misael Hernandez MD Work Phone: [facility] 07-11-2017 influenza, high dose seasonal, preservative-free Misael Hernandez MD Work Phone: [facility] 08-24-2014 influenza, high dose seasonal, preservative-free Misael Hernandez MD Work Phone: [facility] 01-10-2013 tetanus toxoid, redu marie diphtheria toxoid, and acellular pertussis vaccine, adsorbed Misael Hernandez MD Work Phone: [facility] Work Phone: 08-26-2012 influenza virus vacc ine, unspecified formulation Misael Hernandez MD Work Phone: [facility] 02-10-2010 pneumococcal polysaccharide vaccine, 23 valent Misael Hernandez MD Work Phone: [facility] Payers Date Payer Category Payer Medicare [id number] 2020 Unknown MMO MMO MEDICARE SUPPLEMENT [id number] 2020-Present [phone] [address] [place] [address] Indemnity [id number] 2020 Unknown MMO MMO MEDICARE SUPPLEMENT [id number] 2020-Present [phone] [address] [place] [address] Indemnity [id number] 2006 Medicare MEDICARE MEDICAR E A AND B [id number] 2006-Present [phone] [address] [place] [id number] Medicare [id number] 2006 Medicare MEDICARE MEDICAR E A AND B [id number] 2006-Present [phone] [place] [address] Medicare [id number] 2006 Medicare [id number] Social History Date Type Detail Facility Tobacco smoking stat [facility] Never smoked tobacco [facility] Work Phone: Start: 03-02-2022 End: 09-14-2022 Alcohol intake Current drinker of alcohol (finding) [facility] Start: 1940 Sex Assigned At Not on file [facility] Start: 02-20-2022 End: 09-14-2022 Exposure to SARS-CoV-2 (event) Not sure [facility] Work Phone: Medical Equipment Procedure Code Equipment Code Equipment Origin al Text Equipment Identifier Dates Mesh Parietex 6. 6cm Small Collagen Surgical Patch [facility] Composite - [id number] Start: 11-19-2021 Clinical Notes 10-20-2021 to 09-14-2022 Misael Hernandez MD - 09/14/2022 9:49 AM ESTPatient InstructionsJahaira Finch APRN.OMAIRA - 08/05/2022 2:12 PM EDTRileeloisa Castle Ma - 05/06/2022 12:02 PM EDTPatient Instructions Note Date & Type Note Facility 09-14-2022 Note HNO ID: [id number] Author: Misael Hernandez MD Service: ? Author Type: Physician Type: Progress Notes Filed: 09/14/2022 10:15 AM Note Text: Patient presents with: Ear Pain: Right ear problem x 1 day HPI: Feeling right ear popping and congestion since yesterday; reminds her of left ear symptoms treated as otitis media in July. She was evaluated in the [facility] ED 09/12/22 for vertigo and vomiting. Dizziness [...] 400 units and selenium 10 mcg) daily [id number] ORAL Take by mouth once daily. phenazopyridine [...] with PCP or ENT. Misael Hernandez MD [facility] 09-14-2022 History of Present illness Narrative Patient presents with: Ear Pain: Right ear problem x 1 day HPI: Feeling right ear popping and congestion since yesterday; reminds her of left ear symptoms treated as otitis media in July. She was evaluated in the [facility] ED 09/12/22 for vertigo and vomiting. Dizziness [...] MULTIVITAMIN ORAL Take by mouth. OTC PRODUCT [employer] with Lutein one daily OTC PRODUCT Parselenium E (Vitamin E 400 units and selenium 10 mcg) daily [id number] ORAL Take by mouth once daily. phenazopyridine [...] MD documented in this encounter [facility] 08-05-2022 Note HNO ID: [id number] Author: Jahaira Finch APRN.MAINTENANCE SERVICE SUPERVISOR Service: ? Author Type: Nurse Practitioner Type: [...] 400 units and selenium 10 mcg) daily [id number] ORAL Take by mouth once daily. amoxicillin [...] agreeable to treatment plan. Jahaira Finch APRN.CNP [facility] 08-05-2022 Instructions Jahaira Finch APRN.OMAIRA - [...] treatment. documented in this encounter [facility] 08-05-2022 History of Present illness Narrative CC: [...] MULTIVITAMIN ORAL Take by mouth. OTC PRODUCT [employer] with Lutein one daily OTC PRODUCT Parselenium E (Vitamin E 400 units and selenium 10 mcg) daily [id number] ORAL Take by mouth once daily. amoxicillin [...] APRN.OMAIRA documented in this encounter [facility] 05-06-2022 Note HNO ID: [id number] Author: Jadyn Castle Ma Service: ? Author Type: ? Type: Progress Notes Filed: 05/14/2022 5:04 PM Note Text: View External Imaging - CT Scan [ID [id number]] [facility] CT Abd/pelvis Jossie Castillo Ma XR Abdomen. View External Imaging - X-ray [ID [id number]] [facility] 05-06-2022 History of Present illness Narrative View External Imaging - CT Scan [ID [id number]] [facility] CT Abd/pelvis Jossie Pizarrojesus Garcia XR Abdomen. View External Imaging - X-ray [ID [id number]] documented in this encounter [facility] 04-02-2022 Miscellaneous Notes Phone call placed patient [...] APRN.CNP documented in this encounter [facility] 03-30-2022 Miscellaneous Notes Patient given results and verbalized understanding of instructions given. Sarah Qureshi Please notify that bmp normal. Continue with plan as discussed during visit. documented in this encounter [facility] 03-30-2022 Note HNO ID: [id number] Author: Logan Barraza APRN.CNP Service: ? Author [...] MULTIVITAMIN ORAL Take by mouth. OTC PRODUCT [employer] with Lutein one daily OTC PRODUCT Parselenium E (Vitamin E 400 units and selenium 10 mcg) daily [id number] ORAL Take by mouth once daily. cephALEXin [...] CAPSULE Agrees to plan Logan Barraza APRN.OMAIRA [facility] 03-30-2022 History of Present illness Narrative [...] MULTIVITAMIN ORAL Take by mouth. OTC PRODUCT [employer] with Lutein one daily OTC PRODUCT Parselenium E (Vitamin E 400 units and selenium 10 mcg) daily [id number] ORAL Take by mouth once daily. cephALEXin [...] APRN.CNP documented in this encounter [facility] 03-30-2022 Instructions Logan Barraza APRN.OMAIRA - 03/30/2022 [...] down. documented in this encounter [facility] 03-02-2022 Note HNO ID: [id number] Author: Misael Hernandez MD Service: ? Author [...] ORAL Take by mouth. - OTC PRODUCT [employer] with Lutein one daily - OTC PRODUCT Parselenium E (Vitamin E 400 units and selenium 10 mcg) daily - [id number]#182 ORAL Take by mouth once daily. - [...] prophylactic treatment for trips. Misael Hernandez MD [facility] 03-02-2022 History of Present illness Narrative [...] MULTIVITAMIN ORAL Take by mouth. OTC PRODUCT [employer] with Lutein one daily OTC PRODUCT Parselenium E (Vitamin E 400 units and selenium 10 mcg) daily [id number] ORAL Take by mouth once daily. phenazopyridine [...] MD documented in this encounter [facility] 12-31-2021 Note HNO ID: [id number] Author: Anne Pelayo PA-C Service: ? Author Type: Physician Nursing Home Aide Type: Progress Notes Filed: 12/31/2021 7:15 PM Note Text: This note was created using Audiamriter. Subjective Nancy Henriquez is a 81 year [...] ORAL Take by mouth. - OTC PRODUCT [employer] with Lutein one daily - OTC PRODUCT Parselenium E (Vitamin E 400 units and selenium 10 mcg) daily - [id number] ORAL Take by mouth once daily. - [...] Patient agreeable with plan. Anne Pelayo PA-C [facility] 12-30-2021 Note HNO ID: [id number] Author: Yessy Morrow APRN.MAINTENANCE SERVICE SUPERVISOR Service: ? Author Type: Nurse Practitioner Type: Progress Notes Filed: 12/30/2021 8:42 AM Note Text: Subjective HPI HPI [place] F Shirer is a 81 year old [...] have confirmed and edited as necessary, the [facility] Review of Systems Constitutional: Negative for chills [...] ER evaluation. Yessy Morrow APRN.OMAIRA Morrow APRN.OMAIRA [facility] 11-26-2021 Note HNO ID: [id number] Author: Dany Webb PA-C Service: ? Author Type: Physician Nursing Home Aide Type: Progress Notes Filed: 11/26/2021 2:30 PM Note Text: FOLLOW UP VISIT - HERNIA NAME: Nancy Quezada [facility] NO.: [id number] DATE OF SERVICE: 11/26/2021 : 1940 REFERRING [...] pillow. -Supplement diet with Boost, Ensure or [place] instant breakfast shakes until appetite has returned [...] agreed with the plan. Dany Webb PA-C [facility] documented as of this encounter (statuses as of 03/02/2022) [facility] History of Past illness Narrative* Problem Noted Date Resolved Date Incisional hernia, without obstruction or gangre ne 11/19/2021 11/19/2021 Cellulitis and abscess of toe, unspecified 11/0902/10/2010 Ingrowing nail 10/25/2008 02/10/2010 documented as of this encounter (statuses as of 03/30/2022) [facility]20[facility] History of Past illness Narrative* Problem Noted Date Resolved Date Incisional hernia, without obstruction or gangre ne 11/19/2021 11/19/2021 Cellulitis and abscess of toe, unspecified 11/0902/10/2010 Ingrowing nail 10/25/2008 02/10/2010 documented as of this encounter (statuses as of 03/30/2022) [facility] History of Past illness Narrative* Problem Noted Date Resolved Date Incisional hernia, without obstruction or gangre ne 11/19/2021 11/19/2021 Cellulitis and abscess of toe, unspecified 11/0902/10/2010 Ingrowing nail 10/25/2008 02/10/2010 documented as of this encounter (statuses as of 04/02/2022) [facility] History of Past illness Narrative* Problem Noted Date Resolved Date Incisional hernia, without obstruction or gangre ne 11/19/2021 11/19/2021 Cellulitis and abscess of toe, unspecified 11/0902/10/2010 Ingrowing nail 10/25/2008 02/10/2010 documented as of this encounter (statuses as of 05/14/2022) [facility] History of Past illness Narrative* Problem Noted Date Resolved Date Incisional hernia, without obstruction or gangre ne 11/19/2021 11/19/2021 Cellulitis and abscess of toe, unspecified 11/0902/10/2010 Ingrowing nail 10/25/2008 02/10/2010 documented as of this encounter (statuses as of 08/05/2022) [facility] History of Past illness Narrative* Problem Noted Date Resolved Date Incisional hernia, without obstruction or gangre ne 11/19/2021 11/19/2021 Cellulitis and abscess of toe, unspecified 11/0902/10/2010 Ingrowing nail 10/25/2008 02/10/2010 documented as of this encounter (statuses as of 09/14/2022) [facility]2022 NoteHNO ID: [id number] Author: Tila Lewis APRN.ECHO TECH Service: Anesthesiology Author Type: Nurse Cyber Security Manager Type: Anesthesia Procedure Notes Filed: 11/19/2021 11:59 AM Note Text: ANESTHESIOLOGY PROCEDURE NOTE Airway General Information Procedure Start Time/Medication Administration: 11/19/2021 11:47 AM Patient location during procedure: OR Staffing ECHO TECH: Tila Lewis APRN.ECHO TECH Performed by: ECHO TECH Indications and Patient Condition Preoxygenated: yes Patient [...] none. Airway not difficult SIGNATURE: Tila Lewis APRN.ECHO TECH PATIENT NAME: Nancy Henriquez DATE: November 19, 2021 TIME: 11:58 AM CSN: [id number] NoteHNO ID: [id number] Author: Deven Larios MD Service: ? Author [...] units and selenium 10 mcg) daily - [id number] ORAL Take by mouth once daily. No [...] without gangrene (primary encount (more content not included)...[facility]01-10-2022 NoteHNO ID: [id number] Author: Annabella Bangura APRN.MAINTENANCE SERVICE SUPERVISOR Service: ? Author Type: Nurse Practitioner Type: [...] 400 units and selenium 10 mcg) daily [id number] ORAL Take by mouth once daily. FAMILY [...] Discussed expected course of illness Annabella Bangura APRN.[facility]NP[facility]* Diagnosis Burning with urination- Primary Dysuria documented in this encounter [facility] note* Diagnosis Urinary frequency- Primary Burning with urination Dysuria [facility] Diagnosis Non-recurrent acute suppurative otitis media of left ear without spontaneous rupture of tympanic membrane- Primary documented in this encounter [facility] note* Diagnosis Congestion of right ear- Primary Vertigo Dizziness and giddiness documented in this encounter [facility] Summary Purpose Family History No Family History Records FoundNo Family History Records Found Advance Directives No Advanced Directives Records FoundDocuments on File Type Date 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 Advance Directive(s) 11/19/2021 9:32 AM Advance Directive(s) 11/01/2021 11:34 AM Additional Source Comments INFORMATION SOURCE (unrecogn ized section and content) DATE CREATED AUTHOR AUTHOR'S ORGANIZ ATION 09/14/2022 [facility] Source Comments (unrecognize d section and content) In the event this informatio n is protected by the Federal Confidentiality of Alcohol and Drug Abuse Patient Records regulations: The Federal rules restrict any use of the information to criminally investigate or prosecute any alcohol or drug abuse patient.[facility] the event this information is protected by the Federal Confidentiality of Alcohol and Drug Abuse Patient Records regulations: The Federal rules restrict any use of the information to criminally investigate or prosecute any alcohol or drug abuse patient.[facility] the event this information is protected by the Federal Confidentiality of Alcohol and Drug Abuse Patient Records regulations: The Federal rules restrict any use of the information to criminally investigate or prosecute any alcohol or drug abuse patient.[facility] the event this information is protected by the Federal Confidentiality of Alcohol and Drug Abuse Patient Records regulations: The Federal rules restrict any use of the information to criminally investigate or prosecute any alcohol or drug abuse patient.[facility] the event this information is protected by the Federal Confidentiality of Alcohol and Drug Abuse Patient Records regulations: The Federal rules restrict any use of the information to criminally investigate or prosecute any alcohol or drug abuse patient.[facility] the event this information is protected by the Federal Confidentiality of Alcohol and Drug Abuse Patient Records regulations: The Federal rules restrict any use of the information to criminally investigate or prosecute any alcohol or drug abuse patient.[facility] the event this information is protected by the Federal Confidentiality of Alcohol and Drug Abuse Patient Records regulations: The Federal rules restrict any use of the information to criminally investigate or prosecute any alcohol or drug abuse patient.[facility] Reason for Visit (unrecogniz ed section and content) Reason Comments Urinary Frequency burning with urinati on x 1 day Reason Comments Results Reason Comments external imaging CT abd/pel Reason Comments Ear Problem Feels clogged, x 1 w akiak Reason Comments Ear Pain Right ear problem x 1 day Care Teams (unrecognized sec tion and content) Satellite Installation Technician Relationship Specialty Start Date End Date Leticia Davidson MD [address] [place] [address] PCP - General 02/10/10 Satellite Installation Technician Relationship Specialty Start Date End Date Leticia Davidson MD [address] [place] [address] PCP - General 02/10/10 Satellite Installation Technician Relationship Specialty Start Date End Date Leticia Davidson MD [address] [place] [address] PCP - General 02/10/10 Satellite Installation Technician Relationship Specialty Start Date End Date Leticia Davidson MD [address] [place] [address] PCP - General 02/10/10 Satellite Installation Technician Relationship Specialty Start Date End Date Leticia Davidson MD [address] [place] [address] PCP - General 02/10/10 FOR RECORDS PERTAINING [...] BE BASED ON THE PRIMARY CLINICAL RECORDS. [facility]. provides no warranty or guarantee of the accuracy or completeness of information in this document.
[2023-10-07] MEDS: Morphine 4 MG/ML Syringe 2 MG IV (19:55)
--- NOTE | 2023-10-07 20:29 | PCM.HP.STD ---
[facility] - General General Date of Admission: 10/07/23 Date of Service: 10/07/23 Chief Complaint: Abdominal pain HPI Narrative NANCY LOAIZA, is a 83 F who presented to [facility] ED on 10/07/2023 with abdominal pain and nausea/vomiting. Patient seen at bedside in the ED, daughter present. There is initially concern for acute cholecystitis, as patient seemed to report acute onset right upper quadrant pain. However, gallbladder ultrasound was normal. Dr. Evangelista with general surgery evaluated the patient, noted that she had more left-sided abdominal pain and mild tenderness to palpation with some distention on exam. Patient notably has history of umbilical hernia repair about 5 years ago, and remote history of appendectomy. CT abdomen pelvis showed fluid distended small bowel loops concerning for small bowel obstruction. Per Dr. Evangelista, patient reported feeling improved in the ED from earlier today, had not had any episodes of vomiting since arrival. Patient and daughter decided to hold off on having NG tube placed in the ED, and Dr. Evangelista requested admission to medicine. On my review, patient was laying comfortably in bed, conversing normally, no acute distress. Stated she felt much more comfortable now than previously, had very mild abdominal pain. Denied any fevers or chills, chest pain, shortness of breath. Patient lives at home with her , is very active at baseline and does all things around the home for his without issue. No other acute concerns this time. [facility] Medical History Kidney stones Non-smoker Vertigo Home Medications calcium carbonate 600 mg calcium (1,500 mg) tablet 600 mg PO DAILY supplement 05/10/19 [History Last Taken 10/06/23] cholecalciferol (vitamin D3) 10 mcg (400 unit) tablet 400 unit PO DAILY Supplimentation 05/10/19 [History Last Taken 10/06/23] conjugated estrogens 0.625 mg/gram vaginal cream 1 g topical TU as needed 05/10/19 [History Last Taken 05/09/19] hbjyikqwnor-oqzgtulbe-[id number] C-Mn 750 mg-600 mg-55 mg-5 mg tablet 2 ea PO DAILY supplement 05/10/19 [History Last Taken 10/06/23] magnesium 250 mg tablet 250 mg PO DAILY supplement 05/10/19 [History Last Taken 10/06/23] multivitamin 1 ea PO DAILY supplimentation 05/10/19 [History Last Taken 10/06/23] vit A 300 mcg-C 200 mg-E 27 mg-lutein 2 mg and minerals tablet 2 ea PO DAILY supplement 05/10/19 [History Last Taken 10/06/23] vitamin E 268 mg (400 unit) capsule 400 unit PO DAILY supplement 05/10/19 [History Last Taken 10/06/23] Allergy/AdvReac Type Severity Reaction Status Date / Time No Known Allergies Allergy Verified 10/07/23 16:01 Surgical History H/O hernia repair History of appendectomy History of rotator cuff surgery Social History household members: spouse and children housing: house Smoking Status: Never smoker alcohol intake: never ROS Constitutional Constitutional: Denies chills, fatigue, fever(s) or weakness Eyes Eyes: Denies change in vision Cardiovascular Cardiovascular: Denies chest pain Respiratory/Chest Respiratory/Chest: Denies cough Gastrointestinal Gastrointestinal: Reports abdominal pain, nausea and vomiting; Denies constipation or diarrhea Genitourinary Genitourinary: Denies dysuria Musculoskeletal Musculoskeletal: Denies arthralgias or back pain Neurologic Neurologic: Denies dizziness, focal weakness or headache(s) Vital Signs Vital Signs Vital Signs: 10/07/23 16:02 10/07/23 17:34 10/07/23 19:38 Temperature 96.0 F L 98.6 F Temperature Source Temporal Pulse Rate 74 76 80 Respiratory Rate 16 17 18 Blood Pressure 167/81 H 149/67 H 157/76 H Blood Pressure Mean 109 94 103 Pulse Ox 98 97 94 Oxygen Delivery Method Room Air Room Air Physical Exam Const alert, oriented x3, no apparent distress, average body habitus, healthy appearing and well nourished Constitutional Narrative: Pleasant elderly female, appears younger than stated age, laying comfortably in bed, conversing normally, no acute distress. General Appearance: cooperative, comfortable, well kempt and well developed HEENT normocephalic, head/scalp atraumatic, hearing grossly normal bilaterally and nasal mucous membranes and turbinates normal HEENT Narrative: Dry mucous membranes. Eyes PERRL, EOMs intact bilaterally and conjunctivae normal Neck full ROM, no lymphadenopathy and supple Lymph Lymphatic: no lymphadenopathy noted Chest inspection of chest normal Resp normal respiratory effort, normal air movement, no use of accessory muscles and clear to auscultation bilaterally Cardio regular rate, regular rhythm, no murmurs and peripheral pulses 2+ throughout GI GI Narrative: Mild tenderness to palpation in umbilical area and left upper quadrant. Otherwise soft and nondistended. Hyperactive bowel sounds noted. Back/Spine normal ROM Extremity normal to inspection, full ROM and no pedal edema Skin no rashes or lesions noted Neuro moves all extremities and no focal motor deficits Speech: speech normal Psych mental status grossly normal Results Lab / Micro Data 10/07/23 17:39 10/07/23 17:39 Labs: Laboratory Results - last 24 hr 10/07/23 17:39: WBC 12.4 H, RBC 5.15, Hgb 15.1 H, Hct 46.6, MCV 90.5, MCH 29.3, MCHC 32.4, RDW Std Deviation 44.4 H, RDW Coeff of Joni 13.3, Plt Count 295, MPV 10.3, Immature Gran % (Auto) 0.400, Neut % (Auto) 84.1 H, Lymph % (Auto) 9.0 L, Crawford % (Auto) 6.0, Eos % (Auto) 0.2, Baso % (Auto) 0.3, Absolute Neuts (auto) 10.4 H, Absolute Lymphs (auto) 1.12, Nucleated RBC % 0, Sodium 137, Potassium 4.2, Chloride 102, Carbon Dioxide 28.0, Anion Gap 7, BUN 18, Creatinine 0.88, Est GFR (MDRD) Af Amer 79, Est GFR (MDRD) Non-Af 66, BUN/Creatinine Ratio 20.5 H, Glucose 129 H, Calcium 9.5, Total Bilirubin 0.80, AST 29, ALT 22, Alkaline Phosphatase 77, Total Protein 7.3, Albumin 3.6, Globulin 3.7, Albumin/Globulin Ratio 1.0, Lipase 18 Imagaing Radiology Impression Gallbladder Ultrasound 10/07/23 18:05 IMPRESSION: Cholelithiasis. Positive sonographic Kay''s sign. No biliary dilatation. Heterogeneous liver with questionable nodules. Follow-up CT is recommended. Right renal cyst. Electronically Signed: Zhen Hess DO at 19:12 EST , Abdomen/Pelvis CT 10/07/23 19:45 IMPRESSION: Hepatic cysts. There are fluid distended small bowel loops. A small bowel obstruction cannot be excluded. Mild perisplenic fluid. Electronically Signed: Zhen Hess DO at 20:22 EST , Assessment & Plan Assessment/Plan (1) Small intestine obstruction: PLAN: Plan Patient is an 83-year-old female who presented to [facility] ED on 10/07/2023 with abdominal pain and nausea/vomiting. 1. Small bowel obstruction CT abdomen pelvis showed fluid distended small bowel loops concerning for small bowel obstruction. Prior history of umbilical hernia repair about 5 years ago, remote appendectomy. ? Admit under inpatient status to [facility]. General surgery consulted. Surgery evaluated in ED, no need for NG tube placement for now as patient has symptomatically improved. N.p.o. for now. Will monitor closely. Continue maintenance IV fluids. Zofran as needed for nausea. 2. Mild leukocytosis ? WBC count 12 K in ED. Suspect primarily due to hemoconcentration, low concern for infection. Follow-up a.m. CBC. ? Patient has minimal past medical history, is on several ehlc-wmz-[id number] vitamins at home, not on any other prescribed home medications. DVT prophylaxis: Lovenox CODE STATUS: Full code, verified Expected disposition: Home, TBD Total clinical time spent by myself addressing the patient's medical issues, reviewing all the data, and collaborating with patient's care team: 40 minutes. Charges/Coding Visit Charges Inpatient E&M: 00918 Init Hosp L1
[2023-10-07 20:40] VITALS: BMI 30.7
--- OUTSIDE RECORDS SUMMARY | 2023-10-07 21:26 | XMS RPT_ITS | CCD ---
Author Name Unknown Address [address] [place] [address] Organization [facility] Care Team Providers Care Space Sciences Director Name Role Phone Leticia Davidson MD Primary [...] Allergy to substance 4 Other: See Comments [facility] Work Phone: Medications Current Medications Medication [...] Date Time Vital Sign Value Performing Clinician Dinana baker 09-14-2022 09:44-0500 Body temperature 96.6 [degF] Misael Hernandez MD Work Phone: [facility] 09-14-2022 09:44-0500 Body weight 69.13 kg Misael Hernandez MD Work Phone: [facility] 09-14-2022 09:44-0500 Diastolic blood pressure 84 mm[Hg] Misael Hernandez MD Work Phone: [facility] 09-14-2022 09:44-0500 Heart rate 82 /min Misael Hernandez MD Work Phone: [facility] 09-14-2022 09:44-0500 Respiratory rate 21 /min Misael Hernandez MD Work Phone: [facility] 09-14-2022 09:44-0500 SaO2% (BldA) [Mass fraction] 97 % Misael Hernandez MD Work Phone: [facility] 09-14-2022 09:44-0500 Systolic blood pressure 140 mm[Hg] Misael Hernandez MD Work Phone: [facility] 08-05-2022 14:01-0400 Body temperature 97.2 [degF] Jahaira Finch APRN.GROUTMAN Work Phone: [facility] 08-05-2022 14:01-0400 Body weight 68.49 kg Jahaira Finch APRN.GROUTMAN Work Phone: [facility] 08-05-2022 14:01-0400 Diastolic blood pressure 80 mm[Hg] Jahaira Finch APRN.GROUTMAN Work Phone: [facility] 08-05-2022 14:01-0400 Heart rate 86 /min Jahaira Finch APRN.GROUTMAN Work Phone: [facility] 08-05-2022 14:01-0400 Respiratory rate 16 /min Jahaira Finch APRN.GROUTMAN Work Phone: [facility] 08-05-2022 14:01-0400 SaO2% (BldA) [Mass fraction] 97 % Jahaira Finch APRN.GROUTMAN Work Phone: [facility] 08-05-2022 14:01-0400 Systolic blood pressure 140 mm[Hg] Jahaira Finch APRN.GROUTMAN Work Phone: [facility] 03-30-2022 07:47-0400 Body temperature 96.91 [degF] Logan Barraza DENTAL LABORATORY MANAGER.GROUTMAN Work Phone: [facility] 03-30-2022 07:47-0400 Body weight 68.95 kg Logan Barraza DENTAL LABORATORY MANAGER.GROUTMAN Work Phone: [facility] 03-30-2022 07:47-0400 Diastolic blood pressure 62 mm[Hg] Logan Barraza DENTAL LABORATORY MANAGER.GROUTMAN Work Phone: [facility] 03-30-2022 07:47-0400 Heart rate 72 /min Logan Barraza DENTAL LABORATORY MANAGER.GROUTMAN Work Phone: [facility] 03-30-2022 07:47-0400 Respiratory rate 16 /min Logan Barraza DENTAL LABORATORY MANAGER.GROUTMAN Work Phone: [facility] 03-30-2022 07:47-0400 SaO2% (BldA) [Mass fraction] 99 % Logan Barraza DENTAL LABORATORY MANAGER.GROUTMAN Work Phone: [facility] 03-30-2022 07:47-0400 Systolic blood pressure 120 mm[Hg] Logan Barraza DENTAL LABORATORY MANAGER.GROUTMAN Work Phone: [facility] 03-02-2022 08:02-0400 Body temperature 97.3 [degF] Misael Hernandez MD Work Phone: [facility] 03-02-2022 08:02-0400 Body weight 68.04 kg Misael Hernandez MD Work Phone: [facility] 03-02-2022 08:02-0400 Diastolic blood pressure 64 mm[Hg] Misael Hernandez MD Work Phone: [facility] 03-02-2022 08:02-0400 Heart rate 82 /min Misael Hernandez MD Work Phone: [facility] 03-02-2022 08:02-0400 Respiratory rate 16 /min Misael Hernandez MD Work Phone: [facility] 03-02-2022 08:02-0400 SaO2% (BldA) [Mass fraction] 98 % Misael Hernandez MD Work Phone: [facility] 03-02-2022 08:02-0400 Systolic blood pressure 110 mm[Hg] Misael Hernandez MD Work Phone: [facility] Encounters Encounter Date Encounter Type Care Provider Facility Start: 09-14-2022 End: 09-14-2022 ambulatory [facility] Facility:[facility] Start: 09-14-2022 End: 09-14-2022 Patient encounter procedure Misael Hernandez MD Work Phone: [facility] Procedures Date Procedure Procedure Detail Performing Clinician Start: 03-02-2022 Urnls dip stick/tabl et rgnt auto w/o microscopy Misael Hernandez MD Work Phone: Start: 09-06-2018 Adult depression screening assessment Misael Hernandez MD Work Phone: Plan of Treatment Date Care Activity Detail Author Start: 03-30-2025 DIABETES SCREEN DIABETES SCREEN [facility] Start: 01-10-2023 Urine microalbumin profile DTAP,TDAP,TD (2 - Td or Tdap) [facility] Start: 06-11-2022 Influenza vaccination [facility] Start: 05-24-2022 DIABETES SCREEN DIABETES SCREEN [facility] Start: 03-30-2022 End: 05-30-2022 Basic metabolic 2000 panel - Serum or Plasma [facility] Work Phone: Immunizations Immunization Date Immunization Notes Care Provider Angela beaulieu 08-26-2017 pneumococcal conjuga te vaccine, 13 valent Misael Hernandez MD Work Phone: [facility] 07-11-2017 influenza, high dose seasonal, preservative-free Misael Hernandez MD Work Phone: [facility] 08-24-2014 influenza, high dose seasonal, preservative-free Misael Hernandez MD Work Phone: [facility] 01-10-2013 tetanus toxoid, redu marie diphtheria toxoid, and acellular pertussis vaccine, adsorbed Misael Hernandez MD Work Phone: [facility] Work Phone: 08-26-2012 influenza virus vacc ine, unspecified formulation Misael Hernandez MD Work Phone: [facility] 02-10-2010 pneumococcal polysaccharide vaccine, 23 valent Misael Hernandez MD Work Phone: [facility] Payers Date Payer Category Payer Medicare [id number] 2020 Unknown MMO MMO MEDICARE SUPPLEMENT [id number] 2020-Present [phone] [address] [place] [address] Indemnity [id number] 2020 Unknown MMO MMO MEDICARE SUPPLEMENT [id number] 2020-Present [phone] [address] [place] [address] Indemnity [id number] 2006 Medicare MEDICARE MEDICAR E A AND B [id number] 2006-Present [phone] [place] [id number] Medicare [id number] 2006 Medicare MEDICARE MEDICAR E A AND B [id number] 2006-Present [phone] [place] [address] Medicare [id number] 2006 Medicare [id number] Social History Date Type Detail Facility Tobacco smoking stat [facility] Never smoked tobacco [facility] Work Phone: Start: 03-02-2022 End: 09-14-2022 Alcohol intake Current drinker of alcohol (finding) [facility] Start: 1940 Sex Assigned At Not on file [facility] Start: 02-20-2022 End: 09-14-2022 Exposure to SARS-CoV-2 (event) Not sure [facility] Work Phone: Medical Equipment Procedure Code Equipment Code Equipment Origin al Text Equipment Identifier Dates Mesh Parietex 6. 6cm Small Collagen Surgical Patch [facility] [employer] - [id number] Start: 11-19-2021 Clinical Notes 10-20-2021 to 09-14-2022 Misael Hernandez MD - 09/14/2022 9:49 AM ESTPatient InstructionsJahaira Finch APRN.OMAIRA - 08/05/2022 2:12 PM EDTRileeloisa Castle Ma - 05/06/2022 12:02 PM EDTPatient Instructions Note Date & Type Note Facility 09-14-2022 Note HNO ID: [id number] Author: iMsael Hernandez MD Service: ? Author Type: Physician Type: Progress Notes Filed: 09/14/2022 10:15 AM Note Text: Patient presents with: Ear Pain: Right ear problem x 1 day HPI: Feeling right ear popping and congestion since yesterday; reminds her of left ear symptoms treated as otitis media in July. She was evaluated in the [facility] ED 09/12/22 for vertigo and vomiting. Dizziness [...] 400 units and selenium 10 mcg) daily [id number] ORAL Take by mouth once daily. phenazopyridine [...] with PCP or ENT. Misael Hernandez MD [facility] 09-14-2022 History of Present illness Narrative Patient presents with: Ear Pain: Right ear problem x 1 day HPI: Feeling right ear popping and congestion since yesterday; reminds her of left ear symptoms treated as otitis media in July. She was evaluated in the [facility] ED 09/12/22 for vertigo and vomiting. Dizziness [...] MULTIVITAMIN ORAL Take by mouth. OTC PRODUCT [employer] with Lutein one daily OTC PRODUCT Parselenium E (Vitamin E 400 units and selenium 10 mcg) daily [id number] ORAL Take by mouth once daily. phenazopyridine [...] Misael Hernandez MD documented in this encounter [facility] 08-05-2022 Note HNO ID: [id number] Author: Jahaira Fnich APRN.GROUTMAN Service: ? Author Type: Nurse Practitioner Type: [...] 400 units and selenium 10 mcg) daily [id number] ORAL Take by mouth once daily. amoxicillin [...] agreeable to treatment plan. Jahaira Finch APRN.CNP [facility] 08-05-2022 Instructions Jahaira Finch APRN.OMAIRA - [...] but need treatment. documented in this encounter [facility] 08-05-2022 History of Present illness Narrative [...] MULTIVITAMIN ORAL Take by mouth. OTC PRODUCT [employer] with Lutein one daily OTC PRODUCT Parselenium E (Vitamin E 400 units and selenium 10 mcg) daily [id number] ORAL Take by mouth once daily. amoxicillin [...] Jahaira Finch APRN.OMAIRA documented in this encounter [facility] 05-06-2022 Note HNO ID: [id number] Author: Jadyn Castle Ma Service: ? Author Type: ? Type: Progress Notes Filed: 05/14/2022 5:04 PM Note Text: View External Imaging - CT Scan [ID [id number]] [facility] CT Abd/pelvis Jossie Castillo Ma XR Abdomen. View External Imaging - X-ray [ID [id number]] [facility] 05-06-2022 History of Present illness Narrative View External Imaging - CT Scan [ID [id number]] [facility] CT Abd/pelvis Jossie Pizarrojesus Garcia XR Abdomen. View External Imaging - X-ray [ID [id number]] documented in this encounter [facility] 04-02-2022 Miscellaneous Notes Phone call placed [...] Yessy Morrow APRN.CNP documented in this encounter [facility] 03-30-2022 Miscellaneous Notes Patient given results and verbalized understanding of instructions given. Sarah Qureshi Please notify that bmp normal. Continue with plan as discussed during visit. documented in this encounter [facility] 03-30-2022 Note HNO ID: [id number] Author: Logan Barraza APRN.CNP Service: ? Author [...] MULTIVITAMIN ORAL Take by mouth. OTC PRODUCT [employer] with Lutein one daily OTC PRODUCT Parselenium E (Vitamin E 400 units and selenium 10 mcg) daily [id number] ORAL Take by mouth once daily. cephALEXin [...] CAPSULE Agrees to plan Logan Barraza APRN.OMAIRA [facility] 03-30-2022 History of Present illness Narrative [...] MULTIVITAMIN ORAL Take by mouth. OTC PRODUCT [employer] with Lutein one daily OTC PRODUCT Parselenium E (Vitamin E 400 units and selenium 10 mcg) daily [id number] ORAL Take by mouth once daily. cephALEXin [...] Logan Barraza APRN.CNP documented in this encounter [facility] 03-30-2022 Instructions Logan Barraza APRN.OMAIRA - [...] or fluids down. documented in this encounter [facility] 03-02-2022 Note HNO ID: [id number] Author: Misael Hernandez MD Service: ? Author [...] ORAL Take by mouth. - OTC PRODUCT [employer] with Lutein one daily - OTC PRODUCT Parselenium E (Vitamin E 400 units and selenium 10 mcg) daily - [id number] ORAL Take by mouth once daily. - [...] prophylactic treatment for trips. Misael Hernandez MD [facility] 03-02-2022 History of Present illness Narrative [...] MULTIVITAMIN ORAL Take by mouth. OTC PRODUCT [employer] with Lutein one daily OTC PRODUCT Parselenium E (Vitamin E 400 units and selenium 10 mcg) daily [id number] ORAL Take by mouth once daily. phenazopyridine [...] Misael Hernandez MD documented in this encounter [facility] 12-31-2021 Note HNO ID: [id number] Author: Anne Pelayo PA-C Service: ? Author Type: Physician Pocket Setter Lockstitch Type: Progress Notes Filed: 12/31/2021 7:15 PM Note Text: This note was created using Easp[employer] Material Technologyriter. Subjective Nancy Henriquez is a 81 year [...] ORAL Take by mouth. - OTC PRODUCT [employer] with Lutein one daily - OTC PRODUCT Parselenium E (Vitamin E 400 units and selenium 10 mcg) daily - [id number] ORAL Take by mouth once daily. - [...] Patient agreeable with plan. Anne Pelayo PA-C [facility] 12-30-2021 Note HNO ID: [id number] Author: Yessy Morrow APRN.GROUTMAN Service: ? Author Type: Nurse Practitioner Type: Progress Notes Filed: 12/30/2021 8:42 AM Note Text: Subjective HPI HPI Grayling F Shirer is a 81 year old [...] have confirmed and edited as necessary, the [facility] Review of Systems Constitutional: Negative for [...] detail warranting prompt ER evaluation. Yessy Morrow APRN.MOAIRA Morrow APRN.OMAIRA [facility] 11-26-2021 Note HNO ID: [id number] Author: Dany Webb PA-C Service: ? Author Type: Physician Pocket Setter Lockstitch Type: Progress Notes Filed: 11/26/2021 2:30 PM Note Text: FOLLOW UP VISIT - HERNIA NAME: Nancy Quezada [facility] NO.: [id number] DATE OF SERVICE: 11/26/2021 : 1940 REFERRING [...] pillow. -Supplement diet with Boost, Ensure or [place] instant breakfast shakes until appetite has returned [...] agreed with the plan. Dany Webb PA-C [facility] documented as of this encounter (statuses as of 03/02/2022) [facility]02-09-2022 History of Past illness Narrative* Problem Noted Date Resolved Date Incisional hernia, without obstruction or gangre ne 11/19/2021 11/19/2021 Cellulitis and abscess of toe, unspecified 11/0902/10/2010 Ingrowing nail 10/25/2008 02/10/2010 documented as of this encounter (statuses as of 03/30/2022) [facility] History of Past illness Narrative* Problem Noted Date Resolved Date Incisional hernia, without obstruction or gangre ne 11/19/2021 11/19/2021 Cellulitis and abscess of toe, unspecified 11/0902/10/2010 Ingrowing nail 10/25/2008 02/10/2010 documented as of this encounter (statuses as of 03/30/2022) [facility] History of Past illness Narrative* Problem Noted Date Resolved Date Incisional hernia, without obstruction or gangre ne 11/19/2021 11/19/2021 Cellulitis and abscess of toe, unspecified 11/0902/10/2010 Ingrowing nail 10/25/2008 02/10/2010 documented as of this encounter (statuses as of 04/02/2022) [facility] History of Past illness Narrative* Problem Noted Date Resolved Date Incisional hernia, without obstruction or gangre ne 11/19/2021 11/19/2021 Cellulitis and abscess of toe, unspecified 11/0902/10/2010 Ingrowing nail 10/25/2008 02/10/2010 documented as of this encounter (statuses as of 05/14/2022) [facility] History of Past illness Narrative* Problem Noted Date Resolved Date Incisional hernia, without obstruction or gangre ne 11/19/2021 11/19/2021 Cellulitis and abscess of toe, unspecified 11/0902/10/2010 Ingrowing nail 10/25/2008 02/10/2010 documented as of this encounter (statuses as of 08/05/2022) [facility] History of Past illness Narrative* Problem Noted Date Resolved Date Incisional hernia, without obstruction or gangre ne 11/19/2021 11/19/2021 Cellulitis and abscess of toe, unspecified 11/0902/10/2010 Ingrowing nail 10/25/2008 02/10/2010 documented as of this encounter (statuses as of 09/14/2022) [facility]02-09-2022 NoteHNO ID: [id number] Author: Tila Lewis APRN.MEDICAL OFFICE TECHNOLOGY INSTRUCTOR Service: Anesthesiology Author Type: Nurse Heel Pricker Type: Anesthesia Procedure Notes Filed: 11/19/2021 11:59 AM Note Text: ANESTHESIOLOGY PROCEDURE NOTE Airway General Information Procedure Start Time/Medication Administration: 11/19/2021 11:47 AM Patient location during procedure: OR Staffing MEDICAL OFFICE TECHNOLOGY INSTRUCTOR: Tila Lewis APRN.MEDICAL OFFICE TECHNOLOGY INSTRUCTOR Performed by: MEDICAL OFFICE TECHNOLOGY INSTRUCTOR Indications and Patient Condition Preoxygenated: yes Patient [...] none. Airway not difficult SIGNATURE: Tila Lewis APRN.MEDICAL OFFICE TECHNOLOGY INSTRUCTOR PATIENT NAME: Nancy Henriquez DATE: November 19, 2021 TIME: 11:58 AM CSN: [id number] NoteHNO ID: [id number] Author: Deven Larios MD Service: ? Author Type: Physician Type: Progress Notes Filed: 10/21/2021 4:20 PM Note Text: HISTORY AND PHYSICAL Nancy Henriquez 1940 REFERRING PHYSICIAN: Annabelal Bangura A* CHIEF COMPLAINT: Consult (evaluate umbilical [...] units and selenium 10 mcg) daily - [id number] ORAL Take by mouth once daily. No [...] without gangrene (primary encount (more content not included)...[facility]01-10-2022 NoteHNO ID: [id number] Author: Annabella Bangura APRN.GROUTMAN Service: ? Author Type: Nurse Practitioner Type: [...] 400 units and selenium 10 mcg) daily [id number] ORAL Take by mouth once daily. FAMILY [...] Discussed expected course of illness Annabella Bangura APRN.CNPShel[facility] HospitalEvaluation [facility]* Diagnosis Burning with urination- Primary Dysuria documented in this encounter [facility] note* Diagnosis Urinary frequency- Primary Burning with urination Dysuria [facility] Diagnosis Non-recurrent acute suppurative otitis media of left ear without spontaneous rupture of tympanic membrane- Primary documented in this encounter [facility] note* Diagnosis Congestion of right ear- Primary Vertigo Dizziness and giddiness documented in this encounter [facility] Summary Purpose Family History No Family History Records FoundNo Family History Records Found Advance Directives No Advanced Directives Records FoundDocuments on File Type Date Recorded Patient Melter Supervisor Expl anation Advance Directive(s) 11/19/2021 9:32 AM Advance Directive(s) 11/01/2021 11:34 AM Additional Source Comments INFORMATION SOURCE (unrecogn ized section and content) DATE CREATED AUTHOR AUTHOR'S ORGANIZ ATION 09/14/2022 [facility] Source Comments (unrecognize d section and content) In the event this informatio n is protected by the Federal Confidentiality of Alcohol and Drug Abuse Patient Records regulations: The Federal rules restrict any use of the information to criminally investigate or prosecute any alcohol or drug abuse patient.[facility] the event this information is protected by the Federal Confidentiality of Alcohol and Drug Abuse Patient Records regulations: The Federal rules restrict any use of the information to criminally investigate or prosecute any alcohol or drug abuse patient.[facility] the event this information is protected by the Federal Confidentiality of Alcohol and Drug Abuse Patient Records regulations: The Federal rules restrict any use of the information to criminally investigate or prosecute any alcohol or drug abuse patient.[facility] the event this information is protected by the Federal Confidentiality of Alcohol and Drug Abuse Patient Records regulations: The Federal rules restrict any use of the information to criminally investigate or prosecute any alcohol or drug abuse patient.[facility] the event this information is protected by the Federal Confidentiality of Alcohol and Drug Abuse Patient Records regulations: The Federal rules restrict any use of the information to criminally investigate or prosecute any alcohol or drug abuse patient.[facility] the event this information is protected by the Federal Confidentiality of Alcohol and Drug Abuse Patient Records regulations: The Federal rules restrict any use of the information to criminally investigate or prosecute any alcohol or drug abuse patient.[facility] the event this information is protected by the Federal Confidentiality of Alcohol and Drug Abuse Patient Records regulations: The Federal rules restrict any use of the information to criminally investigate or prosecute any alcohol or drug abuse patient.[facility] Reason for Visit (unrecogniz ed section and content) Reason Comments Urinary Frequency burning with urinati on x 1 day Reason Comments Results Reason Comments external imaging CT abd/pel Reason Comments Ear Problem Feels clogged, x 1 w [place] Reason Comments Ear Pain Right ear problem x 1 day Care Teams (unrecognized sec tion and content) Space Sciences Director Relationship Specialty Start Date End Date Leticia Davidson MD [address] [place] [address] PCP - General 02/10/10 Space Sciences Director Relationship Specialty Start Date End Date Leticia Davidson MD [address] [place] [address] PCP - General 02/10/10 Space Sciences Director Relationship Specialty Start Date End Date Leticia Davidson MD [address] [place] [address] PCP - General 02/10/10 Space Sciences Director Relationship Specialty Start Date End Date Leticia Davidson MD [address] [place] [address] PCP - General 02/10/10 Space Sciences Director Relationship Specialty Start Date End Date Leticia Davidson MD [address] [place] [address] PCP - General 02/10/10 FOR RECORDS PERTAINING [...] BE BASED ON THE PRIMARY CLINICAL RECORDS. [facility] provides no warranty or guarantee of the accuracy or completeness of information in this document.
[2023-10-07 21:34] VITALS: BMI 28.2
[2023-10-07 21:45] VITALS: BP 148/68; PULSE 77; RESP 16; TEMP 36.8; O2SAT 94
[2023-10-07 22:06] VITALS: O2SAT 94
[2023-10-08 02:39] VITALS: BP 140/52; PULSE 68; RESP 16; TEMP 36.6; O2SAT 95
[2023-10-08] MEDS: 0.9% Normal Saline (1000mL) 1,000 ML 125 ML IV ×2 (04:28→14:04)
[2023-10-08 05:53] LABS: Hematocrit 37.6 % (37-47); Hemoglobin 12.2 g/dL (12.0-15.0); Mean Corp Hgb Conc 32.4 g/dL (32-36); Mean Corpuscular Hgb 30.1 pg (27.0-32.0); Mean Corpuscular Volume 92.8 fL (81-99); Mean Platelet Vol. 10.5 fl (6.2-12.0); Platelet Count 226 K/mm3 (150-450); RBC Distribution Width CV 13.7 % (11.6-14.6); RBC Distribution Width SD 46.5 fl (35.1-43.9); Red Blood Count 4.05 M/mm3 (4.2-5.4); White Blood Count 7.7 K/mm3 (4.4-11.0)
[2023-10-08 06:49] LABS: Anion Gap 7 (5-15); BUN 15 mg/dL (7-18); BUN/Creat Ratio 21.9 RATIO (10-20); Calcium,Total 8.3 mg/dL (8.5-10.1); Chloride 111 mmol/L (98-107); Creatinine, Serum 0.68 mg/dL (0.55-1.02); EST Glomerular Filtration Rate 87 mL/min (>60); Est Glom Filt Rate - Afr Amer 106 mL/min (>60); Estimated Creatinine Clearance 32.73 ml/min; Glucose 98 mg/dL (74-106); Potassium 3.6 mmol/L (3.5-5.1); Sodium Level 143 mmol/L (136-145)
--- NOTE | 2023-10-08 07:04 | RAD_ITS ---
INDICATION: sbo-gastrografin -- gastrograf-kub immed/1hr/3hr EXAMINATION/TECHNIQUE: Gastrograffin oral contrast was administered orally via mouth to the patient. number of Fluoroscopic Images: 6 COMPARISON: Prior study dated: 10/07/2023 FINDINGS: There is no small bowel obstruction. Small bowel transit time is within normal limits. The mucosal pattern is unremarkable. The terminal ileum is unremarkable. RAD/Small Bowel Series Only IMPRESSION: Interval resolution of small bowel obstruction with contrast seen opacifying the distal colon. Electronically Signed: Jacob Mahoney MD at 18:14 EST ,
--- NOTE | 2023-10-08 07:05 | PN.SURG_ITS ---
Subjective Subjective Patient denies any nausea or vomiting, states abdominal pain is improved, had a couple episodes of flatus. Objective Data Objective Data Vital Signs: Vital Signs Temp Pulse Resp BP Pulse Ox O2 Del Method 97.8 F 68 16 140/52 H 95 Room Air 10/08/23 02:39 10/08/23 02:39 10/08/23 02:39 10/08/23 02:39 10/08/23 02:39 10/08/23 02:39 Oxygen Delivery Method Room Air Weight: 149 lb 7.574 oz Body Mass Index (BMI) 28.2 Intake & Output: Intake and Output for Last 24 Hours 10/06/23 10/07/23 10/08/23 23:59 23:59 23:59 Intake Total 50 / 50 1000 / 1000 Balance 50 / 50 1000 / 1000 Lab / Micro Data 10/08/23 05:15 10/08/23 05:15 Labs: Laboratory Results - last 24 hr 10/07/23 17:39: WBC 12.4 H, RBC 5.15, Hgb 15.1 H, Hct 46.6, MCV 90.5, MCH 29.3, MCHC 32.4, RDW Std Deviation 44.4 H, RDW Coeff of Joni 13.3, Plt Count 295, MPV 10.3, Immature Gran % (Auto) 0.400, Neut % (Auto) 84.1 H, Lymph % (Auto) 9.0 L, [place] % (Auto) 6.0, Eos % (Auto) 0.2, Baso % (Auto) 0.3, Absolute Neuts (auto) 10.4 H, Absolute Lymphs (auto) 1.12, Nucleated RBC % 0, Sodium 137, Potassium 4.2, Chloride 102, Carbon Dioxide 28.0, Anion Gap 7, BUN 18, Creatinine 0.88, Est GFR (MDRD) Af Amer 79, Est GFR (MDRD) Non-Af 66, BUN/Creatinine Ratio 20.5 H , Glucose 129 H, Calcium 9.5, Total Bilirubin 0.80, AST 29, ALT 22, Alkaline Phosphatase 77, Total Protein 7.3, Albumin 3.6, Globulin 3.7, Albumin/Globulin Ratio 1.0, Lipase 18 10/08/23 05:15: WBC 7.7, RBC 4.05 L, Hgb 12.2, Hct 37.6, MCV 92.8, MCH 30.1, MCHC 32.4, RDW Std Deviation 46.5 H, RDW Coeff of Joni 13.7, Plt Count 226, MPV 10.5, Sodium 143, Potassium 3.6, Chloride 111 H, Carbon Dioxide 25.0, Anion Gap 7, BUN 15, Creatinine 0.68, Estim Creat Clear Calc 32.73, Est GFR (MDRD) Af Amer 106, Est GFR (MDRD) Non-Af 87, BUN/Creatinine Ratio 21.9 H, Glucose 98, Calcium 8.3 L Radiography Diagnostic Testing: Radiology Impression Gallbladder Ultrasound 10/07/23 18:05 IMPRESSION: Cholelithiasis. Positive sonographic Kay''s sign. No biliary dilatation. Heterogeneous liver with questionable nodules. Follow-up CT is recommended. Right renal cyst. Electronically Signed: Zhen Hess DO at 19:12 EST , Abdomen/Pelvis CT 10/07/23 19:45 IMPRESSION: Hepatic cysts. There are fluid distended small bowel loops. A small bowel obstruction cannot be excluded. Mild perisplenic fluid. Electronically Signed: Zhen Hess DO at 20:22 EST , Physical Exam Const oriented x3 and no apparent distress Resp normal respiratory effort Cardio regular rate GI soft to palpation Inspection: Negative for abdominal distention Palpation: tender LLQ (No peritoneal signs) Assessment & Plan Assessment/Plan (1) Small intestine obstruction: (2) LLQ abdominal pain: PLAN: Plan Patient is n.p.o. as?still having some left lower quadrant abdominal pain on exam?did report some flatus. Will check small bowel follow-through with Gastrografin this morning. Namrata Evangelista M.D. Pager: [phone] [facility] [address] [place] [address], Outpatient [place], [address] [place] [address] Office: [phone] Charges/Coding Visit Charges Inpatient E&M: 26687 Subs Hosp L2
[2023-10-08] MEDS: 0.9% Saline Lock 10 ML Syringe IV (09:19)
[2023-10-08 09:22] VITALS: BP 130/68; PULSE 68; RESP 16; TEMP 36.7; O2SAT 95
[2023-10-08] MEDS: Enoxaparin 40 MG/0.4 ML Syringe SC (09:56)
--- NOTE | 2023-10-08 12:23 | CASEMGMT ---
NADIA GRIDER Assessment Face to Face with patient for initial transition planning/care coordination assessment. NADIA GRIDER introduced self and role at [facility], pt voices understanding. Pt is A&Ox4 and is resting comfortably in bed and is calm. Pt son at bedside. Care providers, pharmacy, and demographics verified. Admitting dx: SBO LACE Strata: 1 PCP:Emily Specialists: Latasha - Urologist in [place] Preferred Pharmacy: [facility] [place] Insurance: [facility], [facility] [place] Prescription Benefit: Yes LNOK: - Rahul Henriquez, Son - Gómez Henriquez, Son - Dayday Henriquez Living Arrangements: Pt states she lives in a 2 story home with a basement and hand rails with her and two sons. ADLs/IADLs: States complete independence. Pt also has help at home if needed. Transportation: Pt drives. and sons also drive DME: Denies DME use or needs. States they have a cane at home if needed. HHC/SNF: Denies history or needs. Pt?s goal: Pt goal is to DC home with no needs with her and 2 sons. Plan:DC home via son/ with no additional needs, once medically cleared. Jessica Casey RN, CM
[2023-10-08 13:51] VITALS: BP 132/56; PULSE 76; RESP 16; TEMP 36.6; O2SAT 94
--- NOTE | 2023-10-08 16:22 | PCM.DC.SUM ---
Providers Date of Admission: 10/07/23 Date of Discharge: 10/08/23 Primary Care Physician: Dr. Supa Diaz MD Consultations 10/08/23 02:51 Consult: General Surgery Routine Consulting Provider: Namrata Evangelista Reason for Consult: Small bowel obstruction EMERGENT Consult: No MD Notified: Yes Date Notified: 10/08/23 Time Notified: 02:51 Method of Notification: ED Physician Initiated Reason For Visit: SMALL BOWEL OBSTRUCTION Diagnosis Discharge Diagnosis (1) Cholelithiasis: Status: Acute Code(s): K80.20 - Calculus of gallbladder without cholecystitis without obstruction (2) Epigastric abdominal pain: Status: Acute Code(s): R10.13 - Epigastric pain (3) LUQ abdominal pain: Status: Acute Code(s): R10.12 - Left upper quadrant pain (4) LLQ abdominal pain: Status: Acute Code(s): R10.32 - Left lower quadrant pain (5) Small intestine obstruction: Status: Acute Code(s): K56.609 - Unspecified intestinal obstruction, unspecified as to partial versus complete obstruction Medications at Discharge Home Medications calcium carbonate 600 mg calcium (1,500 mg) tablet 600 mg PO DAILY supplement 05/10/19 cholecalciferol (vitamin D3) 10 mcg (400 unit) tablet 400 unit PO DAILY Supplimentation 05/10/19 conjugated estrogens 0.625 mg/gram vaginal cream 1 g topical TU as needed 05/10/19 injhairbgxk-muaxgwscf-hgu C-Mn 750 mg-600 mg-55 mg-5 mg tablet 2 ea PO DAILY supplement 05/10/19 magnesium 250 mg tablet 250 mg PO DAILY supplement 05/10/19 multivitamin 1 ea PO DAILY supplimentation 05/10/19 vit A 300 mcg-C 200 mg-E 27 mg-lutein 2 mg and minerals tablet 2 ea PO DAILY supplement 05/10/19 vitamin E 268 mg (400 unit) capsule 400 unit PO DAILY supplement 05/10/19 Hospital Course Procedures EKG and - (CT of the abdomen and pelvis/small bowel follow-through) Summary of Care Provided Minutes Spent on Discharge: 25 Hospital Course: Mrs. Henriquez is an 83-year-old white female who presented to the emergency department at [facility] on 10/07/2023 due to abdominal pain, nausea, and vomiting. Patient reported that the pain started in her upper abdomen mainly on the right side at about 1 AM on the morning of presentation. This woke her up. She last ate the evening before at 6 PM and had no pain prior. She never had any pain after eating and rarely has any reflux or heartburn. An ultrasound the emergency department was performed of her right upper quadrant and showed gallstones with no gallbladder wall thickening or JORGE L cholestatic fluid and a normal appearing bile duct. She did have a positive sonographic Kay sign as well as indeterminate lesions of the liver that recommended follow-up on CT the in the future. She does have a history of umbilical hernia repair and appendectomy. CT in the emergency department showed fluid distended small bowel loops concerning for small bowel obstruction. She had no episodes of vomiting in the ED so NG was not placed based on decision by patient and her daughter.She was admitted to the medical floor and placed on IV fluids, given antiemetics and pain medication and evaluated by general surgery. On the morning after admission she denied any nausea or vomiting and indicated her abdominal pain had significantly improved. She reported she had a couple episodes of flatus and therefore a Gastrografin small bowel follow-through was performed. Small bowel follow-through did make transition to the colon within 3 hours and she was having bowel movements. A clear diet was initiated which the patient tolerated well and we transitioned her to a soft diet which she did fine with. She had no further abdominal pain nausea or vomiting with p.o. diet and was able to be discharged home in stable condition on 10/08/2023. I have asked her to follow-up with her primary care physician within the next month to order follow-up CT for her abnormal liver lesions that requested follow-up at the time of her admission. No medication changes were made. Discharge diagnoses: Small bowel obstruction-resolved Abnormal CT of the liver--> follow CT recommended Leukocytosis-resolved Physical Exam Narrative Patient states her abdominal pain is significantly better and she is reporting flatus. Const alert, oriented x3, no apparent distress, average body habitus, no limitations, healthy appearing and well nourished Constitutional Narrative: Well-appearing, elderly, white female, sitting up in bed, daughter at bedside, patient appears comfortable and nontoxic General Appearance: cooperative, comfortable, well kempt and well developed Orientation / Consciousness: awake, oriented to person, oriented to place and oriented to time Exam Limitations: no limitations HEENT normocephalic, head/scalp atraumatic, hearing grossly normal bilaterally and moist oral mucous membranes HEENT Narrative: Mallampati 2, no thrush Resp normal respiratory effort, no retractions, no use of accessory muscles and clear to auscultation bilaterally Auscultation: Negative for rales, rhonchi or wheezes Cardio regular rate, regular rhythm, S1 normal heart sound, S2 normal heart sound, no murmurs, no rub, no gallops and no clicks GI normal to inspection, nondistended, normoactive bowel sounds, soft to palpation and non-tender Extremity no clubbing, cyanosis or edema Extremity Narrative: Pulses are 2+ Neuro oriented x3, moves all extremities and no focal motor deficits Speech: speech normal Psych affect normal Psych Narrative: Eye contact is good, patient interacts appropriately, very pleasant Weight / BMI Weight Weight: 67.8 kg Body Mass Index (BMI) 28.2 ABG / Lab / Microbiology Data 10/08/23 05:15 10/08/23 05:15 Laboratory: Laboratory Results - last 24 hr 10/07/23 17:39: WBC 12.4 H, RBC 5.15, Hgb 15.1 H, Hct 46.6, MCV 90.5, MCH 29.3, MCHC 32.4, RDW Std Deviation 44.4 H, RDW Coeff of Ojni 13.3, Plt Count 295, MPV 10.3, Immature Gran % (Auto) 0.400, Neut % (Auto) 84.1 H, Lymph % (Auto) 9.0 L, [place] % (Auto) 6.0, Eos % (Auto) 0.2, Baso % (Auto) 0.3, Absolute Neuts (auto) 10.4 H, Absolute Lymphs (auto) 1.12, Nucleated RBC % 0, Sodium 137, Potassium 4.2, Chloride 102, Carbon Dioxide 28.0, Anion Gap 7, BUN 18, Creatinine 0.88, Est GFR (MDRD) Af Amer 79, Est GFR (MDRD) Non-Af 66, BUN/Creatinine Ratio 20.5 H, Glucose 129 H, Calcium 9.5, Total Bilirubin 0.80, AST 29, ALT 22, Alkaline Phosphatase 77, Total Protein 7.3, Albumin 3.6, Globulin 3.7, Albumin/Globulin Ratio 1.0, Lipase 18 10/08/23 05:15: WBC 7.7, RBC 4.05 L, Hgb 12.2, Hct 37.6, MCV 92.8, MCH 30.1, MCHC 32.4, RDW Std Deviation 46.5 H, RDW Coeff of Joni 13.7, Plt Count 226, MPV 10.5, Sodium 143, Potassium 3.6, Chloride 111 H, Carbon Dioxide 25.0, Anion Gap 7, BUN 15, Creatinine 0.68, Estim Creat Clear Calc 32.73, Est GFR (MDRD) Af Amer 106, Est GFR (MDRD) Non-Af 87, BUN/Creatinine Ratio 21.9 H, Glucose 98, Calcium 8.3 L Radiography Diagnostic Testing: Radiology Impression Gallbladder Ultrasound 10/07/23 18:05 IMPRESSION: Cholelithiasis. Positive sonographic Kay''s sign. No biliary dilatation. Heterogeneous liver with questionable nodules. Follow-up CT is recommended. Right renal cyst. Electronically Signed: Zhen Hess DO at 19:12 EST , Abdomen/Pelvis CT 10/07/23 19:45 IMPRESSION: Hepatic cysts. There are fluid distended small bowel loops. A small bowel obstruction cannot be excluded. Mild perisplenic fluid. Electronically Signed: Zhen Hess DO at 20:22 EST , D/C Instructions Discharge Diet: Light diet - advance as tolerated Discharge Activity: No Restrictions Meaningful Use Info Meaningful Use Diagnoses (Choose all that apply): None applicable Discharge Plan Admission Admit Date/Time: 10/07/23 20:36 Primary Reason for Your Visit: Abdominal pain/nausea/vomiting Attending Provider: Jossie Alarcon Primary Care Provider: Supa Diaz Consulting Providers: Namrata Evangelista; Bebeto Franco Instructions Additional Instructions / Restrictions: 1. A CT of your abdomen and pelvis was done and admission and hepatic cysts were noted in your liver. Follow-up imaging was recommended in the future and can be ordered by your primary care physician. These are suspected to be benign. Discharge Orders/Prescriptions Prescriptions: Continued multivitamin 1 EACH tablet 1 ea PO DAILY conjugated estrogens 1 DOSE cream 1 g topical TU Patient Comments: use 1 gram vaginally once weekly as directed, and small pea sized dabexternally once weekly cholecalciferol (vitamin D3) 400 UNIT tablet 400 unit PO DAILY calcium carbonate 600 MG tablet 600 mg PO DAILY magnesium 250 MG tablet 250 mg PO DAILY vitamin E 400 UNIT capsule 400 unit PO DAILY wezkizdwwlo-bfoqocgcl-uuq C-Mn 1 EACH tablet 2 ea PO DAILY vit A,C and D-fjxvjq-ypoyzhzk 1 EACH tablet 2 ea PO DAILY Referrals / Follow Up: Supa Diaz MD [Primary Care Provider] - Within 1 Month (Hospital follow-up) Disposition Disposition (needs filled in before D/C Order can be placed): Home, Self Care Charges/Coding Visit Charges Inpatient E&M: 93546 Disch Hosp
--- NOTE | 2023-10-08 16:36 | PHA.DC.MR.R ---
Pharmacy [place] Med Reconciliation Pharmacy Service has performed discharge medication reconciliation for this patient. No new medications issued at time of discharge review. Medications reviewed are from previously reported home medications. The patient's discharge medication list was reviewed for discrepancies and discrepancies were resolved. Medications at Discharge Home Medications calcium carbonate 600 mg calcium (1,500 mg) tablet 600 mg PO DAILY supplement 05/10/19 cholecalciferol (vitamin D3) 10 mcg (400 unit) tablet 400 unit PO DAILY Supplimentation 05/10/19 conjugated estrogens 0.625 mg/gram vaginal cream 1 g topical TU as needed 05/10/19 obnrolersvr-bwzcrezll-vqa C-Mn 750 mg-600 mg-55 mg-5 mg tablet 2 ea PO DAILY supplement 05/10/19 magnesium 250 mg tablet 250 mg PO DAILY supplement 05/10/19 multivitamin 1 ea PO DAILY supplimentation 05/10/19 vit A 300 mcg-C 200 mg-E 27 mg-lutein 2 mg and minerals tablet 2 ea PO DAILY supplement 05/10/19 vitamin E 268 mg (400 unit) capsule 400 unit PO DAILY supplement 05/10/19
== END 2023-10-08 16:48 | disposition home or self-care (01) | DRG 390 ==
LOC: ED 19:15 → MS3 21:25
PROVIDERS: Hospitalist; Admitting Provider Surgery; Emergency Provider Emergency Medicine; PCP Family Medicine; Visit Provider Internal Medicine
DX: K56.609 Unspecified intestinal obstruction, unspecified as to partial versus complete obstruction (principal); K76.89 Other specified diseases of liver; K80.20 Calculus of gallbladder without cholecystitis without obstruction; Z90.49 Acquired absence of other specified parts of digestive tract
CPT/HCPCS: 36415; 74177; 74250; 76705; 80048; 80053; 83690; 85025; 85027; 99284; J7030; Q9967; A4216; J2405